=== PATIENT | female | born 1960 | race Caucasian/White ===

== ENCOUNTER → 2020-06-09 17:00 | Outpatient (CLI) | payer OTHER, SELFPAY ==
--- NOTE | ~2020-06-09 | MM_ITS ---
EXAMINATION: MM screening [facility] BI w mandeep HISTORY: Screening mammogram TECHNIQUE: Craniocaudal and mediolateral oblique 3-D tomosynthesis images were obtained and synthetic 2-D images were generated. CAD analysis was submitted and interpreted. COMPARISON: 11/28/2018, 11/23/2017, 11/03/2016 BREAST PARENCHYMAL COMPOSITION: There are scattered areas of fibroglandular density. FINDINGS: RIGHT BREAST: There are masses in the posterior third of the upper outer and lower-outer quadrants of the breast. LEFT BREAST: There is no evidence of suspicious mass, calcification, or architectural distortion to s uggest malignancy. There has been no significant interval change. IMPRESSION: 1. Right breast masses. 2. Additional mammographic views and possible breast ultrasound are recommended. BI-RADS Category 0: Incomplete: Needs additional imaging evaluation. Reviewed, dictated and finalized at location A. PATIONAL HEALTH MANAGER IMPRESSION: 1. Right breast masses. 2. Additional mammographic views and possible breast ultrasound are recommended . BI-RADS Category 0: Incomplete: Needs additional imaging evaluation.
== END ==
PROVIDERS: PCP Registered Nurse; Visit Provider Registered Nurse
DX: Z12.31 Encounter for screening mammogram for malignant neoplasm of breast (principal); R92.8 Other abnormal and inconclusive findings on diagnostic imaging of breast
CPT/HCPCS: 77063; 77067

== ENCOUNTER → 2020-07-12 14:04 | Outpatient (CLI) | payer OTHER, SELFPAY ==
--- NOTE | ~2020-07-12 | MMUS_ITS ---
EXAMINATION: MM diagnostic [facility] RT w mandeep, US breast RT complete HISTORY: Right breast masses reported in posterior third of upper outer and lower-outer quadrants on 06/09/2020 screening mammogram TECHNIQUE: Additional 3-D tomosynthesis images of the right breast were performed and synthetic 2-D i mages were generated. CAD analysis was submitted and interpreted. High resolution complete right [address] ultrasound was performed. COMPARISON: 06/09/2020 bilateral digital screening mammogram FINDINGS: MAMMOGRAPHIC FINDINGS: There is nodular appearing stroma of the right breast. Scattered circumscribed up to approximately 6 mm opacities are noted. Sonographic correlation of the complete right breast was obtained. ULTRASOUND: No suspicious solid lesion or suspicious shadowing of the right breast is evident. C7-8:00 3 cm from nipple: Parallel circumscribed oval hypoechoic 6.4 x 3.9 x 6.3 mm lesion without frank spicious shadowing 9:00 6 cm from nipple: 5 x 2.6 x 3.3 mm parallel circumscribed hypoechoic lesion without suspicious s hadowing 9:00 6 cm from nipple: 3.8 x 3.8 x 4.2 mm sonolucency with through transmission posterior enhancement , consistent with small cyst 9:00 subareolar area: 3.3 x 3.4 mm hypoechoic lesion without suspicious shadowing 10:00-11:00 7.5 cm from nipple: 2.9 x 3.2 x 2.4 mm sonolucent or hypoechoic lesion without suspicious shadowing. IMPRESSION: 1. No mammographic evidence malignancy 2. Routine annual mammographic screening is recommended. BI-RADS Category 2: Benign finding(s). Reviewed, dictated and finalized at location A. PALLIATIVE CARE IMPRESSION: 1. No mammographic evidence malignancy 2. Routine annual mammographic screening is recommended. BI-RADS Category 2: Benign finding(s).
== END ==
PROVIDERS: PCP Registered Nurse; Visit Provider Registered Nurse
DX: N63.10 Unspecified lump in the right breast, unspecified quadrant (principal)
CPT/HCPCS: 76641; 77061; 77065; G0279

== ENCOUNTER → 2020-11-19 10:18 | Outpatient (CLI) | payer OTHER, SELFPAY ==
--- NOTE | ~2020-11-19 | US_ITS ---
US abdomen limited INDICATION: Right upper quadrant pain PROCEDURE: Realtime right upper abdominal ultrasound. COMPARISON: No prior studies for comparison. FINDINGS: The pancreas is normal without focal mass or pancreatic ductal dilation. Liver echotexture is normal without focal mass or intrahepatic biliary dilatation. There is normal directional flow i n the portal vein. The gallbladder is normal without stones, gallbladder wall thickening or pericholecystic fluid. Comm on bile duct measures 4.8 mm. No sonographic Turner's sign. IMPRESSION: 1: Normal limited abdominal ultrasound. Reviewed, dictated and finalized at location A.
== END ==
PROVIDERS: PCP Registered Nurse; Visit Provider Registered Nurse
DX: R10.11 Right upper quadrant pain (principal)
CPT/HCPCS: 76705

== ENCOUNTER 2022-03-12 15:29 | Outpatient (CLI) | payer OTHER, SELFPAY ==
[2022-03-13 11:39] LABS: Toxigenic C. Diff NEGATIVE (NEGATIVE)
== END 2022-03-12 15:30 | disposition home or self-care (01) ==
LOC: ANHLAB 15:32
PROVIDERS: PCP Registered Nurse; Visit Provider Internal Medicine Nephrology
DX: C90.01 Multiple myeloma in remission (principal); R19.7 Diarrhea, unspecified
CPT/HCPCS: 36415; 84443; 87045; 87077; 87177; 87186; 87209; 87427; 87493

== ENCOUNTER → 2023-05-01 12:43 | Outpatient (CLI) | payer OTHER, SELFPAY ==
--- NOTE | ~2023-05-01 | CT_ITS ---
CT Scan of the Chest without Contrast: Clinical Indication: Abnormal chest x-ray Technique: Contiguous sections were acquired throughout the chest without intravenous contrast. Dose reduction technique was used on this scan by utilizing automated exposure control and iterative recon struction technique. The dose-length product (DLP) was 163.74 mGy-cm. Findings: There is no evidence of any significant mediastinal, hilar or axillary lymphadenopathy. The mediastin al soft tissues appear normal. There is no evidence of pleural or pericardial effusion. The lungs are clear. No pulmonary nodules or infiltrates are noted. Images through the upper abdomen reveal no abnormalities. Impression: No significant abnormalities seen. Reviewed, dictated and finalized at location . OMER AGENT Impression: No significant abnormalities seen.
== END ==
PROVIDERS: Visit Provider Registered Nurse
DX: R93.89 Abnormal findings on diagnostic imaging of other specified body structures (principal)
CPT/HCPCS: 71250

== ENCOUNTER 2023-12-05 14:45 | Outpatient (CLI) | payer OTHER, SELFPAY ==
--- NOTE | ~2023-12-05 | MM_ITS ---
EXAMINATION: MM screening [facility] BI w mandeep HISTORY: Screening TECHNIQUE: Craniocaudal and mediolateral oblique 3-D tomosynthesis images were obtained and synthetic 2-D images were generated. CAD analysis was submitted and interpreted. COMPARISON: No prior mammogram is available for comparison at this institution. BREAST PARENCHYMAL COMPOSITION: Dense: The breasts are heterogeneously dense, which may obscure small masses FINDINGS: There are multiple developing bilateral breast masses. There are no suspicious calcificatio ns or architectural distortion. IMPRESSION: 1. Multiple bilateral developing breast masses. 2. Additional spot compression and mediolateral views with possible follow-up breast ultrasound recom mended. BI-RADS Category 0: Incomplete: Needs additional imaging evaluation. Reviewed, dictated and finalized at location B. IMPRESSION: 1. Multiple bilateral developing breast masses. 2. Additional spot compression and mediolateral views with possible follow-up b reast ultrasound recommended. BI-RADS Category 0: Incomplete: Needs additional imaging evaluation.
== END 2023-12-05 14:46 ==
PROVIDERS: PCP Registered Nurse; Visit Provider Registered Nurse
DX: Z12.31 Encounter for screening mammogram for malignant neoplasm of breast (principal); N63.20 Unspecified lump in the left breast, unspecified quadrant; N63.10 Unspecified lump in the right breast, unspecified quadrant
CPT/HCPCS: 77063; 77067

== ENCOUNTER 2024-01-20 08:08 | Outpatient (CLI) | payer OTHER, SELFPAY ==
--- NOTE | ~2024-01-20 | MMUS_ITS ---
EXAMINATION: MM diagnostic [facility] BI w mandeep, US breast BI complete HISTORY: Follow-up bilateral breast masses TECHNIQUE: Additional 3-D tomosynthesis images of the breasts were performed and synthetic 2-D images were generated. CAD analysis was submitted and interpreted. High resolution bilateral complete breas t ultrasound was performed. COMPARISON: Comparison to multiple prior studies sequentially, with oldest reviewed study dated 11/03. BREAST PARENCHYMAL COMPOSITION: Dense: The breasts are heterogeneously dense, which may obscure small masses FINDINGS: MAMMOGRAPHIC FINDINGS: There are bilateral breast masses which are obscured by dense fibroglandular tissue. There are no nancy picious calcifications or architectural distortion. ULTRASOUND: Complete bilateral US of all 4 quadrants of the breasts and retroareolar region was reviewed. Right breast: Multiple simple and complicated cysts of the right breast which are benign. At 2:00, 5 cm from the nipple there is a 6 mm intramammary lymph node. At 7:00, 4 cm from the nipple there is ov al hypoechoic 3 mm mass, likely benign. At 10:00, 8 cm from the nipple there is an oval hypoechoic 1 cm mass which is parallel orientation, posterior acoustic enhancement, likely benign. At 10:00, 8 cm from the nipple there is an oval hypoechoic 6 mm mass, likely benign. Left breast: There are multiple simple and complicated cyst of the left breast which are benign. At 2 :00, 2 cm from the nipple there is an oval hypoechoic 4 mm mass, likely benign. At 3:00, 2 cm from th e nipple there is an oval parallel oriented hypoechoic 6 mm mass, likely benign. At 2:00, 3 cm from t he nipple there is an oval hypoechoic 3 mm mass, likely benign. IMPRESSION: 1. Probable benign bilateral breast masses by ultrasound. 2. Recommend 6 month follow-up diagnostic bilateral mammogram and limited bilateral breast ultrasound . BI-RADS category 3, probably benign findings. Reviewed, dictated and finalized at location B. IMPRESSION: 1. Probable benign bilateral breast masses by ultrasound. 2. Recommend 6 month follow-up diagnostic bilateral mammogram and limited bilat eral breast ultrasound. BI-RADS category 3, probably benign findings.
== END 2024-01-20 08:09 ==
LOC: MICIMG 08:10
PROVIDERS: PCP Registered Nurse; Visit Provider Registered Nurse
DX: R92.8 Other abnormal and inconclusive findings on diagnostic imaging of breast (principal)
CPT/HCPCS: 76641; 77062; 77066; G0279

== ENCOUNTER 2024-08-26 13:11 | Outpatient (CLI) | payer OTHER, SELFPAY ==
--- NOTE | ~2024-08-26 | MMUS_ITS ---
EXAMINATION: MM diagnostic aziza BI w mandeep, US breast BI limited HISTORY: Six-month follow-up TECHNIQUE: 3-D tomosynthesis images of the breasts were performed and synthetic 2-D images were gener ated. CAD analysis was submitted and interpreted. High resolution limited bilateral breast ultrasound was performed. COMPARISON: 01/20/2024, 12/05/2023, 07/12/2020 BREAST PARENCHYMAL COMPOSITION:Dense: The breasts are heterogeneously dense, which may obscure small masses. FINDINGS: MAMMOGRAPHIC FINDINGS: There are multiple low-density circumscribed bilateral masses, some mildly increased, some mildly dec reased. No suspicious calcifications. No distortion are overtly suspicious mass evident. ULTRASOUND: Multiple small scattered cysts are present bilaterally. No overtly suspicious sonographic masses seen in the region scanned. IMPRESSION: No evidence for malignancy. Benign appearing masses bilaterally. BI-RADS Category 2: Benign finding(s). Reviewed, dictated and finalized at location . ME TAX ADJUSTER IMPRESSION: No evidence for malignancy. Benign appearing masses bilaterally. BI-RADS Category 2: Benign finding(s).
--- OUTSIDE RECORDS SUMMARY | 2024-08-26 14:31 | XMS_ITS | Clinical Summary ---
Author Organization [facility] Address [address] [place] [id number] Phone Care Team Providers Care Risk Control Consultant Name Role Phone Gwen Lui Primary Care Provider [phone] Allergies No known active allergies Medications Medication Sig Dispensed Refills Start Date End Date Status cetirizine (ZyrTEC) 10 MG tablet 1 daily 08/29/2015 Active Calcium Carbonate-Vitamin D (CALCIUM PLUS VITAMIN D) 500-50 MG-UNIT capsule 1 dialy 0 10/23/2017 Active omeprazole (PriLOSEC) [address] capsule 1 daliy 0 05/07/2018 Active fluticasone (FLONASE) 50 MCG/ACT nasal spray SHAKE LQ AND U 2 SPRAYS IEN QD 0 03/09/2019 Active famotidine (PEPCID) 20 MG tablet 05/13/2021 Active Daratumumab-Hyaluron idase-fihj 1800-23570 MG-UT/15ML solution 02/28/2021 Activ e acyclovir (ZOVIRAX) 400 MG tablet 03/30/2021 Active aspirin EC 325 MG EC tablet 05/19/2021 Active al mag oxide-diphenhydrAMIN E-nystatin (MAGIC MOUTHWASH) suspension SWISH AND SWALLOW 10 ML BY MOUTH EVERY 4 HOURS NEEDED FOR MUCOSITIS 05/02/2021 Active amLODIPine (NORVASC) 2.5 MG tablet Take 1 tablet (2.5 mg total) by mouth 1 (one) time each day 90 tablet 3 10/11/2021 Active immune globulin, human, (FLEBOGAMMA) infusion Infuse into a venous catheter Active Denosumab (Xgeva) 120 MG/1.7ML solution Inject 120 mg under the skin Active dexamethasone (DECADRON) 4 MG tablet 02/15/2022 Active ezetimibe (ZETIA) 10 MG tablet TAKE 1 TABLET(10 MG) BY MOUTH EVERY DAY 30 tablet 5 05/08/2022 Active pravastatin (PRAVACHOL) 20 MG tablet TAKE 1 TABLET(20 MG) BY MOUTH EVERY DAY 30 tablet 5 06/18/2022 Active Active Problems Problem Noted Date Diagnosed Date Diarrhea 03/12/2022 Essential hypertension 10/11/2021 Hypogammaglobulinemia 07/07/2021 History of vaccination 05/24/2021 Hypercalcemia 03/14/2021 Multiple myeloma in remission 07/21/2018 Stage 3b chronic kidney disease 04/24/2017 Immunizations Name Administration Dates Next Due Hepatitis B 07/02/2019,05/28/2019 Influenza Injectable Mdck Qu adrivalent Preservative 03/19/2019 Influenza LAIV (Nasal) 03/22/2016 Influenza TIV (IM) 02/22/2019,03/25/2013 Influenza, Injectable, Mdck, Preservative Free, Quadrivalt 03/19/2019 Influenza, Injectable, Quadr ivalent, Preservative Free 03/13/2018,03/28/2017 Influenza, Quadrivalent 03/22/2016 Influenza, Unspecified 03/30/2021,2019,03/31/2020,02/22,03/13/2018,03/13/2018,03/28/2017 ,03/28/2017,03/22/2016,03/22/2016,07/2012 Pneumococcal Conjugate 13-Valent 05/04/2021,08/23 Pneumococcal Polysaccharide 11/05/2016 Tdap 05/25/2019,11/26/2016 Zoster 02/15/2018 Zoster Recombinant 07/19/2018,02/16/2018, 018 Family History Medical History Relation Comments Cerebrovascular accident Father Heart disease Mother Kidney disease Neg Hx Kidney stone Neg Hx Relation Status Comments Father Mother Social History Tobacco Use Types Packs/Day Years Used Date Smoking Tobacco: Never Smokeless Tobacco: Never Alcohol Use Standard Drinks/Week Comments No 0 (1 standard drink = 0.6 oz pur e alcohol) AUDIT-C Answer Date Recorded Frequency of Alcohol Consumption Never 11/05/2018 Average Number of Drinks Not on file 019 Frequency of Binge Drinking Not on file 10/22 Sex and Gender Information Value Date Recorded Sex Assigned at Not on file Gender Identity Not on file Sexual Orientation Not on file Last Filed Vital Signs Vital Sign Reading Time Taken Comments Blood Pressure 122/70 03/12/2022 2:48 PM CDT Pulse 72 03/12/2022 2:48 PM CDT Temperature 35.8 C (96.4 F) 03/12/2022 2:48 PM CDT Respiratory Rate - - Oxygen Saturation - - Inhaled Oxygen Concentration - - Weight 64.9 kg (143 lb) 03/12/2022 2:48 PM CDT Height 165.1 cm (5' 5 ) 03/12/2022 2:48 PM CDT Body Mass Index 23.8 03/12/2022 2:48 PM CDT Plan of Treatment Health Maintenance Due Date Last Done Comments Pneumococcal PPSV23/PCV13 65 + Years / Low and Medium Risk (3 of 3 - PPSV23 or PCV20) 10/26/2023 05/04/2021, 11/05/2016, 09/10/2016 COVID-19 Vaccine (3 - 2023-2 5 season) 2024 02/03/2021, 01/13/2021 Influenza Vaccine (#1) 2024 , 03/31/2020, 03/31/2020, Additional history exists Care Teams Risk Control Consultant Relationship Specialty Start Date End Date Gwen Lui [facility] [place] [address] PCP - General Family Medicine 11/07/20
--- OUTSIDE RECORDS SUMMARY | 2024-08-26 14:31 | XMS_ITS | Referral Summary ---
Author Organization [facility] Address [address] [place] [address] Care Team Providers Care Sieve Grader Tender Name Role Phone Herson Adkins MD Unavailable Gwen Lui Primary Care Provider + Encounters Date Type Department Care Team Description 08/25/2024 3:00 PM AIRCRAFT ENGINE MECHANIC SUPERVISOR Infusion [facility] - Infusion [address] [address] Multiple myeloma in relapse (HCC) (Primary Dx) 08/25/2024 2:00 PM AIRCRAFT ENGINE MECHANIC SUPERVISOR Lab [facility] - Lab Collection [address] [facility] [address] [place] [address] Multiple myeloma in relapse (HCC) 08/19/2024 Orders Only [facility] Bone Marrow Transplant [address] [phone] Luisa Brizuela NP Multiple myeloma in relapse (HCC) (Primary Dx) 08/12/2024 8:50 AM AIRCRAFT ENGINE MECHANIC SUPERVISOR E-Visit [facility] Virtual Care [address] [place] [address] Delmy Turcios NP Your Medications 08/12/2024 Patient Self-Triage [facility] [address] [place] [address] Mychart, Generic Provider 07/28/2024 Orders Only [facility] Bone Marrow Transplant 4500 [facility] Floor [address] [place] [address] Nicolas PariAngel Luis mckeon 07/28/2024 11:00 AM AIRCRAFT ENGINE MECHANIC SUPERVISOR Infusion [facility] - Infusion [address] [place] [address] Multiple myeloma in relapse (HCC) (Primary Dx); Multiple myeloma not having achieved remission (HCC); Hypogammaglobulinem ia 07/28/2024 1:30 PM AIRCRAFT ENGINE MECHANIC SUPERVISOR Infusion [facility] - Infusion [address] [place] [address] Multiple myeloma, remission status unspecified (HCC) 07/28/2024 9:00 AM AIRCRAFT ENGINE MECHANIC SUPERVISOR Clinical Support [facility] - Lab Collection 45[address] [facility] Floor [address] [place] [address] Multiple myeloma in relapse (HCC); Multiple myeloma, remission status unspecified (HCC) 07/28/2024 10:00 AM AIRCRAFT ENGINE MECHANIC SUPERVISOR Office Visit [facility] Bone Marrow Transplant [facility] [address] [phone] Luisa Brizuela NP Multiple myeloma in relapse (HCC) (Primary Dx); Multiple myeloma, remission status unspecified (HCC) 07/08/2024 12:39 PM AIRCRAFT ENGINE MECHANIC SUPERVISOR - 07/08/2024 11:59 PM AIRCRAFT ENGINE MECHANIC SUPERVISOR Hospital Encounter [address] [address] Chronic kidney disease (CKD) stage G3b/A1, moderately decreased glomerular filtration rate (GFR) between 30-44 mL/min/1.73 square meter and albuminuria creatinine ratio less than 30 mg/g (HCC) Discharge Disposition: Discharge to home or self care 07/08/2024 1:45 PM AIRCRAFT ENGINE MECHANIC SUPERVISOR Lab [facility] Outpatient Lab at [address] [phone] 07/07/2024 12:39 PM AIRCRAFT ENGINE MECHANIC SUPERVISOR - 07/07/2024 11:59 PM AIRCRAFT ENGINE MECHANIC SUPERVISOR Hospital Encounter [address] [address] Chronic kidney disease (CKD) stage G3b/A1, moderately decreased glomerular filtration rate (GFR) between 30-44 mL/min/1.73 square meter and albuminuria creatinine ratio less than 30 mg/g (HCC) Discharge Disposition: Discharge to home or self care 07/07/2024 12:30 PM AIRCRAFT ENGINE MECHANIC SUPERVISOR Lab [facility] Outpatient Lab at [address] [address] Chronic kidney disease (CKD) stage G3b/A1, moderately decreased glomerular filtration rate (GFR) between 30-44 mL/min/1.73 square meter and albuminuria creatinine ratio less than 30 mg/g (HCC) (Primary Dx) 07/02/2024 Orders Only [facility] Bone Marrow Transplant [facility] Floor [address] [place] [address] Nkechi kearney, Herson Delgado MD Multiple myeloma, remission status unspecified (HCC) (Primary Dx) 06/30/2024 9:30 AM AIRCRAFT ENGINE MECHANIC SUPERVISOR Infusion [facility] - Infusion [address] [facility] Floor [address] [place] [address] Multiple myeloma in relapse (HCC) (Primary Dx) 06/30/2024 8:30 AM AIRCRAFT ENGINE MECHANIC SUPERVISOR Lab [facility] - Lab Collection [address] [place] [address] Floor 6 [place] [address] Multiple myeloma in relapse (HCC) 06/29/2024 Orders Only [facility] Oncology [address] [place] [phone] Luisa Brizuela NP from Last 3 Months Allergies No known active allergies Medications calcium carbonate-vitami n D3 600 mg(1,500mg) -500 unit capsule Take by mouth 8 Active cetirizine (ZyrTEC) 10 mg tablet 0 Active fluticasone propionate (FLONASE) 50 mcg/actuation nasal spray SHAKE LQ AND U 2 SPRAYS IEN D 0 Active famotidine (PEPCID) 20 mg tablet 1 Active ezetimibe (ZETIA) 10 mg tablet 1 Active pravastatin (PRAVACHOL) 20 mg tablet 2 Active amLODIPine (NORVASC) 10 mg tablet Take 1 tablet (10 mg total) by mouth daily 3 Active denosumab (Xgeva) 120 mg/1.7 mL (70 mg/mL) injection Inject 1.7 mL (120 mg total) under the skin Active denosumab (Xgeva) 120 mg/1.7 mL (70 mg/mL) injection Inject 1.7 mL (120 mg total) under the skin Active dexAMETHasone (DECADRON) 4 mg tablet 3 Active hydroCHLOROthiaz danyelle (MICROZIDE) 12.5 mg capsule Take 1 capsule (12.5 mg total) by mouth daily 3 Active immune globulin (FLEBOGAMMA) infusion Infuse into a venous catheter Active sodium bicarbonate 650 mg tablet TAKE 1 TABLET BY MOUTH TWICE DAILY ON A FULL STOMACH 3 Active prochlorperazine (COMPAZINE) 10 mg tabletIndication s:Multiple myeloma in relapse (HCC) TAKE 1 TABLET(10 MG) BY MOUTH EVERY 6 HOURS NEEDED FOR NAUSEA OR VOMITING 30 tablet 3 4 Active diphenhydrAMINE (BENADRYL) 25 mg capsuleIndicatio ns:Multiple myeloma in relapse (HCC) Take 1 tablet/capsule (25 mg total) by mouth once for 1 dose Take one to three hours prior to each daratumumab dose. 1 tablet/capsu le 5 Active acyclovir (ZOVIRAX) 400 mg tabletIndication s:Multiple myeloma in relapse (HCC) TAKE 1 TABLET BY MOUTH THREE TIMES DAILY 270 tablet 5 Active amoxicillin-clav ulanate (Augmentin) 875-125 mg per tablet Take 1 tablet by mouth 2 (two) times a day 20 tablet 5 Active Active Problems Problem Noted Date Diagnosed Date Diarrhea 03/12/2022 Essential hypertension 10/11/2021 Multiple myeloma not having achieved remission 0 07/07/2021 Hypogammaglobulinemia 07/07/2021 Hypercalcemia 03/14/2021 Multiple myeloma in relapse 01/10/2021 Chronic bilateral low back pain without sciatica 07/19/2019 Hyperlipemia 05/25/2019 Osteoporosis without current pathological fractu re 01/05/2019 Assessment & Plan (01/12/2019 3:45 PM CDT): -received a low dose of Zometa 3 mg in September -her vitamin D level is normal, will continue current calcium and vitamin D supplementation -we discussed the importance of weight bearing exercise -will plan to repeat DEXA scan in 09/2019 Multiple myeloma in remission 07/21/2018 Stage 3 chronic kidney disease 04/24/2017 Abnormality of plasma protein 08/01/2015 Resolved Problems Problem Noted Date Diagnosed Date Resolved Date Kidney problem 04/03/2019 04/03/2019 Bone fracture 04/03/2019 04/03/2019 Overview (04/03/2019): Wrist, foot Muscle tension dysphonia 10/26/201804/2019 Multiple myeloma 08/17/2015 04/03/2019 Immunizations Immunization Administration Dates Next Due Hep B Vaccine 07/02/2019,05/28/2019 Influenza LAIV (Nasal) 03/22/2016 Influenza, Quadrivalent, Abby l Culture-based MDCK, Antibiotic Free, Intramuscular 03/19/2019 Influenza, Quadrivalent, Spl it, Intramuscular 03/22/2016 Influenza, Quadrivalent, Spl it, Preservative Free, Intramuscular 03/13/2018,03/28/2017 Influenza, Trivalent, IM (MDV) 03/25/2013 Influenza, Unspecified 03/21/2023,2021,03/30/2021,03/31,02/22/2019 Pneumococcal Conjugate PCV 13 05/04/2021, 017 Pneumococcal Polysaccharide PPV23 11/05/2016 Tdap 05/25/2019,11/26/2016 ZOSTER LIVE 02/15/2018 ZOSTER Recombinant 07/19/2018,02/16/2018, 018 Social History Tobacco Use Types Packs/Day Years Used Date Smoking Tobacco: Never Passive Smoke Exposure: Never Smokeless Tobacco: Never Tobacco Cessation:Counseling Given: Not Answered Alcohol Use Standard Drinks/Week Comments Never 0 (1 standard drink = 0.6 oz pur e alcohol) AUDIT-C Answer Date Recorded Frequency of Alcohol Consumption Never 11/19/2019 Average Number of Drinks Not on file 020 Frequency of Binge Drinking Not on file 10/23 Comments Unknown Sex and Gender Information Value Date Recorded Sex Assigned at Not on file Legal Sex Female 5:16 AM AIRCRAFT ENGINE MECHANIC SUPERVISOR Gender Identity Female 10/09/2019 10:54 AM CDT Sexual Orientation Not on file Last Filed Vital Signs Vital Sign Reading Time Taken Comments Blood Pressure 120/79 08/25/2024 3:35 PM AIRCRAFT ENGINE MECHANIC SUPERVISOR Pulse 96 08/25/2024 3:35 PM AIRCRAFT ENGINE MECHANIC SUPERVISOR Temperature 36.9 C (98.5 F) 08/25/2024 3:35 PM AIRCRAFT ENGINE MECHANIC SUPERVISOR Respiratory Rate 18 08/25/2024 3:35 PM AIRCRAFT ENGINE MECHANIC SUPERVISOR Oxygen Saturation 96% 08/25/2024 3:35 PM AIRCRAFT ENGINE MECHANIC SUPERVISOR Inhaled Oxygen Concentration - - Weight 67.4 kg (148 lb 9.4 oz) 08/25/2024 2:53 P M AIRCRAFT ENGINE MECHANIC SUPERVISOR Height 162.6 cm (5' 4 ) 05/26/2024 9:59 AM AIRCRAFT ENGINE MECHANIC SUPERVISOR Body Mass Index 25.51 05/26/2024 9:59 AM AIRCRAFT ENGINE MECHANIC SUPERVISOR Plan of Treatment Not on file Procedures Procedure Name Priority Date/Time Associated Diagnosis Comments EGFR STAT 08/25/2024 2:18 PM AIRCRAFT ENGINE MECHANIC SUPERVISOR Multiple myeloma in relapse (HCC) DIFFERENTIAL AUTO Routine 08/25/2024 2:1 8 PM AIRCRAFT ENGINE MECHANIC SUPERVISOR Multiple myeloma in relapse (HCC) CBC WITH AUTO DIFFERENTIAL Routine 08/25/2024 2:18 PM AIRCRAFT ENGINE MECHANIC SUPERVISOR Multiple myeloma in relapse (HCC) COMPREHENSIVE METABOLIC PANEL STAT 08/25/2024 2:18 PM AIRCRAFT ENGINE MECHANIC SUPERVISOR Multiple myeloma in relapse (HCC) URIC ACID Routine 08/25/2024 2:18 PM AIRCRAFT ENGINE MECHANIC SUPERVISOR Multiple myeloma in relapse (HCC) EGFR STAT 07/28/2024 9:28 AM AIRCRAFT ENGINE MECHANIC SUPERVISOR Multiple myeloma in relapse (HCC) DIFFERENTIAL AUTO Routine 07/28/2024 9:2 8 AM AIRCRAFT ENGINE MECHANIC SUPERVISOR Multiple myeloma in relapse (HCC) IGA Routine 07/28/2024 9:28 AM AIRCRAFT ENGINE MECHANIC SUPERVISOR Multiple myeloma, remission status unspecified (HCC) IGG Routine 07/28/2024 9:28 AM AIRCRAFT ENGINE MECHANIC SUPERVISOR Multiple myeloma, remission status unspecified (HCC) IGM Routine 07/28/2024 9:28 AM AIRCRAFT ENGINE MECHANIC SUPERVISOR Multiple myeloma, remission status unspecified (HCC) IMMUNOGLOBULIN FREE LIGHT CHAINS Routine 07/28/2024 9:28 AM AIRCRAFT ENGINE MECHANIC SUPERVISOR Multiple myeloma, remission status unspecified (HCC) LACTATE DEHYDROGENASE Routine 07/28/2024 9:28 AM AIRCRAFT ENGINE MECHANIC SUPERVISOR Multiple myeloma, remission status unspecified (HCC) PROTEIN ELECTROPHORESIS, WITH REFLEX, SERUM Routine 07/28/2024 9:28 AM AIRCRAFT ENGINE MECHANIC SUPERVISOR Multiple myeloma, remission status unspecified (HCC) IMMUNOTYPING Routine 07/28/2024 9:28 AM AIRCRAFT ENGINE MECHANIC SUPERVISOR Multiple myeloma, remission status unspecified (HCC) CBC WITH AUTO DIFFERENTIAL Routine 07/28/2024 9:28 AM AIRCRAFT ENGINE MECHANIC SUPERVISOR Multiple myeloma in relapse (HCC) COMPREHENSIVE METABOLIC PANEL STAT 07/28/2024 9:28 AM AIRCRAFT ENGINE MECHANIC SUPERVISOR Multiple myeloma in relapse (HCC) URIC ACID Routine 07/28/2024 9:28 AM AIRCRAFT ENGINE MECHANIC SUPERVISOR Multiple myeloma in relapse (HCC) PROTEIN / CREATININE RATIO, URINE, RANDOM Routine 07/08/2024 9:50 PM AIRCRAFT ENGINE MECHANIC SUPERVISOR Chronic kidney disease (CKD) stage G3b/A1, moderately decreased glomerular filtration rate (GFR) between 30-44 mL/min/1.73 square meter and albuminuria creatinine ratio less than 30 mg/g (HCC) EGFR Routine 07/07/2024 12:39 PM AIRCRAFT ENGINE MECHANIC SUPERVISOR Chronic kidney disease (CKD) stage G3b/A1, moderately decreased glomerular filtration rate (GFR) between 30-44 mL/min/1.73 square meter and albuminuria creatinine ratio less than 30 mg/g (HCC) CBC WITHOUT DIFFERENTIAL Routine 07/07/2024 12:39 PM AIRCRAFT ENGINE MECHANIC SUPERVISOR Chronic kidney disease (CKD) stage G3b/A1, moderately decreased glomerular filtration rate (GFR) between 30-44 mL/min/1.73 square meter and albuminuria creatinine ratio less than 30 mg/g (HCC) RENAL FUNCTION PANEL Routine 07/07/2024 12:39 PM AIRCRAFT ENGINE MECHANIC SUPERVISOR Chronic kidney disease (CKD) stage G3b/A1, moderately decreased glomerular filtration rate (GFR) between 30-44 mL/min/1.73 square meter and albuminuria creatinine ratio less than 30 mg/g (HCC) PTH Routine 07/07/2024 12:39 PM AIRCRAFT ENGINE MECHANIC SUPERVISOR Chronic kidney disease (CKD) stage G3b/A1, moderately decreased glomerular filtration rate (GFR) between 30-44 mL/min/1.73 square meter and albuminuria creatinine ratio less than 30 mg/g (HCC) EGFR STAT 06/30/2024 8:40 AM AIRCRAFT ENGINE MECHANIC SUPERVISOR Multiple myeloma in relapse (HCC) DIFFERENTIAL AUTO Routine 06/30/2024 8:4 0 AM AIRCRAFT ENGINE MECHANIC SUPERVISOR Multiple myeloma in relapse (HCC) CBC WITH AUTO DIFFERENTIAL Routine 06/30/2024 8:40 AM AIRCRAFT ENGINE MECHANIC SUPERVISOR Multiple myeloma in relapse (HCC) COMPREHENSIVE METABOLIC PANEL STAT 06/30/2024 8:40 AM AIRCRAFT ENGINE MECHANIC SUPERVISOR Multiple myeloma in relapse (HCC) URIC ACID Routine 06/30/2024 8:40 AM AIRCRAFT ENGINE MECHANIC SUPERVISOR Multiple myeloma in relapse (HCC) DEXA AXIAL SKELETON BONE DENSITY 1 OR MORE SITES Schedule Routine, Read Routine (OP Routine) 09/17/2023 9:31 AM CDT Osteoporosis without current pathological fracture, unspecified osteoporosis type from Last 3 Months or Most Recently Relevant to Health Maintenance Results * (ABNORMAL) eGFR (08/25/2024 2:18 PM AIRCRAFT ENGINE MECHANIC SUPERVISOR) eGFR 40(L) >=60 mL/min/1. 73 m2 Comment: Interpretive Data Reference Interval Normal >/= 90 mL/min/1.73m2 Mildly decreased* 60 - 89 mL/min/1.73m2 Mildly to moderately decreased 45 - 59 mL/min/1.73m2 Moderately to severely decreased 30 - 44 mL/min/1.73m2 Severely decreased 15 - 29 mL/min/1.73m2 Kidney Failure < 15 mL/min/1.73m2 *Relative to young adult level Estimated glomerular filtration rate is determined by the 2020 CKD-EPI equation recommended by the National Kidney Foundation (A Unifying Approach to GFR Estimation: Recommendations of the NKF-ASK Task Force on Reassessing the Inclusion of Race in Diagnosing Kidney Disease, JASN 2020). The CKD-EPI equation should not be used for patients with unstable renal function and has not been validated in children and those over 70. Current interpretive data was last reviewed 2021. Blood 08/25/2024 2:18 PM AIRCRAFT ENGINE MECHANIC SUPERVISOR 08/25/2024 2:35 PM AIRCRAFT ENGINE MECHANIC SUPERVISOR Luisa Brizuela NP LAB BLOOD ORDERABLES Mary lockhart Result [facility] Department [place] [address] * (ABNORMAL) Differential, auto (08/25/2024 2:18 PM AIRCRAFT ENGINE MECHANIC SUPERVISOR) Neutrophil abs 2.9 1.5 - 6.5 K/cumm Comment:Testing performed by : [facility], [address] [place] [address] Lymphocyte abs 4.5(H) 0.8 - 3.3 K/cumm [facility] Comment:Testing performed by : [facility], [address] [place] [address] Monocyte abs 0.8 0.2 - 0.8 K/cumm [facility] Comment:Testing performed by : [facility], [address] [place] [address] Eosinophil abs 0.1 0.0 - 0.5 K/cumm [facility] Comment:Testing performed by : [facility], [address] [place] [address] Basophil abs 0.0 0.0 - 0.1 K/cumm [facility] Comment:Testing performed by : [facility], [address] [place] [phone] Neutrophil pct 34.7 % [facility] Comment: Interpretive Data Percent cell count reference ranges are not reported, since discordance with absolute values may lead to misinterpretation of CBC data. Current Interpretive Data was last revised on 2017. Testing performed by: [facility], [address] [place] [phone] Lymphocyte pct 54.1 % [facility] Comment: Interpretive Data Percent cell count reference ranges are not reported, since discordance with absolute values may lead to misinterpretation of CBC data. Current Interpretive Data was last revised on 2017. Testing performed by: [facility], [address] [place] [phone] Monocyte pct 9.7 % [facility] Comment: Interpretive Data Percent cell count reference ranges are not reported, since discordance with absolute values may lead to misinterpretation of CBC data. Current Interpretive Data was last revised on 2017. Testing performed by: [facility], [address] [place] [phone] Eosinophil pct 1.3 % [facility] Comment: Interpretive Data Percent cell count reference ranges are not reported, since discordance with absolute values may lead to misinterpretation of CBC data. Current Interpretive Data was last revised on 2017. Testing performed by: [facility], [address] [place] [phone] Basophil pct 0.2 % [facility] Comment: Interpretive Data Percent cell count reference ranges are not reported, since discordance with absolute values may lead to misinterpretation of CBC data. Current Interpretive Data was last revised on 2017. Testing performed by: [facility], [address] [place] [phone] Blood 08/25/2024 2:18 PM AIRCRAFT ENGINE MECHANIC SUPERVISOR 08/25/2024 2:34 PM AIRCRAFT ENGINE MECHANIC SUPERVISOR Luisa Brizuela VIDEOTAPE SALES REPRESENTATIVE LAB BLOOD ORDERABLES Mary richy Result [facility] Department of [place] [phone] * (ABNORMAL) CBC with auto differential (08/25/2024 2:18 PM AIRCRAFT ENGINE MECHANIC SUPERVISOR) WBC 8.3 3.8 - 9.9 K/cumm Comment:Testing performed by : [facility], [address] [place] [address] Hgb 12.9 11.9 - 15.5 g/dL [facility] Comment:Testing performed by : [facility], [address] [place] [address] Hct 37.8 35.6 - 45.5 % [facility] Comment:Testing performed by : [facility], [address] [place] [address] Plt 202 150 - 400 K/cumm [facility] Comment:Testing performed by : [facility], [address] [place] [address] MPV 8.2 6.8 - 10.4 fL [facility] Comment:Testing performed by : [facility], [address] [place] [address] RBC 3.97 3.90 - 5.20 M/cumm [facility] Comment:Testing performed by : [facility], [address] [place] [address] MCV 95.5 81.3 - 96.4 fL [facility] Comment:Testing performed by : [facility], [address] [place] [address] MCH 32.6 27.1 - 33.3 pg [facility] Comment:Testing performed by : [facility], [address] [place] [address] MCHC 34.2 32.3 - 35.7 g/dL [facility] Comment:Testing performed by : [facility], [address] [place] [address] RDW CV 16.1(H) 11.1 - 14.9 % [facility] Comment:Testing performed by : [facility], [address] [place] [phone] NRBC abs 0.00 0.00 - 0.01 K/cumm [facility] Comment:Testing performed by : [facility], [address] [place] [phone] Blood 08/25/2024 2:18 PM AIRCRAFT ENGINE MECHANIC SUPERVISOR 08/25/2024 2:34 PM AIRCRAFT ENGINE MECHANIC SUPERVISOR Luisa Brizuela LAB BLOOD ORDERABLES Mary l Result [facility] Department [place] [address] * (ABNORMAL) Uric acid (08/25/2024 2:18 PM AIRCRAFT ENGINE MECHANIC SUPERVISOR) Uric acid 7.7(H) 2.5 - 7.0 mg/dL Blood 08/25/2024 2:18 PM AIRCRAFT ENGINE MECHANIC SUPERVISOR 08/25/2024 2:35 PM AIRCRAFT ENGINE MECHANIC SUPERVISOR [facility] LAB BLOOD ORDERABLES Mary l Result Performing Organization Address [facility] de Phone Number [facility] Department [place] [address] * (ABNORMAL) Comprehensive metabolic panel (08/25/2024 2:18 PM AIRCRAFT ENGINE MECHANIC SUPERVISOR) Sodium 147(H) 135 - 145 mmol/L Potassium, pl 3.7 3.3 - 4.9 mmol/L [facility] Chloride 108 97 - 110 mmol/L [facility] CO2 30 22 - 32 mmol/L [facility] Anion gap 9 2 - 15 mmol/L [facility] BUN 17 6 - 25 mg/dL [facility] Creatinine 1.46(H) 0.60 - 1.10 mg/dL [facility] Glucose 89 70 - 199 mg/dL [facility] Comment: Interpretive Data Fasting glucose >/= 126 mg/dl is diagnostic for diabetes. Fasting is defined as no caloric intake for at least 8 hours. Fasting glucose between 100 mg/dl to 125 mg/dl is diagnostic of prediabetes. In a patient with classic symptoms of hyperglycemia or hyperglycemic crisis, a random glucose >/= 200 mg/dl is diagnostic for diabetes. In the absence of unequivocal hyperglycemia, results should be confirmed by repeat testing. The classification and Diagnosis of Diabetes Diabetes Care 2021; 46: S19-S40. Current interpretive data was last revised 2022. Calcium 9.6 8.5 - 10.3 mg/dL [facility] Bilirubin, total 0.3 0.1 - 1.2 mg/dL [facility] Protein, pl 7.0 6.5 - 8.5 g/dL [facility] Albumin 4.3 3.5 - 5.0 g/dL [facility] Alk phos 59 40 - 130 Units/L [facility] ALT 29 7 - 45 Units/L [facility] AST 20 10 - 45 Units/L [facility] Blood 08/25/2024 2:18 PM AIRCRAFT ENGINE MECHANIC SUPERVISOR 08/25/2024 2:35 PM AIRCRAFT ENGINE MECHANIC SUPERVISOR us Luisa Brizuela NP LAB BLOOD ORDERABLES Mary l Result [facility] Department of [employer] [place] [address] * Immunotyping, serum with interpretation (07/28/2024 9:28 AM AIRCRAFT ENGINE MECHANIC SUPERVISOR) Immunosubtraction Please see comment Comment: NO PARAPROTEIN DETECTED Reviewed and signed by Clay Roman MD, PhD 07/29/2024 Blood 07/28/2024 9:28 AM AIRCRAFT ENGINE MECHANIC SUPERVISOR 07/28/2024 10:49 AM AIRCRAFT ENGINE MECHANIC SUPERVISOR us Herson Adkins MD LAB BLOOD ORDER EMILY Final Result [facility] Department of [employer] [place] [address] * (ABNORMAL) eGFR (07/28/2024 9:28 AM AIRCRAFT ENGINE MECHANIC SUPERVISOR) eGFR 48(L) >=60 mL/min/1. 73 m2 Comment: Interpretive Data Reference Interval Normal >/= 90 mL/min/1.73m2 Mildly decreased* 60 - 89 mL/min/1.73m2 Mildly to moderately decreased 45 - 59 mL/min/1.73m2 Moderately to severely decreased 30 - 44 mL/min/1.73m2 Severely decreased 15 - 29 mL/min/1.73m2 Kidney Failure < 15 mL/min/1.73m2 *Relative to young adult level Estimated glomerular filtration rate is determined by the 2020 CKD-EPI equation recommended by the National Kidney Foundation (A Unifying Approach to GFR Estimation: Recommendations of the NKF-ASK Task Force on Reassessing the Inclusion of Race in Diagnosing Kidney Disease, JASN 2020). The CKD-EPI equation should not be used for patients with unstable renal function and has not been validated in children and those over 70. Current interpretive data was last reviewed 2021. Blood 07/28/2024 9:28 AM AIRCRAFT ENGINE MECHANIC SUPERVISOR 07/28/2024 9:44 AM AIRCRAFT ENGINE MECHANIC SUPERVISOR Herson Adkins MD LAB BLOOD ORDER EMILY Final Result [facility] Department [place] [address] * Differential, auto (07/28/2024 9:28 AM AIRCRAFT ENGINE MECHANIC SUPERVISOR) Pathologist [facility] Neutrophil abs 5.2 1.5 - 6.5 K/cumm Comment:Testing performed by : [facility], [address] [place] [phone] Lymphocyte abs 3.1 0.8 - 3.3 K/cumm NITHIN WRIGHT Comment:Testing performed by : [facility], [address] [place] [phone] Monocyte abs 0.8 0.2 - 0.8 K/cumm NITHIN WRIGHT Comment:Testing performed by : [facility], [address] [place] [phone] Eosinophil abs 0.2 0.0 - 0.5 K/cumm CERNER BJH Comment:Testing performed by : [facility], [address] [place] [phone] Basophil abs 0.0 0.0 - 0.1 K/cumm CERNER [facility] Comment:Testing performed by : [facility], [address] [place] [phone] Neutrophil pct 55.7 % CERNER BJ Comment: Interpretive Data Percent cell count reference ranges are not reported, since discordance with absolute values may lead to misinterpretation of CBC data. Current Interpretive Data was last revised on 2017. Testing performed by: [facility], [address] [place] [phone] Lymphocyte pct 33.6 % CERNER BJ Comment: Interpretive Data Percent cell count reference ranges are not reported, since discordance with absolute values may lead to misinterpretation of CBC data. Current Interpretive Data was last revised on 2017. Testing performed by: [facility], [address] [place] [phone] Monocyte pct 8.8 % CERNER BJ Comment: Interpretive Data Percent cell count reference ranges are not reported, since discordance with absolute values may lead to misinterpretation of CBC data. Current Interpretive Data was last revised on 2017. Testing performed by: [facility], [address] [place] [phone] Eosinophil pct 1.7 % CERNER BJ Comment: Interpretive Data Percent cell count reference ranges are not reported, since discordance with absolute values may lead to misinterpretation of CBC data. Current Interpretive Data was last revised on 2017. Testing performed by: [facility], [address] [place] [phone] Basophil pct 0.2 % CERNER BJ Comment: Interpretive Data Percent cell count reference ranges are not reported, since discordance with absolute values may lead to misinterpretation of CBC data. Current Interpretive Data was last revised on 2017. Testing performed by: [facility], [address] [place] [phone] Blood 07/28/2024 9:28 AM AIRCRAFT ENGINE MECHANIC SUPERVISOR 07/28/2024 9:35 AM AIRCRAFT ENGINE MECHANIC SUPERVISOR Herson Adkins MD LAB BLOOD ORDER EMILY Final Result Performing Organization Address [facility] Co de Phone Number NITHIN [facility] Noemi [facility] Department [place] [address] * (ABNORMAL) Immunoglobulin free light chains (07/28/2024 9:28 AM AIRCRAFT ENGINE MECHANIC SUPERVISOR) [place]/Lambda ratio BJ 0.79 0.26 - 1.65 Comment: Interpretive Data The Binding Site FreeLite assay procedure was used. Results from different manufacturers or methods may not be comparable. Serial testing should be performed using the same methods and instrumentation. Current Interpretive Data was last revised on 2023. [place] free light chain BJ 0.42 0.33 - 1.94 mg/dL [facility] Comment: Interpretive Data The Binding Site FreeLite assay procedure was used. Results from different manufacturers or methods may not be comparable. Serial testing should be performed using the same methods and instrumentation. Current Interpretive Data was last revised on 2023. Lambda free light chain BJ 0.53(L) 0.57 - 2.63 mg/dL [facility] Comment: Interpretive Data The Binding Site FreeLite assay procedure was used. Results from different manufacturers or methods may not be comparable. Serial testing should be performed using the same methods and instrumentation. Current Interpretive Data was last revised on 2023. Blood 07/28/2024 9:28 AM AIRCRAFT ENGINE MECHANIC SUPERVISOR 07/28/2024 10:49 AM AIRCRAFT ENGINE MECHANIC SUPERVISOR Herson Adkins MD LAB BLOOD ORDER EMILY Final Result NITHIN [facility] Department [place] [address] * CBC with auto differential (07/28/2024 9:28 AM AIRCRAFT ENGINE MECHANIC SUPERVISOR) WBC 9.3 3.8 - 9.9 K/cumm Comment:Testing performed by : [facility], [address] [place] [address] Hgb 14.5 11.9 - 15.5 g/dL CERNER BJ Comment:Testing performed by : [facility], [address] [place], [place] [phone] Hct 42.3 35.6 - 45.5 % CERNER BJ Comment:Testing performed by : [facility], [address] [place], [place] [phone] Plt 199 150 - 400 K/cumm CERNER BJ Comment:Testing performed by : [facility], [address] [place], [place] [phone] MPV 8.1 6.8 - 10.4 fL CERNER BJ Comment:Testing performed by : [facility], [address] [place], [place] [phone] RBC 4.44 3.90 - 5.20 M/cumm CERNER BJ Comment:Testing performed by : [facility], [address] [place] [address] MCV 95.1 81.3 - 96.4 fL CERNER BJ Comment:Testing performed by : [facility], [address] [place], [place] [phone] MCH 32.6 27.1 - 33.3 pg CERNER BJ Comment:Testing performed by : [facility], [address] [place] [address] MCHC 34.3 32.3 - 35.7 g/dL CERNER BJ Comment:Testing performed by : [facility], [address] [place] [address] RDW CV 13.7 11.1 - 14.9 % CERNER BJ Comment:Testing performed by : [facility], [address] [place] [address] NRBC abs 0.00 0.00 - 0.01 K/cumm CERNER BJ Comment:Testing performed by : [facility], [address] [place] [address] [place] [phone] Blood 07/28/2024 9:28 AM AIRCRAFT ENGINE MECHANIC SUPERVISOR 07/28/2024 9:35 AM AIRCRAFT ENGINE MECHANIC SUPERVISOR Herson Adkins MD LAB BLOOD ORDER EMILY Final Result Performing Organization Address [facility] Co de Phone Number [facility] Department [place] [address] * (ABNORMAL) Uric acid (07/28/2024 9:28 AM AIRCRAFT ENGINE MECHANIC SUPERVISOR) Pathologist [facility] Uric acid 7.2(H) 2.5 - 7.0 mg/dL Blood 07/28/2024 9:28 AM AIRCRAFT ENGINE MECHANIC SUPERVISOR 07/28/2024 9:44 AM AIRCRAFT ENGINE MECHANIC SUPERVISOR Herson Adkins MD LAB BLOOD ORDER EMILY Final Result Performing Organization Address [facility] de Phone Number [facility] Department [place] [address] * (ABNORMAL) Protein electrophoresis with reflex, serum with interpretation (07/28/2024 9:28 AM AIRCRAFT ENGINE MECHANIC SUPERVISOR) [facility] Protein, sr 6.5 6.2 - 8.2 g/dL Albumin 4.2 3.2 - 5.0 g/dL [facility] Alpha-1 globulin 0.3 0.2 - 0.4 g/dL [facility] Alpha-2 globulin 0.8 0.5 - 1.0 g/dL [facility] Beta-1 globulin 0.4 0.3 - 0.6 g/dL [facility] Beta-2 globulin 0.4 0.2 - 0.6 g/dL [facility] Gamma globulin 0.4(L) 0.5 - 1.7 g/dL [facility] SPEP interp Please see comment [facility] Comment: No apparent monoclonal peak Decreased gamma globulins Electrophoretic pattern appears different from previous sample 05/27/24 See immunotyping for further information Reviewed and signed by Clay Roman MD, PhD 07/29/2024 Blood 07/28/2024 9:28 AM AIRCRAFT ENGINE MECHANIC SUPERVISOR 07/28/2024 10:49 AM AIRCRAFT ENGINE MECHANIC SUPERVISOR Herson Adkins MD LAB BLOOD ORDER EMILY Final Result Performing Organization Address [facility] de Phone Number [facility] [place] [address] * Lactate dehydrogenase (LD) (07/28/2024 9:28 AM AIRCRAFT ENGINE MECHANIC SUPERVISOR) Lactate dehydrogenase (LDH) 211 100 - 250 Units/L Blood 07/28/2024 9:28 AM AIRCRAFT ENGINE MECHANIC SUPERVISOR 07/28/2024 9:44 AM AIRCRAFT ENGINE MECHANIC SUPERVISOR Herson Adkins MD LAB BLOOD ORDER EMILY Final Result Performing Organization Address [facility] de Phone Number [facility] Department [place] [address] * (ABNORMAL) IgA (07/28/2024 9:28 AM AIRCRAFT ENGINE MECHANIC SUPERVISOR) Immunoglobulin A <50(L) 70 - 400 mg/dL Blood 07/28/2024 9:28 AM AIRCRAFT ENGINE MECHANIC SUPERVISOR 07/28/2024 10:07 AM AIRCRAFT ENGINE MECHANIC SUPERVISOR Herson Adkins MD LAB BLOOD ORDER EMILY Final Result Performing Organization Address [facility] [place] [address] * (ABNORMAL) IgM (07/28/2024 9:28 AM AIRCRAFT ENGINE MECHANIC SUPERVISOR) Immunoglobulin M 25(L) 40 - 230 mg/dL Blood 07/28/2024 9:28 AM AIRCRAFT ENGINE MECHANIC SUPERVISOR 07/28/2024 10:07 AM AIRCRAFT ENGINE MECHANIC SUPERVISOR Herson Adkins MD LAB BLOOD ORDER EMILY Final Result Performing Organization Address [facility]/ZIP Co de Phone Number [facility] Noemi [facility] Department [place] [address] * (ABNORMAL) IgG (07/28/2024 9:28 AM AIRCRAFT ENGINE MECHANIC SUPERVISOR) [facility] Immunoglobulin G 508(L) 700 - 1,600 mg/dL Blood 07/28/2024 9:28 AM AIRCRAFT ENGINE MECHANIC SUPERVISOR 07/28/2024 10:07 AM AIRCRAFT ENGINE MECHANIC SUPERVISOR Herson Adkins MD LAB BLOOD ORDER EMILY Final Result Performing Organization Address [facility] de Phone Number NITHIN [facility] Noemi [facility] Department [place] [address] * (ABNORMAL) Comprehensive metabolic panel (07/28/2024 9:28 AM AIRCRAFT ENGINE MECHANIC SUPERVISOR) [facility] Sodium 146(H) 135 - 145 mmol/L Potassium, pl 3.1(L) 3.3 - 4.9 mmol/L [facility] Chloride 107 97 - 110 mmol/L [facility] CO2 32 22 - 32 mmol/L [facility] Anion gap 7 2 - 15 mmol/L [facility] BUN 14 6 - 25 mg/dL [facility] Creatinine 1.24(H) 0.60 - 1.10 mg/dL [facility] Glucose 111 70 - 199 mg/dL [facility] Comment: Interpretive Data Fasting glucose >/= 126 mg/dl is diagnostic for diabetes. Fasting is defined as no caloric intake for at least 8 hours. Fasting glucose between 100 mg/dl to 125 mg/dl is diagnostic of prediabetes. In a patient with classic symptoms of hyperglycemia or hyperglycemic crisis, a random glucose >/= 200 mg/dl is diagnostic for diabetes. In the absence of unequivocal hyperglycemia, results should be confirmed by repeat testing. The classification and Diagnosis of Diabetes Diabetes Care 2021; 46: S19-S40. Current interpretive data was last revised 2022. Calcium 9.7 8.5 - 10.3 mg/dL [facility] Bilirubin, total 0.3 0.1 - 1.2 mg/dL [facility] Protein, pl 7.0 6.5 - 8.5 g/dL [facility] Albumin 4.4 3.5 - 5.0 g/dL [facility] Alk phos 68 40 - 130 Units/L [facility] ALT 39 7 - 45 Units/L [facility] AST 25 10 - 45 Units/L [facility] Blood 07/28/2024 9:28 AM AIRCRAFT ENGINE MECHANIC SUPERVISOR 07/28/2024 9:44 AM AIRCRAFT ENGINE MECHANIC SUPERVISOR us Herson Adkins MD LAB BLOOD ORDER EMILY Final Result [facility] One [facility] Department [place] [address] * Protein / creatinine ratio, urine, random (07/08/2024 9:50 PM AIRCRAFT ENGINE MECHANIC SUPERVISOR) [facility] Protein, ur, quant 17.3 mg/dL Comment: Interpretive Data No reference range established. Current interpretive data was last revised 2018. Creatinine Ur 162.5 mg/dL [facility] Comment: Interpretive Data No reference range established. Current interpretive data was last revised 2018. Protein/creatinin e ratio 106.5 0.0 - 180.0 mg/g CR [facility] Urine 07/08/2024 9:50 PM AIRCRAFT ENGINE MECHANIC SUPERVISOR 07/08/2024 9:50 PM AIRCRAFT ENGINE MECHANIC SUPERVISOR Narrative [facility] - 07/08/2024 11:26 PM AIRCRAFT ENGINE MECHANIC SUPERVISOR Fax results to Dr Vinay Baer [phone] us Vinay Baer MD LAB URINE ORDERABLES Final R esult [facility] [address] Department [place] [address] * (ABNORMAL) eGFR (07/07/2024 12:39 PM AIRCRAFT ENGINE MECHANIC SUPERVISOR) [facility] eGFR 39(L) >=60 mL/min/1. 73 m2 Comment: Interpretive Data Reference Interval Normal >/= 90 mL/min/1.73m2 Mildly decreased* 60 - 89 mL/min/1.73m2 Mildly to moderately decreased 45 - 59 mL/min/1.73m2 Moderately to severely decreased 30 - 44 mL/min/1.73m2 Severely decreased 15 - 29 mL/min/1.73m2 Kidney Failure < 15 mL/min/1.73m2 *Relative to young adult level Estimated glomerular filtration rate is determined by the 2020 CKD-EPI equation recommended by the National Kidney Foundation (A Unifying Approach to GFR Estimation: Recommendations of the NKF-ASK Task Force on Reassessing the Inclusion of Race in Diagnosing Kidney Disease, JASN 2020). The CKD-EPI equation should not be used for patients with unstable renal function and has not been validated in children and those over 70. Current interpretive data was last reviewed 2021. Blood 07/07/2024 12:3 9 PM AIRCRAFT ENGINE MECHANIC SUPERVISOR 07/07/2024 11:15 PM AIRCRAFT ENGINE MECHANIC SUPERVISOR us Vinay Baer MD LAB BLOOD ORDERABLES Final R esult [facility] [address] Department [place] [address] * (ABNORMAL) CBC without differential (07/07/2024 12:39 PM AIRCRAFT ENGINE MECHANIC SUPERVISOR) WBC 10.7(H) 3.8 - 9.9 K/cumm Hgb 13.8 11.9 - 15.5 g/dL [facility] Hct 43.7 35.6 - 45.5 % [facility] Plt 237 150 - 400 K/cumm [facility] MPV 10.4 9.1 - 12.3 fL [facility] RBC 4.34 3.90 - 5.20 M/cumm [facility] MCV 100.7(H) 81.3 - 96.4 fL [facility] MCH 31.8 27.1 - 33.3 pg [facility] MCHC 31.6(L) 32.3 - 35.7 g/dL [facility] RDW CV 14.1 11.1 - 14.9 % CERNER CH RDW SD 51.2(H) 35.7 - 48.1 fL [facility] NRBC abs 0.00 0.00 - 0.01 K/cumm CERNER CH Blood Venous blood specimen / Unknown 07/07/2024 12:39 PM AIRCRAFT ENGINE MECHANIC SUPERVISOR 07/07/2024 10:50 PM AIRCRAFT ENGINE MECHANIC SUPERVISOR Narrative CERNER [facility] - 07/07/2024 11:25 PM AIRCRAFT ENGINE MECHANIC SUPERVISOR Fax results to Dr Vinay Baer [phone] Vinay Baer MD LAB BLOOD ORDERABLES Final R esult Performing Organization Address [facility] Co de Phone Number [facility] [address] Department [employer] [place] [address] * (ABNORMAL) PTH (07/07/2024 12:39 PM AIRCRAFT ENGINE MECHANIC SUPERVISOR) Pathologist [facility] PTH 71(H) 15 - 65 pg/mL Blood Venous blood specimen / Unknown 07/07/2024 12:39 PM AIRCRAFT ENGINE MECHANIC SUPERVISOR 07/07/2024 10:50 PM AIRCRAFT ENGINE MECHANIC SUPERVISOR Narrative [facility] - 07/07/2024 11:44 PM AIRCRAFT ENGINE MECHANIC SUPERVISOR Fax results to Dr Vinay Baer [phone] Vinay Baer MD LAB BLOOD ORDERABLES Final [facility] Performing Organization Address [facility] de Phone Number [facility] [address] [place] [address] * (ABNORMAL) Renal function panel (07/07/2024 12:39 PM AIRCRAFT ENGINE MECHANIC SUPERVISOR) Sodium 141 135 - 145 mmol/L Potassium, pl 3.8 3.3 - 4.9 mmol/L CERNER Chloride 103 97 - 110 mmol/L [facility] CO2 24 22 - 32 mmol/L [facility] Anion gap 14 2 - 15 mmol/L [facility] BUN 17 6 - 25 mg/dL [facility] Creatinine 1.48(H) 0.60 - 1.10 mg/dL [facility] Glucose 92 70 - 199 mg/dL [facility] Comment: Interpretive Data Fasting glucose >/= 126 mg/dl is diagnostic for diabetes. Fasting is defined as no caloric intake for at least 8 hours. Fasting glucose between 100 mg/dl to 125 mg/dl is diagnostic of prediabetes. In a patient with classic symptoms of hyperglycemia or hyperglycemic crisis, a random glucose >/= 200 mg/dl is diagnostic for diabetes. In the absence of unequivocal hyperglycemia, results should be confirmed by repeat testing. The classification and Diagnosis of Diabetes Diabetes Care 2021; 46: S19-S40. Current interpretive data was last revised 2022. Calcium 9.9 8.5 - 10.3 mg/dL [facility] Phosphorus, pl 3.7 2.3 - 4.5 mg/dL [facility] Albumin 4.6 3.5 - 5.0 g/dL [facility] Blood Venous blood specimen / Unknown 07/07/2024 12:39 PM AIRCRAFT ENGINE MECHANIC SUPERVISOR 07/07/2024 10:50 PM AIRCRAFT ENGINE MECHANIC SUPERVISOR Narrative [facility] - 07/07/2024 11:48 PM AIRCRAFT ENGINE MECHANIC SUPERVISOR Fax results to Dr Vinay Baer [phone] Vinay Baer MD LAB BLOOD ORDERABLES Final R esult NITHIN [address] Department [place] [address] * (ABNORMAL) eGFR (06/30/2024 8:40 AM AIRCRAFT ENGINE MECHANIC SUPERVISOR) eGFR 45(L) >=60 mL/min/1. 73 m2 Comment: Interpretive Data Reference Interval Normal >/= 90 mL/min/1.73m2 Mildly decreased* 60 - 89 mL/min/1.73m2 Mildly to moderately decreased 45 - 59 mL/min/1.73m2 Moderately to severely decreased 30 - 44 mL/min/1.73m2 Severely decreased 15 - 29 mL/min/1.73m2 Kidney Failure < 15 mL/min/1.73m2 *Relative to young adult level Estimated glomerular filtration rate is determined by the 2020 CKD-EPI equation recommended by the National Kidney Foundation (A Unifying Approach to GFR Estimation: Recommendations of the NKF-ASK Task Force on Reassessing the Inclusion of Race in Diagnosing Kidney Disease, JASN 2020). The CKD-EPI equation should not be used for patients with unstable renal function and has not been validated in children and those over 70. Current interpretive data was last reviewed 2021. Blood 06/30/2024 8:40 AM AIRCRAFT ENGINE MECHANIC SUPERVISOR 06/30/2024 8:56 AM AIRCRAFT ENGINE MECHANIC SUPERVISOR us Herson Adkins MD LAB BLOOD ORDER EMILY Final Result NITHIN [facility] Department [place] [address] * (ABNORMAL) Differential, auto (06/30/2024 8:40 AM AIRCRAFT ENGINE MECHANIC SUPERVISOR) Neutrophil abs 4.7 1.5 - 6.5 K/cumm Comment:Testing performed by : [facility], [address] [place] [phone] Lymphocyte abs 4.8(H) 0.8 - 3.3 K/cumm CERNER [facility] Comment:Testing performed by : [facility], [address] [place] [phone] Monocyte abs 0.9(H) 0.2 - 0.8 K/cumm CERNER BJ Comment:Testing performed by : [facility], [address] [place] [phone] Eosinophil abs 0.2 0.0 - 0.5 K/cumm CERHERBIE BJ Comment:Testing performed by : [facility], [address] [place] [phone] Basophil abs 0.0 0.0 - 0.1 K/cumm CERNER BJ Comment:Testing performed by : [facility], [address] [place] [phone] Neutrophil pct 44.6 % CERNER BJ Comment: Interpretive Data Percent cell count reference ranges are not reported, since discordance with absolute values may lead to misinterpretation of CBC data. Current Interpretive Data was last revised on 2017. Testing performed by: [facility], [address] [place] [phone] Lymphocyte pct 45.5 % CERHERBIE [facility] Comment: Interpretive Data Percent cell count reference ranges are not reported, since discordance with absolute values may lead to misinterpretation of CBC data. Current Interpretive Data was last revised on 2017. Testing performed by: [facility], [address] [place] [phone] Monocyte pct 8.1 % CERHERBIE WRIGHT Comment: Interpretive Data Percent cell count reference ranges are not reported, since discordance with absolute values may lead to misinterpretation of CBC data. Current Interpretive Data was last revised on 2017. Testing performed by: [facility], [address] [place] [phone] Eosinophil pct 1.6 % CERHERBIE [facility] Comment: Interpretive Data Percent cell count reference ranges are not reported, since discordance with absolute values may lead to misinterpretation of CBC data. Current Interpretive Data was last revised on 2017. Testing performed by: [facility], [address] [place] [phone] Basophil pct 0.2 % CERHERBIE [facility] Comment: Interpretive Data Percent cell count reference ranges are not reported, since discordance with absolute values may lead to misinterpretation of CBC data. Current Interpretive Data was last revised on 2017. Testing performed by: [facility], [address] [place] [phone] Blood 06/30/2024 8:40 AM AIRCRAFT ENGINE MECHANIC SUPERVISOR 06/30/2024 8:55 AM AIRCRAFT ENGINE MECHANIC SUPERVISOR Herson Adkins MD LAB BLOOD ORDER EMILY Final Result [facility] Department [place] [address] * (ABNORMAL) CBC with auto differential (06/30/2024 8:40 AM AIRCRAFT ENGINE MECHANIC SUPERVISOR) WBC 10.6(H) 3.8 - 9.9 K/cumm Comment:Testing performed by : [facility], [address] [place] [address] Hgb 13.7 11.9 - 15.5 g/dL CERNER BJ Comment:Testing performed by : [facility], [address] [place] [address] Hct 40.9 35.6 - 45.5 % CERNER BJ Comment:Testing performed by : [facility], [address] [place], [place] [phone] Plt 246 150 - 400 K/cumm CERNER BJ Comment:Testing performed by : [facility], [address] [place] [address] MPV 7.7 6.8 - 10.4 fL CERNER BJ Comment:Testing performed by : [facility], [address] [place], [place] [phone] RBC 4.21 3.90 - 5.20 M/cumm CERNER BJ Comment:Testing performed by : [facility], [address] [place], [place] [phone] MCV 97.0(H) 81.3 - 96.4 fL CERNER BJ Comment:Testing performed by : [facility], [address] [place] [address] MCH 32.5 27.1 - 33.3 pg CERNER BJ Comment:Testing performed by : [facility], [address] [place] [address] MCHC 33.5 32.3 - 35.7 g/dL CERNER BJ Comment:Testing performed by : [facility], [address] [place] [address] RDW CV 14.0 11.1 - 14.9 % CERNER BJ Comment:Testing performed by : [facility], [address] [place] [address] NRBC abs 0.00 0.00 - 0.01 K/cumm CERNER BJ Comment:Testing performed by : [facility], [address] [place] [address] Blood 06/30/2024 8:40 AM AIRCRAFT ENGINE MECHANIC SUPERVISOR 06/30/2024 8:55 AM AIRCRAFT ENGINE MECHANIC SUPERVISOR Herson Adkins MD LAB BLOOD ORDER EMILY Final Result Performing Organization Address City/[facility]/ZIP Co de Phone Number [facility] Department [place] [address] * Uric acid (06/30/2024 8:40 AM AIRCRAFT ENGINE MECHANIC SUPERVISOR) Pathologist [facility] Uric acid 6.8 2.5 - 7.0 mg/dL Blood 06/30/2024 8:40 AM AIRCRAFT ENGINE MECHANIC SUPERVISOR 06/30/2024 8:56 AM AIRCRAFT ENGINE MECHANIC SUPERVISOR Herson Adkins MD LAB BLOOD ORDER EMILY Final Result Performing Organization Address [facility] de Phone Number [facility] [place] [address] * (ABNORMAL) Comprehensive metabolic panel (06/30/2024 8:40 AM AIRCRAFT ENGINE MECHANIC SUPERVISOR) Pathologist [facility] Sodium 149(H) 135 - 145 mmol/L Potassium, pl 4.1 3.3 - 4.9 mmol/L [facility] Chloride 110 97 - 110 mmol/L [facility] CO2 29 22 - 32 mmol/L [facility] Anion gap 10 2 - 15 mmol/L [facility] BUN 19 6 - 25 mg/dL [facility] Creatinine 1.31(H) 0.60 - 1.10 mg/dL [facility] Glucose 96 70 - 199 mg/dL [facility] Comment: Interpretive Data Fasting glucose >/= 126 mg/dl is diagnostic for diabetes. Fasting is defined as no caloric intake for at least 8 hours. Fasting glucose between 100 mg/dl to 125 mg/dl is diagnostic of prediabetes. In a patient with classic symptoms of hyperglycemia or hyperglycemic crisis, a random glucose >/= 200 mg/dl is diagnostic for diabetes. In the absence of unequivocal hyperglycemia, results should be confirmed by repeat testing. The classification and Diagnosis of Diabetes Diabetes Care 2021; 46: S19-S40. Current interpretive data was last revised 2022. Calcium 9.8 8.5 - 10.3 mg/dL [facility] Bilirubin, total 0.3 0.1 - 1.2 mg/dL [facility] Protein, pl 7.0 6.5 - 8.5 g/dL [facility] Albumin 4.2 3.5 - 5.0 g/dL [facility] Alk phos 71 40 - 130 Units/L [facility] ALT 67(H) 7 - 45 Units/L [facility] AST 35 10 - 45 Units/L [facility] Blood 06/30/2024 8:40 AM AIRCRAFT ENGINE MECHANIC SUPERVISOR 06/30/2024 8:56 AM AIRCRAFT ENGINE MECHANIC SUPERVISOR us Herson Adkins MD LAB BLOOD ORDER EMILY Final Result [facility] Department [place] [address] * Dexa Axial Skeleton Bone Density 1 or 2 Site (09/17/2023 9:31 AM CDT) Anatomical Region Laterality Modality Body N/A Radiographic Matilde ging Narrative 09/17/2023 10:24 AM CDT Patient Name: Veronica Escobar Date of : 1960 Date of scan: 09/17/2023 Bone mineral density was performed on a Hologic Discovery Densitometer. Based on machine cross-calibration and precision studies the least significant changes of this densitometer is 0.024 g/cm2 at the spine, 0.020 g/cm2 at the total proximal femur, and 0.014g/cm2 at the forearm. HISTORY: This is a 62 y.o. postmenopausal female with a history of bone marrow transplant and osteoporosis. She reports that she has never smoked. She has never used smokeless tobacco. Currently on treatment with denosumab (Xgeva) and diuretics, previously treated with zoledronic acid (Reclast), and current complaint of back pain. INDICATIONS: Menopause status, treatment monitoring, history of prior right wrist fracture, and history of osteoporosis. FINDINGS: BONE MINERAL DENSITY OF THE LUMBAR SPINE Bone Mineral Density (BMD) of the lumbar spine was measured from L1-L4 and the average density was calculated to be 0.742 gm/cm2. This corresponds to a T-score (standard deviations from the mean of young adults) of -2.8. When compared to the previous study of 04/24/2022 there has been a -0.020 gm/cm (-2.6%) decrease in bone density that is considered significant. BONE MINERAL DENSITY OF THE PROXIMAL FEMUR Bone Mineral Density (BMD) of the left hip total was found to be 0.736 gm/cm2. This corresponds to a T-score standard deviations from the mean of young adults of -1.7. Femoral neck is 0.670 gm/cm2 with a T-score (standard deviations from the mean of young adults) of -1.6. When compared to the previous study of 04/24/2022 there has been no significant changes in bone density. BONE MINERAL DENSITY OF THE FOREARM Bone Mineral density (BMD) of the left proximal 1/3 of the radius measures 0.537 gm/cm2. This corresponds to a T-score (standard deviations from the mean of young adults) of -2.6. When compared to the previous study of 04/24/2022 there has been no significant changes in bone density. A forearm bone density study was performed in addition to the routine study because of history of hypercalcemia. SUMMARY: Bone mineral density shows evidence of osteoporosis and marked increase risk of fracture. There has been a significant decrease in bone density since previous measurement. ADDITIONAL COMMENTS: Postmenopausal Women and Men Over 50: Diagnostic criteria: Osteoporosis: BMD at or below -2.5 T-score; Osteopenia (low bone mass): BMD between -1.0 and -2.5 T-score. If the patient has a history of a fragility fracture, a fracture that occurred with trauma equivalent to a fall from a standing position or less, then the diagnosis is osteoporosis regardless of bone density. The history and data sections of the bone mineral density scan were prepared by Netta Hernandez)(eKnn)() CBDT who is accredited by the International Society of Clinical Densitometry. The overall patient assessment and scan interpretation were performed by Ro Cole MD who is certified by the International Society of Clinical Densitometry. [id number] us Sheridan Veliz MD IMG DXA PROCEDURES Final Result from Last 3 Months or Most Recently Relevant to Health Maintenance Insurance [employer]IC [employer] [facility] [employer] [facility] CHOICE PLUS [facility] [employer] Advance Directives For more information, please contact: [phone] * Full Code (Latest Code Status on File) Date Activated Date Inactivated Comments 01/18/2021 10:42 AM 01/18/2021 4:04 PM * Full Code Date Activated Date Inactivated Comments 01/18/2021 10:12 AM 01/18/2021 10:42 AM Care Teams Sieve Grader Tender Relationship Specialty Start Date End Date Gwen Lui PA [facility] [place] [address] PCP - General 01/18/21 Herson Adkins MD Medical Oncologist/Microsoft Bi Developer Medical Oncology 01/11/21
--- OUTSIDE RECORDS SUMMARY | 2024-08-26 14:31 | XMS_ITS | Encounter Summary ---
Author Organization [facility] Address [address] [place] [address] Phone Care Team Providers Care Baseball Player Name Role Phone Bettye Hall MD Primary Care Provider [phone] Angelito Sibley MD Unavailable [phone] Herson Adkins MD Unavailable Gwen Lui Primary Care Provider + Encounter Details Date Type Department Care Team (Latest Contact Info) Description 03/02/2020 Orders Only [facility] Scanning, Provider Social History Tobacco Use Types Packs/Day Years Used Date Smoking Tobacco: Never Smokeless Tobacco: Never Alcohol Use Standard Drinks/Week Comments Never 0 (1 standard drink = 0.6 oz pur e alcohol) AUDIT-C Answer Date Recorded Frequency of Alcohol Consumption Never 11/19/2019 Average Number of Drinks Not on file 020 Frequency of Binge Drinking Not on file 10/23 Comments Unknown Sex and Gender Information Value Date Recorded Sex Assigned at Not on file Legal Sex Female 5:16 AM DIRECTOR OF PATIENT SAFETY Gender Identity Female 10/09/2019 10:54 AM CDT Sexual Orientation Not on file documented as of this encounter Plan of Treatment Not on file documented as of this encounter Procedures Procedure Name Priority Date/Time Associated Diagnosis Comments SCAN - LABS 03/02/2020 documented in this encounter Results * SCAN - LABS (03/02/2020) us Provider Scanning Final Result documented in this encounter Visit Diagnoses Not on filedocumented in this encounter Additional Health Concerns Infection Onset Date Last Indicated Resolved Time COVID: Suspected 06/27/2021 06/28/2021 06/28/2021 10:45 AM DIRECTOR OF PATIENT SAFETY COVID: Suspected 06/28/2021 06/28/2021 06/28/2021 3:54 PM DIRECTOR OF PATIENT SAFETY COVID: Suspected 03/13/2023 03/13/2023 03/13/2023 11:00 PM CDT documented as of this encounter Care Teams Baseball Player Relationship Specialty Start Date End Date Bettye Hall MD PCP - General 09/10/16 01/17/21 Gwen Lui PA [address] [place] [id number] PCP - General 01/18/21 Angelito Sibley MD Medical Oncologist/Psychiatric Orderly Medical Oncology 08/19/20 01/10/21 Herson Adkins MD Medical Oncologist/Psychiatric Orderly Medical Oncology 01/11/21 documented as of this encounter
--- OUTSIDE RECORDS SUMMARY | 2024-08-26 14:31 | XMS_ITS | Continuity of Care Document ---
Author Organization [facility] Address [address] [place] [address] [address] [place] [address] Phone Care Team Providers Care Media Sales Representative Name Role Phone Laisha Torres Unavailable Unavailable Procedures Procedure Date Office Consultation Advance Directives Directive Yes / No Effective Date File Name No Information Encounters Encounter Description Practice Location Reason(s) For Visit Diagnoses Date Provider Providers Copied on Encounter Office Consultation [facility], [address], [place], [place], [id number], [place] tel:[phone] [facility] No Information 0-200 [address]. [address] , [address], [place], [address], [place]. tel:[phone] Referring Provider: Bettye Hall [address], [place], [address]. tel:[phone] Family History Family Member Type Diagnosis Age At Onset No Information Payers Payer name Insurance type Covered democrat ID Authoriza tion(s) No Information Social History Type Description Quantity Date Captured Comments Sex Female Smoking Status No Information Chief Complaint And Reason For Visit No Information Reason For Referral Reason For Referral No Information History Of Present Illness Encounter Date Complaint History Of Prese nt Illness No Information Functional Status Date Functional Assessmen t No Information Instructions Date Instruction Additional Infor mation No Information Assessments Type Assessment Date No Information Patient Care Teams Name Effective Dates (start - stop) Status Members No Information
--- OUTSIDE RECORDS SUMMARY | 2024-08-26 14:31 | XMS_ITS | Patient Health Summary ---
Author Organization [facility] Address [address] [place] [address] Care Team Providers Care Associate Automation Engineer Name Role Phone Bettye Hall MD Primary Care Provider [phone] Note from [facility],non-owned Affiliates and Associated Physician Practices is amultiple site organization consisting of ambulatory clinics and hospital sitesin [place], [place], [place] and [place]. This disclosure is being madepursuant to the Care Everywhere program and may not contain all information available regarding this patient. Last updated 18.[facility] Social History Tobacco Use Types Packs/Day Years Used Date Smoking Tobacco: Never Assessed Sex and Gender Information Value Date Recorded Sex Assigned at Not on file Gender Identity Not on file Sexual Orientation Not on file Procedures * CBC W AUTO DIFFERENTIAL(Performed 01/31/2021) Results * (ABNORMAL) CBC WITH DIFFERENTIAL (01/31/2021 11:19 AM CDT) WBC 4.9 4.4 - 10.7 x10E9/L 01/31/2021 3:42 PM CDT [facility] WBC Corrected 01/31/2021 3:42 PM CDT [facility] RBC 3.57(L) 3.80 - 5.20 x10E12/L 01/31/2021 3:42 PM CDT [facility] Hemoglobin 12.2 12.0 - 15.6 gm/dL 01/31/2021 3:42 PM CDT [facility] Hematocrit 36.2 35.9 - 45.5 % 01/31/2021 3:42 PM CDT [facility] MCV 101.4(H) 80.7 - 98.3 fl 01/31/2021 3:42 PM CDT [facility] MCH 34.2(H) 26.7 - 34.0 pg 01/31/2021 3:42 PM CDT [facility] MCHC 33.7 30.8 - 35.9 gm/dL 01/31/2021 3:42 PM CDT [facility] Platelet Count 177 153 - 416 x10E9/L 01/31/2021 3:42 PM CDT [facility] RDW-CV 14.7 12.1 - 14.9 % 01/31/2021 3:42 PM CDT [facility] MPV 10.3 9.4 - 12.9 fl 01/31/2021 3:42 PM T [facility] Neutrophils % 34.5(L) 44.0 - 73.0 % 01/31/2021 3:42 PM [facility] Lymphocytes % 45.5(H) 20.0 - 43.0 % 01/31/2021 3:42 PM CDT [facility] Monocytes % 11.7 5.0 - 13.0 % 01/31/2021 3:42 PM CDT [facility] Eosinophils % 7.5(H) 0.0 - 6.0 % 01/31/2021 3:42 PM CDT [facility] Basophils % 0.4 0.0 - 2.0 % 01/31[facility]2021 [facility] Immature Granulocytes 0.4 0 - 1 % 01/31/2021 3:[facility] Neutrophil Absolute 1.70(L) 2.01 - 7.14 x10E9/L 01/31/2021 3:42 PM CDT [facility] Lymphocytes Absolute 2.25 1.07 - 3.94 x10E9/L 01/31/2021 3:42 PM CDT [facility] Monocytes Absolute 0.58 0.26 - 1.07 x10E9/L 01/31/2021 3:42 PM CDT [facility] Eosinophils Absolute 0.37 0 - 0.47 x10E9/L 01/31/2021 3:42 PM CDT [facility] Basophils Absolute 0.02 0 - 0.08 x10E9/L 01/31/2021 3:42 PM CDT [facility] Immature Granulocytes Absolute 0.02 0.00 - 0.06 x10E9/L 01/31/2021 3:42 PM CDT [facility] nRBC Auto 0 /100 WBC 01/31/2021 3:42 PM CDT [facility] Blood BLOOD SPECIMEN / Unknown Venipuncture / Unknown 01/31/2021 11:19 AM CDT 01/31/2021 3:38 PM CDT Herson Adkins MD LAB - H EMATOLOGY ORDERABLES [facility] [address] [place], [place] [id number] Care Teams Associate Automation Engineer Relationship Specialty Start Date End Date Bettye Hall MD [address] [place] [address] PCP - General 10/04/17
--- OUTSIDE RECORDS SUMMARY | 2024-08-26 14:31 | XMS_ITS | Encounter Summary ---
Author Organization [facility] Address [address] [place] [address] Care Team Providers Care [employer] Principal Name Role Phone Gwen Lui Primary Care Provider [phone] Encounter Details Date Type Department Care Team (Late st Contact Info) Description 09/17/2019 [facility] Patient Accounts [address] [place] [address] [place], [facility] Provider RE:Notice regarding your past due balance Social History Tobacco Use Types Packs/Day Years Used Date Smoking Tobacco: Never Smokeless Tobacco: Never Alcohol Use Standard Drinks/Week Comments No 0 (1 standard drink = 0.6 oz pur e alcohol) AUDIT-C Answer Date Recorded Frequency of Alcohol Consumption Never 05/25/2019 Average Number of Drinks Not on file 019 Frequency of Binge Drinking Not on file 07/2018 PHQ-2 Answer Date Recorded PHQ-2 Score 0 05/25/2019 Comments No Sex and Gender Information Value Date Recorded Sex Assigned at Female 08/04/2024 1:33 PM CATTLE DRIVER Legal Sex Female 4:58 PM CATTLE DRIVER Gender Identity Not on file Sexual Orientation Not on file documented as of this encounter Plan of Treatment Not on file documented as of this encounter Visit Diagnoses Not on filedocumented in this encounter Additional Health Concerns Infection Onset Date Last Indicated Resolved Time COVID-19 Rule Out 11/02/2020 11/02/2020 11/02/2020 10:50 AM CDT COVID-19 Rule Out 11/02/2020 11/02/202011/03/2020 2:27 PM CDT COVID-19 Rule Out 05/24/2021 05/24/2021 05/24/2021 2:21 PM CATTLE DRIVER COVID-19 Rule Out 03/07/2022 03/07/2022 03/08/2022 1:39 PM CDT COVID-19 Rule Out 03/10/2024 03/10/2024 03/10/2024 3:18 PM CDT COVID-19 Rule Out 08/04/2024 08/04/2024 08/04/2024 3:38 PM CATTLE DRIVER Influenza - Seasonal 08/04/2024 08/04/2024 025 12:33 AM CATTLE DRIVER Assessment Noted Time PHQ-9 Depression Total Score: 0 07/15/19 20 11:57 AM CATTLE DRIVER documented as of this encounter Care Teams [employer] Principal Relationship Specialty Start Date End Date Gwen Lui APNP [address] [place] [address] PCP - General NURSE PRACTITIONER 05/25/19 documented as of this encounter
--- OUTSIDE RECORDS SUMMARY | 2024-08-26 14:31 | XMS_ITS | Clinical Summary ---
Author Organization [facility] Address [address] [place] [address] Care Team Providers Care Staffing Rn Name Role Phone Herson Adkins MD Unavailable Gwen Lui Primary Care Provider + Allergies No known active allergies Medications calcium [...] tension dysphonia 10/26/201804/2019 Multiple myeloma 08/17/2015 04/03/2019 Encounters Date Type Department Care Team Description 08/25/2024 3:00 PM DIRECTOR INFORMATICS Infusion [facility] Infusion [address] [address] Multiple myeloma in relapse (HCC) (Primary Dx) 08/25/2024 2:00 PM DIRECTOR INFORMATICS Lab [facility] - Lab Collection [address] [place] [address] 6 [place] [address] Multiple myeloma in relapse (HCC) 08/19/[address] [facility] Marrow Transplant [address] [place] [phone] Luisa Brizuela NP Multiple myeloma in relapse (HCC) (Primary Dx) 08/12/2024 8:50 AM DIRECTOR INFORMATICS E-Visit [facility] Medical Group Virtual Care [address] [place] [phone] Delmy Turcios NP Your Medications 08/12/2024 Patient Self-Triage [facility] [address] [place] [address] Mychart, Generic Provider 07/28/2024 1:30 PM DIRECTOR INFORMATICS Infusion [facility] - Infusion [address] [place] [address] Multiple myeloma, remission status unspecified (HCC) 07/28/2024 11:00 AM DIRECTOR INFORMATICS Infusion [facility] - Infusion [address] [facility] [address] [place] [address] Multiple myeloma in relapse (HCC) (Primary Dx); Multiple myeloma not having achieved remission (HCC); Hypogammaglobulinem ia 07/28/2024 10:00 AM DIRECTOR INFORMATICS Office Visit [facility] Bone [facility]row Transplant [address] [place] [phone] Luisa Brizuela NP Multiple myeloma in relapse (HCC) (Primary Dx); Multiple myeloma, remission status unspecified (HCC) 07/28/2024 9:00 AM DIRECTOR INFORMATICS Clinical Support [facility] [place] - Lab Collection [address] [facility] [address] [place] [address] Multiple myeloma in relapse (HCC); Multiple myeloma, remission status unspecified (HCC) 07/28/[address] [facility] Bone Marrow Transplant [address] [place] [phone] Nioclas PariAngel Luis 07/08/2024 1:45 PM DIRECTOR INFORMATICS Lab [facility] Medical Group Outpatient Lab at [address] [phone] 07/08/2024 12:39 PM DIRECTOR INFORMATICS - 07/08/2024 11:59 PM DIRECTOR INFORMATICS Hospital Encounter [address] [phone] Chronic kidney disease (CKD) stage G3b/A1, moderately decreased glomerular filtration rate (GFR) between 30-44 mL/min/1.73 square meter and albuminuria creatinine ratio less than 30 mg/g (HCC) Discharge Disposition: Discharge to home or self care 07/07/2024 12:39 PM DIRECTOR INFORMATICS - 07/07/2024 11:59 PM DIRECTOR INFORMATICS Hospital Encounter [address] [address] Chronic kidney disease (CKD) stage G3b/A1, moderately decreased glomerular filtration rate (GFR) between 30-44 mL/min/1.73 square meter and albuminuria creatinine ratio less than 30 mg/g (HCC) Discharge Disposition: Discharge to home or self care 07/07/2024 12:30 PM DIRECTOR INFORMATICS Lab [facility] Medical Group Outpatient Lab at [address] [phone] Chronic kidney disease (CKD) stage G3b/A1, moderately decreased glomerular filtration rate (GFR) between 30-44 mL/min/1.73 square meter and albuminuria creatinine ratio less than 30 mg/g (HCC) (Primary Dx) 07/02/[address] [facility] Bone Marrow Transplant [address] [place] [phone] Herson Lawrence MD Multiple myeloma, remission status unspecified (HCC) (Primary Dx) 06/30/2024 9:30 AM DIRECTOR INFORMATICS Infusion [facility] - Infusion [address] [facility] Floor 6 [place] [address] Multiple myeloma in relapse (HCC) (Primary Dx) 06/30/2024 8:30 AM DIRECTOR INFORMATICS Lab [facility] - Lab Collection [address] [facility] [address] [place] [address] Multiple myeloma in relapse (HCC) 06/29/[address] [facility] Oncology [address] [facility] Floor 6 [place] [address] Luisa Brizuela NP from Last 3 Months Immunizations Immunization Administration Dates Next Due Hep [...] ZOSTER LIVE 02/15/2018 ZOSTER Recombinant 07/19/2018,02/16/2018, 018 Surgical History Surgery Date Site/Laterality Comments TUNNELED LINE PLACEMENT <5 YEARS 12/30/2015 N/A BREAST BIOPSY 06/24/2001 - 06/23/2002 OTHER SURGICAL HISTORY 06/24/2004 - 06/23/2005 Thrombosis Medical History Medical History Date Comments Bone fracture Wrist, foot Kidney problem Family History Medical History Relation Name Comments Cancer Brother lung No Known Problems Father No Known Problems Mother No Known Problems Sister Relation Name Status Comments Brother Father Mother Sister Social History Tobacco Use Types Packs/Day Years [...] file Legal Sex Female 5:16 AM DIRECTOR INFORMATICS Gender Identity Female 10/09/2019 10:54 AM CDT Sexual Orientation Not on file Obstetrics History Last Filed Vital Signs Vital Sign Reading Time Taken Comments Blood Pressure 120/79 08/25/2024 3:35 PM DIRECTOR INFORMATICS Pulse 96 08/25/2024 3:35 PM DIRECTOR INFORMATICS Temperature 36.9 C (98.5 F) 08/25/2024 3:35 PM DIRECTOR INFORMATICS Respiratory Rate 18 08/25/2024 3:35 PM DIRECTOR INFORMATICS Oxygen Saturation 96% 08/25/2024 3:35 PM DIRECTOR INFORMATICS Inhaled Oxygen Concentration - - Weight 67.4 kg (148 lb 9.4 oz) 08/25/2024 2:53 P M DIRECTOR INFORMATICS Height 162.6 cm (5' 4 ) 05/26/2024 9:59 AM DIRECTOR INFORMATICS Body Mass Index 25.51 05/26/2024 9:59 AM DIRECTOR INFORMATICS Plan of Treatment Health Maintenance Due Date Last Done Comments Colon Cancer Screening-Colonoscopy 1960 Depression Screening 1960 Hepatitis C Screening 1960 Breast Cancer Screening-Mammogram 01/02/2015 014, 03/03/2012 Covid-19 Vaccine (3 - Pfizer risk series) 03/03/2021 02/03/2021, 01/13/2021 Fall Risk Assessment 01/18/2022 01/18/2021 Well Visit 65+ 10/26/2023 Influenza Vaccine (#1) 2024 3, 03/29/2022, 03/30/2021, Additional history exists Cervical Cancer Screening 09/19/20242023, 09/05/2023, 04/19/2020 Osteoporosis Screening-Bone Density Scan 09/16/2025 09/17/2023, 09/17/2023, 04/24/2022, Additional history exists Pneumococcal vaccine 65+ (3 of 3 - PPSV23, PCV20 or PCV21) 05/04/2026 05/04/2021, 11/05/2016, 09/10/2016 DTaP/Tdap/Td Vaccine (3 - Td or Tdap) 05/25/2029 05/25/2019, 11/26/2016 Zoster Vaccine Completed 07/19/2018, 01/23, 02/15/2018, Additional history exists Hepatitis B Screening Completed 07/02/2019, 019 Procedures Procedure Name Priority Date/Time Associated Diagnosis Comments EGFR STAT 08/25/2024 2:18 PM DIRECTOR INFORMATICS Multiple myeloma in relapse (HCC) DIFFERENTIAL AUTO Routine 08/25/2024 2:1 8 PM DIRECTOR INFORMATICS Multiple myeloma in relapse (HCC) CBC WITH AUTO DIFFERENTIAL Routine 08/25/2024 2:18 PM DIRECTOR INFORMATICS Multiple myeloma in relapse (HCC) COMPREHENSIVE METABOLIC PANEL STAT 08/25/2024 2:18 PM DIRECTOR INFORMATICS Multiple myeloma in relapse (HCC) URIC ACID Routine 08/25/2024 2:18 PM DIRECTOR INFORMATICS Multiple myeloma in relapse (HCC) EGFR STAT 07/28/2024 9:28 AM DIRECTOR INFORMATICS Multiple myeloma in relapse (HCC) DIFFERENTIAL AUTO Routine 07/28/2024 9:2 8 AM DIRECTOR INFORMATICS Multiple myeloma in relapse (HCC) IGA Routine 07/28/2024 9:28 AM DIRECTOR INFORMATICS Multiple myeloma, remission status unspecified (HCC) IGG Routine 07/28/2024 9:28 AM DIRECTOR INFORMATICS Multiple myeloma, remission status unspecified (HCC) IGM Routine 07/28/2024 9:28 AM DIRECTOR INFORMATICS Multiple myeloma, remission status unspecified (HCC) IMMUNOGLOBULIN FREE LIGHT CHAINS Routine 07/28/2024 9:28 AM DIRECTOR INFORMATICS Multiple myeloma, remission status unspecified (HCC) LACTATE DEHYDROGENASE Routine 07/28/2024 9:28 AM DIRECTOR INFORMATICS Multiple myeloma, remission status unspecified (HCC) PROTEIN ELECTROPHORESIS, WITH REFLEX, SERUM Routine 07/28/2024 9:28 AM DIRECTOR INFORMATICS Multiple myeloma, remission status unspecified (HCC) IMMUNOTYPING Routine 07/28/2024 9:28 AM DIRECTOR INFORMATICS Multiple myeloma, remission status unspecified (HCC) CBC WITH AUTO DIFFERENTIAL Routine 07/28/2024 9:28 AM DIRECTOR INFORMATICS Multiple myeloma in relapse (HCC) COMPREHENSIVE METABOLIC PANEL STAT 07/28/2024 9:28 AM DIRECTOR INFORMATICS Multiple myeloma in relapse (HCC) URIC ACID Routine 07/28/2024 9:28 AM DIRECTOR INFORMATICS Multiple myeloma in relapse (HCC) PROTEIN / CREATININE RATIO, URINE, RANDOM Routine 07/08/2024 9:50 PM DIRECTOR INFORMATICS Chronic kidney disease (CKD) stage G3b/A1, moderately decreased glomerular filtration rate (GFR) between 30-44 mL/min/1.73 square meter and albuminuria creatinine ratio less than 30 mg/g (HCC) EGFR Routine 07/07/2024 12:39 PM DIRECTOR INFORMATICS Chronic kidney disease (CKD) stage G3b/A1, moderately decreased glomerular filtration rate (GFR) between 30-44 mL/min/1.73 square meter and albuminuria creatinine ratio less than 30 mg/g (HCC) CBC WITHOUT DIFFERENTIAL Routine 07/07/2024 12:39 PM DIRECTOR INFORMATICS Chronic kidney disease (CKD) stage G3b/A1, moderately decreased glomerular filtration rate (GFR) between 30-44 mL/min/1.73 square meter and albuminuria creatinine ratio less than 30 mg/g (HCC) RENAL FUNCTION PANEL Routine 07/07/2024 12:39 PM DIRECTOR INFORMATICS Chronic kidney disease (CKD) stage G3b/A1, moderately decreased glomerular filtration rate (GFR) between 30-44 mL/min/1.73 square meter and albuminuria creatinine ratio less than 30 mg/g (HCC) PTH Routine 07/07/2024 12:39 PM DIRECTOR INFORMATICS Chronic kidney disease (CKD) stage G3b/A1, moderately decreased glomerular filtration rate (GFR) between 30-44 mL/min/1.73 square meter and albuminuria creatinine ratio less than 30 mg/g (HCC) EGFR STAT 06/30/2024 8:40 AM DIRECTOR INFORMATICS Multiple myeloma in relapse (HCC) DIFFERENTIAL AUTO Routine 06/30/2024 8:4 0 AM DIRECTOR INFORMATICS Multiple myeloma in relapse (HCC) CBC WITH AUTO DIFFERENTIAL Routine 06/30/2024 8:40 AM DIRECTOR INFORMATICS Multiple myeloma in relapse (HCC) COMPREHENSIVE METABOLIC PANEL STAT 06/30/2024 8:40 AM DIRECTOR INFORMATICS Multiple myeloma in relapse (HCC) URIC ACID Routine 06/30/2024 8:40 AM DIRECTOR INFORMATICS Multiple myeloma in relapse (HCC) DEXA AXIAL SKELETON BONE DENSITY 1 OR MORE SITES Schedule Routine, Read Routine (OP Routine) 09/17/2023 9:31 AM CDT Osteoporosis without current pathological fracture, unspecified osteoporosis type from Last 3 Months or Most Recently Relevant to Health Maintenance Results * (ABNORMAL) eGFR (08/25/2024 2:18 PM DIRECTOR INFORMATICS) eGFR 40(L) >=60 mL/min/1. 73 m2 Comment: [...] last reviewed 2021. Blood 08/25/2024 2:18 PM DIRECTOR INFORMATICS 08/25/2024 2:35 PM DIRECTOR INFORMATICS Luisa Brizuela MORTISING MACHINE OPERATOR LAB BLOOD ORDERABLES Mary richy Result [facility] [place] [address] * (ABNORMAL) Differential, auto (08/25/2024 2:18 PM DIRECTOR INFORMATICS) Neutrophil abs 2.9 1.5 - 6.5 K/cumm Comment:Testing performed by : [facility], [address] [place] [phone] Lymphocyte abs 4.5(H) 0.8 - 3.3 K/cumm CERNER [facility] Comment:Testing performed by : [facility], [address] [place] [phone] Monocyte abs 0.8 0.2 - 0.8 K/cumm CERNER BJ Comment:Testing performed by : [facility], [address] [place] [phone] Eosinophil abs 0.1 0.0 - 0.5 K/cumm CERNER BJ Comment:Testing performed by : [facility], [address] [place] [phone] Basophil abs 0.0 0.0 - 0.1 K/cumm CERNER BJ Comment:Testing performed by : [facility], [address] [place] [phone] Neutrophil pct 34.7 % CERNER [facility] Comment: Interpretive Data Percent cell count reference ranges are not reported, since discordance with absolute values may lead to misinterpretation of CBC data. Current Interpretive Data was last revised on 2017. Testing performed by: [facility], [address] [place], [place] [phone] Lymphocyte pct 54.1 % CERHERBIE WRIGHT Comment: Interpretive Data Percent cell count reference ranges are not reported, since discordance with absolute values may lead to misinterpretation of CBC data. Current Interpretive Data was last revised on 2017. Testing performed by: [facility], [address] [place] [phone] Monocyte pct 9.7 % NITHIN WRIGHT Comment: Interpretive Data Percent cell count reference ranges are not reported, since discordance with absolute values may lead to misinterpretation of CBC data. Current Interpretive Data was last revised on 2017. Testing performed by: [facility], [address] [place] [phone] Eosinophil pct 1.3 % NITHIN WRIGHT Comment: Interpretive Data Percent cell count reference ranges are not reported, since discordance with absolute values may lead to misinterpretation of CBC data. Current Interpretive Data was last revised on 2017. Testing performed by: [facility], [address] [place] [phone] Basophil pct 0.2 % NITHIN WRIGHT Comment: Interpretive Data Percent cell count reference ranges are not reported, since discordance with absolute values may lead to misinterpretation of CBC data. Current Interpretive Data was last revised on 2017. Testing performed by: [facility], [address] [place] [phone] Blood 08/25/2024 2:18 PM DIRECTOR INFORMATICS 08/25/2024 2:34 PM DIRECTOR INFORMATICS Luisa Brizuela MORTISING MACHINE OPERATOR LAB BLOOD ORDERABLES Mary l Result NITHIN WRIGHT [facility] [place] [address] * (ABNORMAL) CBC with auto differential (08/25/2024 2:18 PM DIRECTOR INFORMATICS) WBC 8.3 3.8 - 9.9 K/cumm Comment:Testing performed by : [facility], [address] [place], [place] [phone] Hgb 12.9 11.9 - 15.5 g/dL CERNER BJ Comment:Testing performed by : [facility], [address] [place], [place] [phone] Hct 37.8 35.6 - 45.5 % CERNER BJ Comment:Testing performed by : [facility], [address] [place], [place] [phone] Plt 202 150 - 400 K/cumm CERNER BJ Comment:Testing performed by : [facility], [address] [place], [place] [phone] MPV 8.2 6.8 - 10.4 fL CERNER BJ Comment:Testing performed by : [facility], [address] [place], [place] [phone] RBC 3.97 3.90 - 5.20 M/cumm CERNER BJ Comment:Testing performed by : [facility], [address] [place], [place] [phone] MCV 95.5 81.3 - 96.4 fL CERNER BJ Comment:Testing performed by : [facility], [address] [place], [place] [phone] MCH 32.6 27.1 - 33.3 pg CERNER BJ Comment:Testing performed by : [facility], [address] [place], [place] [phone] MCHC 34.2 32.3 - 35.7 g/dL CERNER BJ Comment:Testing performed by : [facility], [address] [place], [place] [phone] RDW CV 16.1(H) 11.1 - 14.9 % CERNER BJ Comment:Testing performed by : [facility], [address] [place], [place] [phone] NRBC abs 0.00 0.00 - 0.01 K/cumm CERNER BJ Comment:Testing performed by : [facility], [address] [place] [address] Blood 08/25/2024 2:18 PM DIRECTOR INFORMATICS 08/25/2024 2:34 PM DIRECTOR INFORMATICS Luisa Brizuela MORTISING MACHINE OPERATOR LAB BLOOD ORDERABLES Mary l Result Performing Organization Address City/[facility]/ZIP Co de Phone Number [facility] [place] [address] * (ABNORMAL) Uric acid (08/25/2024 2:18 PM DIRECTOR INFORMATICS) Pathologist [facility] [place] Uric acid 7.7(H) 2.5 - 7.0 mg/dL Blood 08/25/2024 2:18 PM DIRECTOR INFORMATICS 08/25/2024 2:35 PM DIRECTOR INFORMATICS Luisa Brizuela LAB BLOOD ORDERABLES Mary l Result Performing Organization Address [facility] de Phone Number [facility] [place] [address] * (ABNORMAL) Comprehensive metabolic panel (08/25/2024 2:18 PM DIRECTOR INFORMATICS) [facility] Sodium 147(H) 135 - 145 mmol/L Potassium, pl 3.7 3.3 - 4.9 mmol/L [facility] Chloride 108 97 - 110 mmol/L [facility] CO2 30 22 - 32 mmol/L [facility] Anion gap 9 2 - 15 mmol/L [facility] BUN 17 6 - 25 mg/dL [facility] Creatinine 1.46(H) 0.60 - 1.10 mg/dL [facility] Glucose 89 70 - 199 mg/dL [facility] Comment: Interpretive Data Fasting glucose >/= 126 [...] classification and Diagnosis of Diabetes Diabetes Care 202; 46: S19-S40. Current interpretive data was last revised 2022. Calcium 9.6 8.5 - 10.3 mg/dL [facility] Bilirubin, total 0.3 0.1 - 1.2 mg/dL C[facility] Protein, pl 7.0 6.5 - 8.5 g/dL [facility] Albumin 4.3 3.5 - 5.0 g/dL [facility] Alk phos 59 40 - 130 Units/L CERNER [facility] ALT 29 7 - 45 Units/L [facility] AST 20 10 - 45 Units/L [facility] Blood 08/25/2024 2:18 PM DIRECTOR INFORMATICS 08/25/2024 2:35 PM DIRECTOR INFORMATICS Luisa Brizuela NP LAB BLOOD ORDERABLES Mary l Result Performing Organization Address City/[facility] Co de Phone Number [facility] Department [place] [employer] [place] [address] * Immunotyping, serum with interpretation (07/28/2024 9:28 AM DIRECTOR INFORMATICS) [facility] Immunosubtraction Please see comment Comment: NO PARAPROTEIN DETECTED Reviewed and signed by Clay Roman MD, PhD 07/29/2024 Blood 07/28/2024 9:28 AM DIRECTOR INFORMATICS 07/28/2024 10:49 AM DIRECTOR INFORMATICS Herson Adkins MD LAB BLOOD ORDER EMILY Final Result Performing Organization Address City/[facility] Co de Phone Number [facility] [place] [address] * (ABNORMAL) eGFR (07/28/2024 9:28 AM DIRECTOR INFORMATICS) [facility] eGFR 48(L) >=60 mL/min/1. 73 m2 Comment: [...] last reviewed 2021. Blood 07/28/2024 9:28 AM DIRECTOR INFORMATICS 07/28/2024 9:44 AM DIRECTOR INFORMATICS us Herson Adkins MD LAB BLOOD ORDER EMILY Final Result [facility] [place] [address] * Differential, auto (07/28/2024 9:28 AM DIRECTOR INFORMATICS) Neutrophil abs 5.2 1.5 - 6.5 K/cumm Comment:Testing performed by : [facility], [address] [place] [phone] Lymphocyte abs 3.1 0.8 - 3.3 K/cumm NITHIN [facility] Comment:Testing performed by : [facility], [address] [place], [place] [phone] Monocyte abs 0.8 0.2 - 0.8 K/cumm NITHIN [facility] Comment:Testing performed by : [facility], [address] [place], [place] [phone] Eosinophil abs 0.2 0.0 - 0.5 K/cumm NITHIN [facility] Comment:Testing performed by : [facility], [address] [place] [phone] Basophil abs 0.0 0.0 - 0.1 K/cumm NITHIN [facility] Comment:Testing performed by : [facility], [address] [place] [phone] Neutrophil pct 55.7 % CERNER BJ Comment: Interpretive Data Percent cell count reference ranges are not reported, since discordance with absolute values may lead to misinterpretation of CBC data. Current Interpretive Data was last revised on 2017. Testing performed by: [facility], [address] [place] [phone] Lymphocyte pct 33.6 % CERNER BJ Comment: Interpretive Data Percent cell count reference ranges are not reported, since discordance with absolute values may lead to misinterpretation of CBC data. Current Interpretive Data was last revised on 2017. Testing performed by: [facility], [address] [place] [phone] Monocyte pct 8.8 % CERNER BJ Comment: Interpretive Data Percent cell count reference ranges are not reported, since discordance with absolute values may lead to misinterpretation of CBC data. Current Interpretive Data was last revised on 2017. Testing performed by: [facility], [address] [place] [phone] Eosinophil pct 1.7 % CERNER BJ Comment: Interpretive Data Percent cell count reference ranges are not reported, since discordance with absolute values may lead to misinterpretation of CBC data. Current Interpretive Data was last revised on 2017. Testing performed by: [facility], [address] [place] [phone] Basophil pct 0.2 % CERNER BJ Comment: Interpretive Data Percent cell count reference ranges are not reported, since discordance with absolute values may lead to misinterpretation of CBC data. Current Interpretive Data was last revised on 2017. Testing performed by: [facility], [address] [place] [phone] Blood 07/28/2024 9:28 AM DIRECTOR INFORMATICS 07/28/2024 9:35 AM DIRECTOR INFORMATICS Herson Adkins MD LAB BLOOD ORDER EMILY Final Result NITHIN WRIGHT [facility] [place] [address] * (ABNORMAL) Immunoglobulin free light chains (07/28/2024 9:28 AM DIRECTOR INFORMATICS) [facility] [place]/Lambda ratio BJ 0.79 0.26 - 1.65 Comment: Interpretive Data The Binding Site FreeLite assay procedure was used. Results from different manufacturers or methods may not be comparable. Serial testing should be performed using the same methods and instrumentation. Current Interpretive Data was last revised on 2023. [place] free light chain BJ 0.42 0.33 - 1.94 mg/dL [facility] Comment: Interpretive Data The Binding Site FreeLite assay procedure was used. Results from different manufacturers or methods may not be comparable. Serial testing should be performed using the same methods and instrumentation. Current Interpretive Data was last revised on 2023. Lambda free light chain [facility] 0.53(L) 0.57 - 2.63 mg/dL [facility] Comment: Interpretive Data The Binding Site FreeLite assay procedure was used. Results from different manufacturers or methods may not be comparable. Serial testing should be performed using the same methods and instrumentation. Current Interpretive Data was last revised on 2023. Blood 07/28/2024 9:28 AM DIRECTOR INFORMATICS 07/28/2024 10:49 AM DIRECTOR INFORMATICS Herson Adkins MD LAB BLOOD ORDER EMILY Final Result NITHIN WRIGHT Noemi [facility] [place] [address] * CBC with auto differential (07/28/2024 9:28 AM DIRECTOR INFORMATICS) [facility] WBC 9.3 3.8 - 9.9 K/cumm Comment:Testing performed by : [facility], [address] [place] [phone] Hgb 14.5 11.9 - 15.5 g/dL [facility] Comment:Testing performed by : [facility] [facility], [address] [place], [place] [id number] Hct 42.3 35.6 - 45.5 % CERNER BJ Comment:Testing performed by : [facility], [address] [place], [place] [id number] Plt 199 150 - 400 K/cumm CERNER BJ Comment:Testing performed by : [facility], [address] [place], [place] [id number] MPV 8.1 6.8 - 10.4 fL CERNER BJ Comment:Testing performed by : [facility], [address] [place], [place] [id number] RBC 4.44 3.90 - 5.20 M/cumm CERNER BJ Comment:Testing performed by : [facility], [address] [place], [place] [id number] MCV 95.1 81.3 - 96.4 fL CERNER BJ Comment:Testing performed by : [facility], [address] [place], [place] [id number] MCH 32.6 27.1 - 33.3 pg CERNER BJ Comment:Testing performed by : [facility], [address] [place] [address] MCHC 34.3 32.3 - 35.7 g/dL CERNER BJ Comment:Testing performed by : [facility], [address] [place] [address] RDW CV 13.7 11.1 - 14.9 % CERNER BJ Comment:Testing performed by : [facility], [address] [place], [place] [id number] NRBC abs 0.00 0.00 - 0.01 K/cumm CERNER BJ Comment:Testing performed by : [facility], [address] [place], [place] [phone] Blood 07/28/2024 9:28 AM DIRECTOR INFORMATICS 07/28/2024 9:35 AM DIRECTOR INFORMATICS Herson Adkins MD LAB BLOOD ORDER EMILY Final Result [facility] [place] [address] * (ABNORMAL) Uric acid (07/28/2024 9:28 AM DIRECTOR INFORMATICS) [facility] Uric acid 7.2(H) 2.5 - 7.0 mg/dL Blood 07/28/2024 9:2 8 AM DIRECTOR INFORMATICS 07/28/2024 9:44 AM DIRECTOR INFORMATICS Herson Adkins MD LAB BLOOD ORDER EMILY Final Result Performing Organization Address [facility] Co de Phone Number [facility] [place] [address] * (ABNORMAL) Protein electrophoresis with reflex, serum with interpretation (07/28/2024 9:28 AM DIRECTOR INFORMATICS) [facility] Protein, sr 6.5 6.2 - 8.2 g/dL Albumin 4.2 3.2 - 5.0 g/dL [facility] Alpha-1 globulin 0.3 0.2 - 0.4 g/dL [facility] Alpha-2 globulin 0.8 0.5 - 1.0 g/dL [facility] Beta-1 globulin 0.4 0.3 - 0.6 g/dL [facility] Beta-2 globulin 0.4 0.2 - 0.6 g/dL [facility] Gamma globulin 0.4(L) 0.5 - 1.7 g/dL [facility] SPEP interp Please see comment [facility] Comment: No apparent monoclonal peak Decreased gamma globulins Electrophoretic pattern appears different from previous sample 05/27/24 See immunotyping for further information Reviewed and signed by Clay Roman MD, PhD 07/29/2024 Blood 07/28/2024 9:28 AM DIRECTOR INFORMATICS 07/28/2024 10:49 AM DIRECTOR INFORMATICS Herson Adkins MD LAB BLOOD ORDER EMILY Final Result Performing Organization Address [facility] Co de Phone Number [facility] [place] [address] * Lactate dehydrogenase (LD) (07/28/2024 9:28 AM DIRECTOR INFORMATICS) Lactate dehydrogenase (LDH) 211 100 - 250 Units/L Blood 07/28/2024 9:28 AM DIRECTOR INFORMATICS 07/28/2024 9:44 AM DIRECTOR INFORMATICS Herson Adkins MD LAB BLOOD ORDER EMILY Final Result Performing Organization Address [facility] de Phone Number [facility] [place] [address] * (ABNORMAL) IgA (07/28/2024 9:28 AM DIRECTOR INFORMATICS) Immunoglobulin A <50(L) 70 - 400 mg/dL Blood 07/28/2024 9:28 AM DIRECTOR INFORMATICS 07/28/2024 10:07 AM DIRECTOR INFORMATICS Herson Adkins MD LAB BLOOD ORDER EMILY Final Result Performing Organization Address [facility] Co de Phone Number [facility] [place] [address] * (ABNORMAL) IgM (07/28/2024 9:28 AM DIRECTOR INFORMATICS) Immunoglobulin M 25(L) 40 - 230 mg/dL Blood 07/28/2024 9:28 AM DIRECTOR INFORMATICS 07/28/2024 10:07 AM DIRECTOR INFORMATICS Herson Adkins MD LAB BLOOD ORDER EMILY Final Result Performing Organization Address [facility] Co de Phone Number [facility] [place] [address] * (ABNORMAL) IgG (07/28/2024 9:28 AM DIRECTOR INFORMATICS) Immunoglobulin G 508(L) 700 - 1,600 mg/dL Blood 07/28/2024 9:28 AM DIRECTOR INFORMATICS 07/28/2024 10:07 AM DIRECTOR INFORMATICS Herson Adkins MD LAB BLOOD ORDER EMILY Final Result [facility] [place] [address] * (ABNORMAL) Comprehensive metabolic panel (07/28/2024 9:28 AM DIRECTOR INFORMATICS) Pathologist [facility] [place] Sodium 146(H) 135 - 145 mmol/L Potassium, pl 3.1(L) 3.3 - 4.9 mmol/L [facility] Chloride 107 97 - 110 mmol/L [facility] CO2 32 22 - 32 mmol/L [facility] Anion gap 7 2 - 15 mmol/L [facility] BUN 14 6 - 25 mg/dL [facility] Creatinine 1.24(H) 0.60 - 1.10 mg/dL [facility] Glucose 111 70 - 199 mg/dL [facility] Comment: Interpretive Data Fasting glucose >/= 126 [...] 2022. Calcium 9.7 8.5 - 10.3 mg/dL [facility] Bilirubin, total 0.3 0.1 - 1.2 mg/dL [facility] Protein, pl 7.0 6.5 - 8.5 g/dL [facility] Albumin 4.4 3.5 - 5.0 g/dL [facility] Alk phos 68 40 - 130 Units/L [facility] ALT 39 7 - 45 Units/L [facility] AST 25 10 - 45 Units/L [facility] Blood 07/28/2024 9:28 AM DIRECTOR INFORMATICS 07/28/2024 9:44 AM DIRECTOR INFORMATICS Herson Adkins MD LAB BLOOD ORDER EMILY Final Result Performing Organization Address [facility] de Phone Number [facility] [place] [address] * Protein / creatinine ratio, urine, random (07/08/2024 9:50 PM DIRECTOR INFORMATICS) Pathologist [facility] [place] Protein, ur, quant 17.3 mg/dL Comment: Interpretive Data No reference range established. Current interpretive data was last revised 2018. Creatinine Ur 162.5 mg/dL [facility] Comment: Interpretive Data No reference range established. Current interpretive data was last revised 2018. Protein/creatinin e ratio 106.5 0.0 - 180.0 mg/g CR [facility] Urine 07/08/2024 9:50 PM DIRECTOR INFORMATICS 07/08/2024 9:50 PM DIRECTOR INFORMATICS Narrative [facility] - 07/08/2024 11:26 PM DIRECTOR INFORMATICS Fax results to Dr Vinay Baer [phone] Vinay Baer MD LAB URINE ORDERABLES Final R esult Performing Organization Address [facility] de Phone Number [facility] [address] [place] [address] * (ABNORMAL) eGFR (07/07/2024 12:39 PM DIRECTOR INFORMATICS) [facility] eGFR 39(L) >=60 mL/min/1. 73 m2 Comment: [...] reviewed 2021. Blood 07/07/2024 12:3 9 PM DIRECTOR INFORMATICS 07/07/2024 11:15 PM DIRECTOR INFORMATICS Vinay Baer MD LAB BLOOD ORDERABLES Final R esult [facility] [address] [place] [address] * (ABNORMAL) CBC without differential (07/07/2024 12:39 PM DIRECTOR INFORMATICS) WBC 10.7(H) 3.8 - 9.9 K/cumm Hgb 13.8 11.9 - 15.5 g/dL CERNER Hct 43.7 35.6 - 45.5 % CERNER Plt 237 150 - 400 K/cumm [facility] MPV 10.4 9.1 - 12.3 fL [facility] RBC 4.34 3.90 - 5.20 M/cumm [facility] MCV 100.7(H) 81.3 - 96.4 fL CERNER MCH 31.8 27.1 - 33.3 pg CERNER MCHC 31.6(L) 32.3 - 35.7 g/dL CERNER CH RDW CV 14.1 11.1 - 14.9 % CERNER CH RDW SD 51.2(H) 35.7 - 48.1 fL CERNER NRBC abs 0.00 0.00 - 0.01 K/cumm CERNER CH Blood Venous blood specimen / Unknown 07/07/2024 12:39 PM DIRECTOR INFORMATICS 07/07/2024 10:50 PM DIRECTOR INFORMATICS Narrative [facility] - 07/07/2024 11:25 PM DIRECTOR INFORMATICS Fax results to Dr Vinay Baer [phone] Vinay Baer MD LAB BLOOD ORDERABLES Final R esult Performing Organization Address [facility] Co de Phone Number [facility] GILLIAM [address] [address] [place] [address] * (ABNORMAL) PTH (07/07/2024 12:39 PM DIRECTOR INFORMATICS) [facility] PTH 71(H) 15 - 65 pg/mL Blood Venous blood specimen / Unknown 07/07/2024 12:39 PM DIRECTOR INFORMATICS 07/07/2024 10:50 PM DIRECTOR INFORMATICS Narrative [facility]ITH[facility] - 07/07/2024 11:44 PM DIRECTOR INFORMATICS Fax results to Dr Vinay Baer [phone] Vinay Baer MD LAB BLOOD ORDERABLES Final R [facility] Performing Organization Address [facility] Co de Phone Number [facility] GILLIAM [address] [address] Department [place] [address] * (ABNORMAL) Renal function panel (07/07/2024 12:39 PM DIRECTOR INFORMATICS) [facility] Sodium 141 135 - 145 mmol/L Potassium, pl 3.8 3.3 - 4.9 mmol/L [facility] Chloride 103 97 - 110 mmol/L [facility] CO2 24 22 - 32 mmol/L [facility] Anion gap 14 2 - 15 mmol/L [facility] BUN 17 6 - 25 mg/dL [facility] Creatinine 1.48(H) 0.60 - 1.10 mg/dL [facility] Glucose 92 70 - 199 mg/dL [facility] Comment: Interpretive Data Fasting glucose >/= 126 [...] 2022. Calcium 9.9 8.5 - 10.3 mg/dL [facility] Phosphorus, pl 3.7 2.3 - 4.5 mg/dL [facility] Albumin 4.6 3.5 - 5.0 g/dL [facility] Blood Venous blood specimen / Unknown 07/07/2024 12:39 PM DIRECTOR INFORMATICS 07/07/2024 10:50 PM DIRECTOR INFORMATICS Narrative [facility] - 07/07/2024 11:48 PM DIRECTOR INFORMATICS Fax results to Dr Vinay Baer [phone] Vinay Baer MD LAB BLOOD ORDERABLES Final R esult [facility] [address] [address] [place] [address] * (ABNORMAL) eGFR (06/30/2024 8:40 AM DIRECTOR INFORMATICS) eGFR 45(L) >=60 mL/min/1. 73 m2 Comment: [...] of Race in Diagnosing Kidney Disease, JASN 202). The CKD-EPI equation should not be used for patients with unstable renal function and has not been validated in children and those over 70. Current interpretive data was last reviewed 2021. Blood 06/30/2024 8:40 AM DIRECTOR INFORMATICS 06/30/2024 8:56 AM DIRECTOR INFORMATICS us Herson Adkins MD LAB BLOOD ORDER EMILY Final Result [facility] [place] [address] * (ABNORMAL) Differential, auto (06/30/2024 8:40 AM DIRECTOR INFORMATICS) Neutrophil abs 4.7 1.5 - 6.5 K/cumm Comment:Testing performed by : [facility], [address] [place] [phone] Lymphocyte abs 4.8(H) 0.8 - 3.3 K/cumm CERNER BJ Comment:Testing performed by : [facility], [address] [place], [place] [id number] Monocyte abs 0.9(H) 0.2 - 0.8 K/cumm CERNER BJ Comment:Testing performed by : [facility], [address] [place], [place] [id number] Eosinophil abs 0.2 0.0 - 0.5 K/cumm CERNER BJ Comment:Testing performed by : [facility], [address] [place] [phone] Basophil abs 0.0 0.0 - 0.1 K/cumm CERNER BJ Comment:Testing performed by : [facility], [address] [place] [phone] Neutrophil pct 44.6 % CERNER BJ Comment: Interpretive Data Percent cell count reference ranges are not reported, since discordance with absolute values may lead to misinterpretation of CBC data. Current Interpretive Data was last revised on 2017. Testing performed by: [facility], [address] [place] [phone] Lymphocyte pct 45.5 % CERNER BJ Comment: Interpretive Data Percent cell count reference ranges are not reported, since discordance with absolute values may lead to misinterpretation of CBC data. Current Interpretive Data was last revised on 2017. Testing performed by: [facility], [address] [place] [phone] Monocyte pct 8.1 % NITHIN WRIGHT Comment: Interpretive Data Percent cell count reference ranges are not reported, since discordance with absolute values may lead to misinterpretation of CBC data. Current Interpretive Data was last revised on 2017. Testing performed by: [facility], [address] [place] [phone] Eosinophil pct 1.6 % NITHIN WRIGHT Comment: Interpretive Data Percent cell count reference ranges are not reported, since discordance with absolute values may lead to misinterpretation of CBC data. Current Interpretive Data was last revised on 2017. Testing performed by: [facility], [address] [place], [place] [id number] Basophil pct 0.2 % NITHIN WRIGHT Comment: Interpretive Data Percent cell count reference ranges are not reported, since discordance with absolute values may lead to misinterpretation of CBC data. Current Interpretive Data was last revised on 2017. Testing performed by: [facility], [address] [place] [address] Blood 06/30/2024 8:40 AM DIRECTOR INFORMATICS 06/30/2024 8:55 AM DIRECTOR INFORMATICS Herson Adkins MD LAB BLOOD ORDER EMILY Final Result [facility] [place] [address] * (ABNORMAL) CBC with auto differential (06/30/2024 8:40 AM DIRECTOR INFORMATICS) WBC 10.6(H) 3.8 - 9.9 K/cumm Comment:Testing performed by : [facility], [address] [place] [address] Hgb 13.7 11.9 - 15.5 g/dL NITHIN WRIGHT Comment:Testing performed by : [facility], [address] [place] [address] Hct 40.9 35.6 - 45.5 % NITHIN WRIGHT Comment:Testing performed by : [facility], [address] [place] [address] Plt 246 150 - 400 K/cumm NITHIN WRIGHT Comment:Testing performed by : [facility], [address] [place] [address] MPV 7.7 6.8 - 10.4 fL NITHIN WRIGHT Comment:Testing performed by : [facility], [address] [place] [address] RBC 4.21 3.90 - 5.20 M/cumm NITHIN BJ Comment:Testing performed by : [facility], [address] [place] [address] MCV 97.0(H) 81.3 - 96.4 fL NITHIN WRIGHT Comment:Testing performed by : [facility], [address] [place] [address] MCH 32.5 27.1 - 33.3 pg NITHIN WRIGHT Comment:Testing performed by : [facility], [address] [place] [address] MCHC 33.5 32.3 - 35.7 g/dL NITHIN [facility] Comment:Testing performed by : [facility], [address] [place] [address] RDW CV 14.0 11.1 - 14.9 % NITHIN [facility] Comment:Testing performed by : [facility], [address] [place] [address] NRBC abs 0.00 0.00 - 0.01 K/cumm NITHIN WRIGHT Comment:Testing performed by : [facility], [address] [place] [address] Blood 06/30/2024 8:40 AM DIRECTOR INFORMATICS 06/30/2024 8:55 AM DIRECTOR INFORMATICS us Herson Adkins MD LAB BLOOD ORDER EMILY Final Result [facility] WRIGHT [facility] [place] [address] * Uric acid (06/30/2024 8:40 AM DIRECTOR INFORMATICS) Uric acid 6.8 2.5 - 7.0 mg/dL Blood 06/30/2024 8:40 AM DIRECTOR INFORMATICS 06/30/2024 8:56 AM DIRECTOR INFORMATICS Herson Adkins MD LAB BLOOD ORDER EMILY Final Result [facility] [place] [address] * (ABNORMAL) Comprehensive metabolic panel (06/30/2024 8:40 AM DIRECTOR INFORMATICS) Pathologist [facility] [place] Sodium 149(H) 135 - 145 mmol/L Potassium, pl 4.1 3.3 - 4.9 mmol/L [facility] Chloride 110 97 - 110 mmol/L [facility] CO2 29 22 - 32 mmol/L [facility] Anion gap 10 2 - 15 mmol/L [facility] BUN 19 6 - 25 mg/dL [facility] Creatinine 1.31(H) 0.60 - 1.10 mg/dL [facility] Glucose 96 70 - 199 mg/dL [facility] Comment: Interpretive Data Fasting glucose >/= 126 [...] classification and Diagnosis of Diabetes Diabetes Care 202; 46: S19-S40. Current interpretive data was last revised 2022. Calcium 9.8 8.5 - 10.3 mg/dL [facility] Bilirubin, total 0.3 0.1 - 1.2 mg/dL [facility] Protein, pl 7.0 6.5 - 8.5 g/dL [facility] Albumin 4.2 3.5 - 5.0 g/dL [facility] Alk phos 71 40 - 130 Units/L CERNER [facility] ALT 67(H) 7 - 45 Units/L CERNER [facility] AST 35 10 - 45 Units/L CERNER [facility] Blood 06/30/2024 8:40 AM DIRECTOR INFORMATICS 06/30/2024 8:56 AM DIRECTOR INFORMATICS us Herson Adkins MD LAB BLOOD ORDER EMILY Final Result NITHIN [facility] [place] [address] * Dexa Axial Skeleton Bone Density 1 or 2 Site (09/17/2023 9:31 AM CDT) Anatomical Region Laterality Modality Body N/A Radiographic Matilde ging Narrative 09/17/2023 10:24 AM CDT Patient Name: Veronica Snow Date of : 1960 Date of scan: 09/17/2023 Bone mineral density was performed on a HoloCrowdtap Discovery Densitometer. Based on machine cross-calibration and [...] mineral density scan were prepared by Netta Doe(Qi)(M)(BD) CBDT who is accredited by the International Society of Clinical Densitometry. The overall patient assessment and scan interpretation were performed by Ro Cole MD who is certified by the International Society of Clinical Densitometry. [id number] Sheridan Veliz MD IMG DXA PROCEDURES Final Result from Last 3 Months or Most Recently Relevant to Health Maintenance Insurance GENERIC [employer] [facility] [employer] [facility] CHOICE PLUS [facility] HMO/PPO Address: [address] [address] [place] [address] [facility] [employer] Advance Directives For more information, please contact: [phone] * Full Code (Latest Code Status on File) Date Activated Date Inactivated Comments 01/18/2021 10:42 AM 01/18/2021 4:04 PM * Full Code Date Activated Date Inactivated Comments 01/18/2021 10:12 AM 01/18/2021 10:42 AM Care Teams Staffing Rn Relationship Specialty Start Date End Date Gwen Lui PA [facility] [place] [address] PCP - General 01/18/21 Herson Adkins MD Medical Oncologist/Switch Cleaner Medical Oncology 01/11/21
--- OUTSIDE RECORDS SUMMARY | 2024-08-26 14:31 | XMS_ITS | Clinical Summary ---
Author Organization [facility] Address [address] [place] [address] Care Team Providers Care Sephora Operations Consultant Name Role Phone Felipe Lui Primary Care Provider Allergies No known active allergies Medications Calcium-Vitamin D3 (CALCIUM PLUS VITAMIN D3) 600-500 MG-UNIT Cap 8 Active Cetirizine HCl (ZYRTEC OR) Take by mouth daily. Active acyclovir 400 MG tablet Take 1 tablet (400 mg total) by mouth 3 (three) times daily. 1 Active daratumumab 1800 mg-hyaluronidas e 36062 units-[facility] [id number] MG-UT/15ML Solution injection 1 Active dexamethasone 4 MG tablet Take 5 tablets (20 mg total) by mouth. 1 Active prochlorperazin e 10 MG tablet Take by mouth every 6 (six) hours as needed. 1 Active ezetimibe 10 MG tablet TAKE 1 TABLET(10 MG) BY MOUTH 1 TIME EACH DAY 1 Active acetaminophen (TYLENOL) 325 MG tablet 2 Active pravastatin (PRAVACHOL) 20 MG tablet 2 Active DIPHENHIST 25 MG capsule TAKE 1 CAPSULE BY MOUTH ONCE FOR 1 DOSE. TAKE 1-3 HOURS PRIOR TO EACH DARATUMUMAB DOSE 2 Active immune globulin (human) 12 g SOLR, immune globulin (human) 6 g SOLR Inject into the vein once. The infusion is every 2 months. Active amLODIPine (NORVASC) 10 MG tablet Take 1 tablet (10 mg total) by mouth daily. 3 Active hydroCHLOROthia zide (MICROZIDE) 12.5 MG capsule Take 1 capsule (12.5 mg total) by mouth daily. 3 Active sodium bicarbonate 650 MG tablet TAKE 1 TABLET BY MOUTH TWICE DAILY ON A FULL STOMACH 4 Active famotidine (PEPCID) 20 MG tabletIndicatio ns:Gastroesopha geal reflux disease without esophagitis TAKE 1 TABLET(20 MG) BY MOUTH TWICE DAILY 180 tablet 1 4 Active fluticasone propionate (FLONASE) 50 MCG/ACT nasal sprayIndication s:Seasonal allergies shake liquid and use 2 sprays in each nostril daily 48 g 1 4 Active benzonatate (TESSALON PERLES) 100 MG capsuleIndicati ons:Acute cough Take 1 capsule (100 mg total) by mouth 3 (three) times daily as needed for Cough. 30 capsule 5 08/09/19 25 oseltamivir (TAMIFLU) 75 MG capsuleIndicati ons:Influenza A Take 1 capsule (75 mg total) by mouth 2 (two) times daily for 5 days. 10 capsule 5 08/09/19 25 predniSONE (DELTASONE) 20 MG tabletIndicatio ns:Upper respiratory infection Take 1 tablet (20 mg total) by mouth daily for 4 days. 4 tablet 5 08/16/19 25 Active Problems Problem Noted Date Diagnosed Date COVID-19 vaccine series completed 05/24/2021 Hypercalcemia 03/14/2021 Chronic bilateral low back pain without sciatica 07/19/2019 Hyperlipemia 05/25/2019 Multiple myeloma in remission ([facility]) 05/25/2019 Stage 3 chronic kidney disease ([facility]) 05/25/2019 Osteoporosis without current pathological fractu re 01/05/2019 Overview (07/15/2019): Last Assessment & Plan: -received a low dose of Zometa 3 mg in September -her vitamin D level is normal, will continue current calcium and vitamin D supplementation -we discussed the importance of weight bearing exercise -will plan to repeat DEXA scan in 09/2019 Abnormality of plasma protein 08/01/2015 Other (abnormal) findings on radiological examination of breast 01/28/2014 Resolved Problems Problem Noted Date Diagnosed Date Resolved Date Sore throat 11/02/2020 11/09/2020 Nausea and vomiting, intract ability of vomiting not specified, unspecified vomiting type 11/02/2020 11/09/2020 Diarrhea, unspecified type 11/02/2020 0 11/09/2020 Sinus headache 11/02/2020 11/09/2020 Nasal congestion 11/02/2020 11/09/2020 Acute bacterial conjunctivitis of right eye 07/19/2019 11/09/2020 Cough 07/19/2019 11/09/2020 Chronic kidney disease, stag e 4 (severe) ([facility]) 05/25/2019 11/09/2020 Encounters Date Type Department Care Team Description 08/19/2024 Telephone [facility] Internal [address] [phone] Felipe Lui APNP Orders 08/11/[address] [phone] Felipe Lui APNP Advice; Medication Request 08/04/2024 1:00 PM SENIOR RECRUITMENT CONSULTANT Office Visit [address] [phone] Felipe Lui APNP URI/ENT Symptoms (Onset yesterday-general malaise. Today cough, congestion, ears popping, vertigo. Taking Mucus Relief D, Nyquil. ) 08/04/2024 Travel 08/03/[address] [phone] Felipe Lui APNP Work Excuse 07/29/2024 Telephone [facility] [address] [phone] Felipe Lui APNP Medication Request 07/28/2024 Scan Indicee INFO SRVCS Scanned, [facility] 06/25/2024 Telephone [facility] Family & Internal Medicine [address] [phone] Felipe Lui APNP Medication Request from Last 3 Months Immunizations Name Administration Dates Next Due Flucelvax 2 YRS+ (Multi-Dose Vial) 03/19/2019 Hepatitis B (Generic: Adult) 07/02/2019,05/28/20 19 Influenza (Generic) 03/30/2021,02/22/2019,2015 Influenza Adult (Generic) 03/21/2023,11/2021,03/30/2021,2019,03/31/2020,03/13/2018,03/13/2018,1 ,03/28/2017,03/22/2016, 013 PFIZER COVID-19 (ORIGINAL FORMULATION, PURPLE CAP) mRNA, LNP-S, PF, 30 MCG/0.3 ML DOSE 02/03/2021,01/13/2021 Pneumococcal (Pneumovax 23) 11/05/2016 Pneumococcal (Prevnar 13) 05/04/2021,09/10/2016 Shingrix 07/19/2018,02/15/2018 Tdap (Adacel) 11/26/2016 Tdap (Historical Only-select from magnify glass) 05/25/2019 Zoster (Zostavax) [address] Unt/0.65Ml 02/15/2018 Family History Medical History Relation Comments Cancer Brother 1 Lung cancer Diabetes Brother 1 Early Brother 1 Diabetes Brother 3 Cancer Father skin Stroke Father CHF Mother COPD Mother Diabetes Mother Emphysema Mother Lung Disease Mother Cancer Sister 1 Breast cancer Hypertension Sister 1 Cancer Sister 2 Lung cancer Cancer Sister 3 Breast cancer Relation Status Comments Brother 1 Brother 2 Alive Brother 3 Alive Father Mother Sister 1 Sister 2 Sister 3 Social History Tobacco Use Types Packs/Day Years Used Date Smoking Tobacco: Never Smokeless Tobacco: Never Tobacco Cessation:Counseling Given: No Alcohol Use Standard Drinks/Week Comments No 0 (1 standard drink = 0.6 oz pur e alcohol) AUDIT-C Answer Date Recorded Frequency of Alcohol Consumption Never 05/25/2019 Average Number of Drinks Not on file 019 Frequency of Binge Drinking Not on file 07/2018 PHQ-2 Answer Date Recorded Patient Health Questionnaire-2 Score 0 08/04/2024 Comments No Sex and Gender Information Value Date Recorded Sex Assigned at Female 08/04/2024 1:33 PM SENIOR RECRUITMENT CONSULTANT Legal Sex Female 4:58 PM SENIOR RECRUITMENT CONSULTANT Gender Identity Not on file Sexual Orientation Not on file Last Filed Vital Signs Vital Sign Reading Time Taken Comments Blood Pressure 132/64 08/04/2024 1:33 PM SENIOR RECRUITMENT CONSULTANT Pulse 118 08/04/2024 1:33 PM SENIOR RECRUITMENT CONSULTANT Temperature 37 C (98.6 F) 08/04/2024 1:33 PM SENIOR RECRUITMENT CONSULTANT Respiratory Rate 20 08/04/2024 1:33 PM SENIOR RECRUITMENT CONSULTANT Oxygen Saturation 97% 08/04/2024 1:33 PM SENIOR RECRUITMENT CONSULTANT Inhaled Oxygen Concentration - - Weight 69.7 kg (153 lb 9.6 oz) 08/04/2024 1:33 P M SENIOR RECRUITMENT CONSULTANT Height 162.6 cm (5' 4 ) 08/04/2024 1:33 PM SENIOR RECRUITMENT CONSULTANT Body Mass Index 26.37 08/04/2024 1:33 PM SENIOR RECRUITMENT CONSULTANT Plan of Treatment Health Maintenance Due Date Last Done Comments Colorectal Cancer Screening Colonoscopy (10 Years) 1960 RSV Immunization or 60+ Years (1 - Risk 60-74 years 1-dose series) 2018 COVID-19 Vaccine (3 - Pfizer risk series) 03/03/2021 02/03/2021, 01/13/2021 Influenza Adult (#1) 2024 03/21/2023, 03/29/2022, 03/30/2021, Additional history exists Mammogram Screening 01/19/2026 01/20/2024, 12/05/2023, 12/05/2023, Additional history exists Pneumococcal Vaccine: 65+ Years (3 of 3 - PPSV23 or PCV20) 05/04/2026 05/04/2021, 11/05/2016, 09/10/2016 Pneumococcal Vaccine: Pediatrics (0 to 5 Years) and At-Risk Patients (6 to 64 Years) (3 of 3 - PPSV23 or PCV20) 05/04/2026 05/04/2021, 11/05/2016, 09/10/2016 DTaP, Tdap and Td Vaccines (3 - Td or Tdap) 05/25/2029 05/25/2019, 11/26/2016 Zoster Vaccines Completed 07/19/2018, 01/23, 02/15/2018 Hepatitis C Completed 04/26/2020 Dexa Scan (General) Completed 09/17/2023, 09/17/2023, 04/24/2022, Additional history exists PHQ-2 (Physician [place]) Completed 08/04/2024 Meningococcal B Vaccine Aged Out No l onger eligible based on patient's age to complete this topic Meningococcal Vaccine Aged Out No siddhartha shiloh eligible based on patient's age to complete this topic RSV Immunizations Under 20 Months Aged Out No longer eligible based on patient's age to complete this topic Procedures Procedure Name Priority Date/Time Associated Diagnosis Comments XR CHEST PA+LAT STAT 08/04/2024 2:17 PM SENIOR RECRUITMENT CONSULTANT Acute cough ELECTROCARDIOGRAM (NON MIDMARK ACQUIRED) Routine 08/04/2024 2:07 PM SENIOR RECRUITMENT CONSULTANT Tachycardia CORONAVIRUS (COVID-19) INFLUENZA A & B ANTIGEN IA PANEL Routine 08/04/2024 Acute cough Chills Body aches MAMMOGRAM GENERIC (SCAN ORDER) 01/20/2024 HEPATITIS C ANTIBODY Routine 04/26/2020 12:55 PM SENIOR RECRUITMENT CONSULTANT Need for hepatitis C screening test from Last 3 Months or Most Recently Relevant to Health Maintenance Results * XR CHEST PA+LAT (08/04/2024 2:17 PM SENIOR RECRUITMENT CONSULTANT) Anatomical Region Laterality Modality Chest Radiographic Matilde ging 08/04/2024 2:28 PM SENIOR RECRUITMENT CONSULTANT Impressions 08/04/2024 2:28 PM SENIOR RECRUITMENT CONSULTANT IMPRESSION: No acute findings Ordered By: FELIPE LUI Interpreted By: Sean Lowery MD, 08/04/2024 2:28 PM Narrative 08/04/2024 2:28 PM SENIOR RECRUITMENT CONSULTANT [facility] Internal [facility] [address] [address] 2 VIEWS OF THE CHEST Clinical history: Cough Comparison: March 10, 2024 2 views of the chest demonstrate the cardiac silhouette to be normal in size and appearance. The pulmonary vessels appear normal. The Lungs are clear. No consolidations or effusions are seen. Procedure Note Sean Lowery MD - 08/04/2024 [facility] [address] [address] 2 VIEWS OF THE CHEST Clinical history: Cough Comparison: March 10, 2024 2 views of the chest demonstrate the cardiac silhouette to be normal insize and appearance. The pulmonary vessels appear normal. The Lungs areclear. No consolidations or effusions are seen. IMPRESSION: No acute findings Ordered By: FELIPE LUI Interpreted By: Sean Lowery MD, 08/04/2024 2:28 PM us Felipe Lui APNP GENERAL IMAGING Final Resul t * EKG [place] ACQUIRED (08/04/2024 2:07 PM SENIOR RECRUITMENT CONSULTANT) 08/04/2024 2:07 PM SENIOR RECRUITMENT CONSULTANT Narrative [facility] - 08/05/2024 11:31 AM SENIOR RECRUITMENT CONSULTANT [place] [address] [place] [address] Test Date: 2024-08-04 Pat Name: VERONICA SNOW Department: 171 Room: Gender: Female Strong Nitric Operator: : 1960 Requested By: JOSE CHAIREZ Order Number: [id number] Reading MD: Jose Chairez Measurements Intervals [place] Rate: 118 P: 20 OR: 158 QRS: -19 QRSD: 80 T: 62 QT: 330 QTc: 464 Interpretive Statements SINUS TACHYCARDIA WITH OCCASIONAL SUPRAVENTRICULAR PREMATURE COMPLEXES ABNORMAL RHYTHM ECG No prior ECG for comparison OR RECRUITMENT CONSULTANT Procedure Note Jose Chairez MD - 08/05/2024 [facility] [address] [place] [address] Test Date: 2024-08-04 Pat Name: VERONICA SNOW Department: 171 Room: Gender: Female Strong Nitric Operator: : 1960 Requested By: JOSE CHAIREZ Order Number: [id number] Reading MD: Jose Chairez Measurements Intervals [place] Rate: 118 P: 20 OR: 158 QRS: -19 QRSD: 80 T: 62 QT: 330 QTc: 464 Interpretive Statements SINUS TACHYCARDIA WITH OCCASIONAL SUPRAVENTRICULAR PREMATURE COMPLEXES ABNORMAL RHYTHM ECG No prior ECG for comparison OR RECRUITMENT CONSULTANT Jose Chairez MD PROCEDURES-ORDERABLE NO CHARGE Final Result Performing Organization Address City/[facility]/ZIP Co de Phone Number [facility] * (ABNORMAL) CORONAVIRUS (COVID-19) INFLUENZA A & B ANTIGEN IA PANEL (08/04/2024) [facility] CORONAVIRUS ANTIGEN IA NEGATIVE NEGATIVE [facility] INFLUENZA A POSITIVE(A) NEGATIVE [facility] INFLUENZA B NEGATIVE NEGATIVE [facility] Internal Control: VALID VALID [facility] NASAL STRUCTURE / Unknown 08/04/2024 Felipe CARNEY MICROBIOLOGY - GENERAL [place]ETTE WRIGHT Final Result Performing Organization Address City/[facility]/ZIP Co de Phone Number [facility] [address] [place] [address], [place] * MAMMOGRAM GENERIC (SCAN ORDER) (01/20/2024) Anatomical Region Laterality Modality Other 01/20/2024 [facility] Scanned SCANNING Final Resu lt * HEPATITIS C ANTIBODY (04/26/2020 12:55 PM SENIOR RECRUITMENT CONSULTANT) HEPATITIS C AB <0.1 0.0 - 0.9 s/co ratio [facility] 1 Comment: Negative: < 0.8 Indeterminate: 0.8 - 0.9 Positive: > 0.9 The CDC recommends that a positive HCV antibody result be followed up with a HCV Nucleic Acid Amplification test (961326). 04/26/2020 12:5 5 PM SENIOR RECRUITMENT CONSULTANT 04/26/2020 Narrative [facility] - 04/27/2020 8:14 AM SENIOR RECRUITMENT CONSULTANT Performed at: 01 - [facility] [address] [id number] Transportation Associate: Brian Holcomb PhD, Phone: [phone] us Felipe [facility] Final Resul t [facility] [address] [place] [address] [facility] 1 from Last 3 Months or Most Recently Relevant to Health Maintenance Insurance [employer] Care Teams Sephora Operations Consultant Relationship Specialty Start Date End Date Felipe Lui APNP [facility] [place] [address] PCP - General NURSE PRACTITIONER 05/25/19
--- OUTSIDE RECORDS SUMMARY | 2024-08-26 14:31 | XMS_ITS | Encounter Summary ---
Author Organization [facility] Address [facility] [place] [address] Care Team Providers Care Health Data Administrator Name Role Phone Bettye Hall MD Primary Care Provider [phone] Encounter Details Date Type Department Care Team (Late st Contact Info) Description 01/31/2021 Lab Requisition [facility] [address] [place] [address] Herson Adkins MD [address] DIV IM BONE MARROW TRANSPLANT, [address] [place] [address] Social History Tobacco Use Types Packs/Day Years Used Date Smoking Tobacco: Never Assessed Sex and Gender Information Value Date Recorded Sex Assigned at Not on file Gender Identity Not on file Sexual Orientation Not on file documented as of this encounter Plan of Treatment Not on file documented as of this encounter Procedures Procedure Name Priority Date/Time Associated Diagnosis Comments CBC W AUTO DIFFERENTIAL STAT 01/31/2021 11:19 AM CDT documented in this encounter Results * (ABNORMAL) CBC WITH DIFFERENTIAL (01/31/2021 11:19 AM CDT) WBC 4.9 4.4 - 10.7 x10E9/L 01/31/2021 3:42 PM CDT [facility] WBC Corrected 01/31/2021 3:42 PM CDT [facility] RBC 3.57(L) 3.80 - 5.20 x10E12/L 01/31/2021 3:42 PM CDT [facility] Hemoglobin 12.2 12.0 - 15.6 gm/dL 01/31/2021 3:42 PM CDT [facility] Hematocrit 36.2 35.9 - 45.5 % 01/31/2021 3:42 PM CDT [facility] MCV 101.4(H) 80.7 - 98.3 fl 01/31/2021 3:42 PM CDT [facility] MCH 34.2(H) 26.7 - 34.0 pg 01/31/2021 3:42 PM CDT [facility] MCHC 33.7 30.8 - 35.9 gm/dL 01/31/2021 3:42 PM CDT [facility] Platelet Count 177 153 - 416 x10E9/L 01/31/2021 3:42 PM CDT [facility] RDW-CV 14.7 12.1 - 14.9 % 01/31/2021 3:42 PM CDT [facility] MPV 10.3 9.4 - 12.9 fl 01/31/2021 3:42 PM CDT [facility] Neutrophils % 34.5(L) 44.0 - 73.0 % 01/31/2021 3:42 PM CDT [facility] Lymphocytes % 45.5(H) 20.0 - 43.0 % 01/31/2021 3:42 PM CDT [facility] Monocytes % 11.7 5.0 - 13.0 % 01/31/2021 3:42 PM CDT [facility] Eosinophils % 7.5(H) 0.0 - 6.0 % 01/31/2021 3:42 PM CDT [facility] Basophils % 0.4 0.0 - 2.0 % 01/31/2021 3:42 PM CDT [facility] Immature Granulocytes 0.4 0 - 1 % 01/31/2021 3:42 PM CDT [facility] Neutrophil Absolute 1.70(L) 2.01 - 7.14 x10E9/L 01/31/2021 3:42 PM CDT [facility] Lymphocytes Absolute 2.25 1.07 - 3.94 x10E9/L 01/31/2021 3:42 PM CDT [facility] Monocytes Absolute 0.58 0.26 - 1.07 x10E9/L 01/31/2021 3:42 PM CDT [facility] Eosinophils Absolute 0.37 0 - 0.47 x10E9/L 01/31/2021 3:42 PM CDT [facility] Basophils Absolute 0.02 0 - 0.08 x10E9/L 01/31/2021 3:42 PM CDT [facility] Immature Granulocytes Absolute 0.02 0.00 - 0.06 x10E9/L 01/31/2021 3:42 PM CDT [facility] nRBC Auto 0 /100 WBC 01/31/2021 3:42 PM CDT [facility] Blood BLOOD SPECIMEN / Unknown Venipuncture / Unknown 01/31/2021 11:19 AM CDT 01/31/2021 3:38 PM CDT Herson Adkins MD LAB - H EMATOLOGY ORDERABLES Performing Organization Address City/State/[facility] Co de Phone Number [facility] [address] [place] [address] documented in this encounter Visit Diagnoses Not on filedocumented in this encounter Care Teams Health Data Administrator Relationship Specialty Start Date End Date Bettye Hall MD [address] [place] [address] PCP - General 10/04/17 documented as of this encounter
--- OUTSIDE RECORDS SUMMARY | 2024-08-26 14:31 | XMS_ITS | Encounter Summary ---
Author Organization [facility] Healthcare Address [address] [place] [address] Care Team Providers Care Packaging Line Attendant Name Role Phone Herson Adkins MD Unavailable Gwen Lui Primary Care Provider + Reason for Visit * Episode Based Medications (Routine) - Authorized Specialty Diagnoses / Procedures Referred By Contac t Referred To Contact Diagnoses Multiple myeloma in relapse (HCC) Procedures MN ORAL PRESCRIPTION DRUG CHEMO [place] DARATUMUMAB, HYALURONIDASE Daratumumab SUBCUTANEOUS / Pomalidomide / Dexamethasone - 28 Day Cycles - Myeloma Herson Adkins MD [address] DIV IM BONE MARROW TRANSPLANT, [address] [place] [address] Phone: tel: fax: [facility] - Infusion [address] [facility] [address] [place] [address] Referral ID Status Reason Start Date Expiration Date V isits Requested Visits Authorized [id number] Authorized 02/21/2021 11/20/2024 1 64 Encounter Details Date Type Department Care Team (Late st Contact Info) Description 08/25/2024 2:00 PM CASING SPLITTER Lab [facility] - Lab Collection [address] [facility] [address] [place] [address] Multiple myeloma in relapse (HCC) Social History Tobacco Use Types Packs/Day Years Used Date Smoking Tobacco: Never Passive Smoke Exposure: Never Smokeless Tobacco: Never Alcohol Use Standard [...] on file Legal Sex Female 5:16 AM CASING SPLITTER Gender Identity Female 10/09/2019 10:54 AM CDT Sexual Orientation Not on file documented as of this encounter Plan of Treatment Not on file documented as of this encounter Procedures Procedure Name Priority Date/Time Associated Diagnosis Comments EGFR STAT 08/25/2024 2:18 PM CASING SPLITTER Multiple myeloma in relapse (HCC) DIFFERENTIAL AUTO Routine 08/25/2024 2:1 8 PM CASING SPLITTER Multiple myeloma in relapse (HCC) CBC WITH AUTO DIFFERENTIAL Routine 08/25/2024 2:18 PM CASING SPLITTER Multiple myeloma in relapse (HCC) URIC ACID Routine 08/25/2024 2:18 PM CASING SPLITTER Multiple myeloma in relapse (HCC) COMPREHENSIVE METABOLIC PANEL STAT 08/25/2024 2:18 PM CASING SPLITTER Multiple myeloma in relapse (HCC) documented in this encounter Results * (ABNORMAL) eGFR (08/25/2024 2:18 PM CASING SPLITTER) eGFR 40(L) >=60 mL/min/1. 73 m2 Comment: [...] Inclusion of Race in Diagnosing Kidney Disease, ALEXISSN 2020). The CKD-EPI equation should not be used for patients with unstable renal function and has not been validated in children and those over 70. Current interpretive data was last reviewed 2021. Blood 08/25/2024 2:18 PM CASING SPLITTER 08/25/2024 2:35 PM CASING SPLITTER Luisa Brizuela PICK PULLING MACHINE OPERATOR LAB BLOOD ORDERABLES Mary lockhart Result [facility] Department [place] [address] * (ABNORMAL) Differential, auto (08/25/2024 2:18 PM CASING SPLITTER) Neutrophil abs 2.9 1.5 - 6.5 K/cumm Comment:Testing performed by : [facility], [address] [place], [place] [phone] Lymphocyte abs 4.5(H) 0.8 - 3.3 K/cumm CERNER BJ Comment:Testing performed by : [facility], [address] [place] [phone] Monocyte abs 0.8 0.2 - 0.8 K/cumm CERNER BJ Comment:Testing performed by : [facility], [address] [place] [phone] Eosinophil abs 0.1 0.0 - 0.5 K/cumm CERNER BJ Comment:Testing performed by : [facility], [address] [place] [phone] Basophil abs 0.0 0.0 - 0.1 K/cumm CERNER BJ Comment:Testing performed by : [facility], [address] [place], [place] [phone] Neutrophil pct 34.7 % CERNER BJ Comment: Interpretive Data Percent cell count reference ranges are not reported, since discordance with absolute values may lead to misinterpretation of CBC data. Current Interpretive Data was last revised on 2017. Testing performed by: [facility], [address] [place] [phone] Lymphocyte pct 54.1 % CERHERBIE WRIGHT Comment: Interpretive Data Percent cell count reference ranges are not reported, since discordance with absolute values may lead to misinterpretation of CBC data. Current Interpretive Data was last revised on 2017. Testing performed by: [facility], [address] [place] [phone] Monocyte pct 9.7 % CERHERBIE WRIGHT Comment: Interpretive Data Percent cell count reference ranges are not reported, since discordance with absolute values may lead to misinterpretation of CBC data. Current Interpretive Data was last revised on 2017. Testing performed by: [facility], [address] [place] [phone] Eosinophil pct 1.3 % CERHERBIE WRIGHT Comment: Interpretive Data Percent cell count reference ranges are not reported, since discordance with absolute values may lead to misinterpretation of CBC data. Current Interpretive Data was last revised on 2017. Testing performed by: [facility], [address] [place] [phone] Basophil pct 0.2 % CERHERBIE WRIGHT Comment: Interpretive Data Percent cell count reference ranges are not reported, since discordance with absolute values may lead to misinterpretation of CBC data. Current Interpretive Data was last revised on 2017. Testing performed by: [facility], [address] [place] [phone] Blood 08/25/2024 2:18 PM CASING SPLITTER 08/25/2024 2:34 PM CASING SPLITTER Luisa Brizuela PICK PULLING MACHINE OPERATOR LAB BLOOD ORDERABLES Mary l Result NITHIN WRIGHT [facility] Department [place] [address] * (ABNORMAL) CBC with auto differential (08/25/2024 2:18 PM CASING SPLITTER) WBC 8.3 3.8 - 9.9 K/cumm Comment:Testing performed by : [facility], [address] [place] [address] Hgb 12.9 11.9 - 15.5 g/dL CERNER BJ Comment:Testing performed by : [facility], [address] [place] [address] Hct 37.8 35.6 - 45.5 % CERNER BJ Comment:Testing performed by : [facility], [address] [place], [place] [phone] Plt 202 150 - 400 K/cumm CERNER BJ Comment:Testing performed by : [facility], [address] [place] [address] MPV 8.2 6.8 - 10.4 fL CERNER BJ Comment:Testing performed by : [facility], [address] [place], [place] [phone] RBC 3.97 3.90 - 5.20 M/cumm CERNER BJ Comment:Testing performed by : [facility], [address] [place] [address] MCV 95.5 81.3 - 96.4 fL CERNER BJ Comment:Testing performed by : [facility], [address] [place] [address] MCH 32.6 27.1 - 33.3 pg CERNER BJ Comment:Testing performed by : [facility], [address] [place] [address] MCHC 34.2 32.3 - 35.7 g/dL CERNER BJ Comment:Testing performed by : [facility], [address] [place] [address] RDW CV 16.1(H) 11.1 - 14.9 % CERNER BJ Comment:Testing performed by : [facility], [address] [place] [address] NRBC abs 0.00 0.00 - 0.01 K/cumm CERNER BJ Comment:Testing performed by : [facility], [address] [place] [address] Blood 08/25/2024 2:18 PM CASING SPLITTER 08/25/2024 2:34 PM CASING SPLITTER us Luisa Brizuela NP LAB BLOOD ORDERABLES Mary lockhart Result [facility] Department [place] [address] * (ABNORMAL) Comprehensive metabolic panel (08/25/2024 2:18 PM CASING SPLITTER) Sodium 147(H) 135 - 145 mmol/L Potassium, pl 3.7 3.3 - 4.9 mmol/L [facility] Chloride 108 97 - 110 mmol/L CERNER [facility] CO2 30 22 - 32 mmol/L [facility] Anion gap 9 2 - 15 mmol/L [facility] BUN 17 6 - 25 mg/dL [facility] Creatinine 1.46(H) 0.60 - 1.10 mg/dL [facility] Glucose 89 70 - 199 mg/dL [facility] Comment: Interpretive Data Fasting glucose [...] Calcium 9.6 8.5 - 10.3 mg/dL CERNER [facility] Bilirubin, total 0.3 0.1 - 1.2 mg/dL [facility] Protein, pl 7.0 6.5 - 8.5 g/dL [facility] Albumin 4.3 3.5 - 5.0 g/dL [facility] Alk phos 59 40 - 130 Units/L CERNER BJ ALT 29 7 - 45 Units/L [facility] AST 20 10 - 45 Units/L [facility] Blood 08/25/2024 2:18 PM CASING SPLITTER 08/25/2024 2:35 PM CASING SPLITTER Luisa Brizuela PICK PULLING MACHINE OPERATOR LAB BLOOD ORDERABLES Mary l Result [facility] [place] [address] * (ABNORMAL) Uric acid (08/25/2024 2:18 PM CASING SPLITTER) Uric acid 7.7(H) 2.5 - 7.0 mg/dL Blood 08/25/2024 2:18 PM CASING SPLITTER 08/25/2024 2:35 PM CASING SPLITTER Luisa Brizuela PICK PULLING MACHINE OPERATOR LAB BLOOD ORDERABLES Mary l Result Performing Organization Address [facility] de Phone Number [facility] [place] [address] documented in this encounter Visit Diagnoses Diagnosis Multiple myeloma in relapse (HCC) Multiple myeloma, in relapse documented in this encounter Orders Appointment Requests Count Last Ordered Date Fi rst Ordered Date ONCBCN LAB APPOINTMENT 1 08/25/2024 documented in this encounter Care Teams Packaging Line Attendant Relationship Specialty Start Date End Date Gwen Lui PA [address] [place] [id number] PCP - General 01/18/21 Herson Adkins MD Medical Oncologist/Reinforcing Iron Worker Helper Medical Oncology 01/11/21 documented as of this encounter
--- OUTSIDE RECORDS SUMMARY | 2024-08-26 14:31 | XMS_ITS | Clinical Summary ---
Author Organization [facility] Address [address] [place] [address] Care Team Providers Care Social Media Project Manager Name Role Phone Bettye Hall MD Primary Care Provider [phone] Source Comments [facility],non-owned Affiliates and Associated Physician Practices is amultiple site organization consisting of ambulatory clinics and hospital sitesin [place], [place], [place] and [place]. This disclosure is being madepursuant to the Care Everywhere program and may not contain all information available regarding this patient. Last updated 18.[facility] [employer] Social History Tobacco Use Types Packs/Day Years Used Date Smoking Tobacco: Never Assessed Sex and Gender Information Value Date Recorded Sex Assigned at Not on file Gender Identity Not on file Sexual Orientation Not on file Plan of Treatment Health Maintenance Due Date Last Done Comments BONE DENSITY TESTING 1960 COLOGUARD (AGES 45-75) - COL ON CA SCREENING 1958 COLON MONITORING 1958 COLONOSCOPY - COLON CA SCREENING 1958 CT COLONOGRAPHY - COLON CA SCREENING 1958 Colorectal Cancer Screening 1958 FIT - COLON CA SCREENING 1958 FLEX SIG - COLON CA SCREENING 1958 LIPID TESTING 1958 MAMMOGRAM 1958 PAP SMEAR 1958 HIV SCREENING 1973 HEPATITIS C SCREENING 10/20/1976 DTAP/TDAP/TD VACCINES (1 - Tdap) 1977 PNEUMOCOCCAL VACCINE 50+ (1 of 1 - PCV) 2008 ZOSTER VACCINE (1 of 2) 2008 COVID-19 VACCINE (1 - 2023-2 5 season) 2024 INFLUENZA VACCINE (#1) 2024 DEPRESSION SCREENING 06/24/2024 Respiratory Syncytial Virus (RSV) Vaccine Pt: or over 60 yrs (1 - 1-dose 75+ series) 2033 HEPATITIS B VACCINE Aged Out No longe r eligible based on patient's age to complete this topic HIB VACCINE Aged Out No longer eligi ble based on patient's age to complete this topic HPV VACCINE Aged Out No longer eligi ble based on patient's age to complete this topic MENINGOCOCCAL (Group B) VACCINE Aged Out No longer eligible based on patient's age to complete this topic MENINGOCOCCAL VACCINE Aged Out No siddhartha shiloh eligible based on patient's age to complete this topic Care Teams Social Media Project Manager Relationship Specialty Start Date End Date Bettye Hall MD [address] [place] [address] PCP - General 10/04/17
--- OUTSIDE RECORDS SUMMARY | 2024-08-26 14:31 | XMS_ITS | Encounter Summary ---
Author Organization [facility] Healthcare Address [address] [place] [address] Care Team Providers Care Antichecking Iron Worker Name Role Phone Hersno Adkins MD Unavailable Gwen Lui Primary Care Provider + Reason for Visit * Episode Based Medications (Routine) - Authorized Specialty Diagnoses / Procedures Referred By Contac t Referred To Contact Diagnoses Multiple myeloma in relapse (HCC) Procedures MS ORAL PRESCRIPTION DRUG CHEMO MS DARATUMUMAB, HYALURONIDASE Daratumumab SUBCUTANEOUS / Pomalidomide / Dexamethasone - 28 Day Cycles - Myeloma Herson Adkins MD [address] DIV IM BONE MARROW TRANSPLANT, [address] [place] [address] Phone: tel: fax: [facility] - Infusion [address] [facility] [address] [place] [address] Referral ID Status Reason Start Date Expiration Date V isits Requested Visits Authorized [id number] Authorized 02/21/2021 11/20/2024 1 64 Encounter Details Date Type Department Care Team (Late st Contact Info) Description 08/25/2024 3:00 PM THIMBLE PRESS OPERATOR Infusion [facility] - Infusion [address] [facility] [address] [place] [address] Multiple myeloma in relapse (HCC) (Primary Dx) Social History Tobacco Use Types Packs/Day Years [...] on file Legal Sex Female 5:16 AM THIMBLE PRESS OPERATOR Gender Identity Female 10/09/2019 10:54 AM CDT Sexual Orientation Not on file documented as of this encounter Last Filed Vital Signs Vital Sign Reading Time Taken Comments Blood Pressure 120/79 08/25/2024 3:35 PM THIMBLE PRESS OPERATOR Pulse 96 08/25/2024 3:35 PM THIMBLE PRESS OPERATOR Temperature 36.9 C (98.5 F) 08/25/2024 3:35 PM THIMBLE PRESS OPERATOR Respiratory Rate 18 08/25/2024 3:35 PM THIMBLE PRESS OPERATOR Oxygen Saturation 96% 08/25/2024 3:35 PM THIMBLE PRESS OPERATOR Inhaled Oxygen Concentration - - Weight 67.4 kg (148 lb 9.4 oz) 08/25/2024 2:53 P M THIMBLE PRESS OPERATOR Height - - Body Mass Index 25.51 05/26/2024 9:59 AM THIMBLE PRESS OPERATOR documented in this encounter Nursing Notes * Malcolm Salmon RN - 08/25/2024 3:00 PM CST Oncology Nursing Note [facility] - INFUSION Veronica Escobar is a 63 y.o. female who presents for treatment cycle 43, day 1 of Darartumumab. Pre-treatment Nursing Assessment Nursing Assessment LOC: Alert, Awake Constitutional: Fatigue Fatigue: Occassional Any falls since your last visit?: No Orientation: Oriented x4 Behavior: Calm Speech: Clear Language: No aphasia Vision: At baseline Peripheral Neuropathy: No Oral Mucosa Grade: Normal (0) Pt states has potential to be ?: No Shortness of Breath?: No Lungs auscultated PRN: No Pt is on oxygen?: No Appetite: Good Have You Recently Lost Weight Without Trying?: No Have you been eating poorly because of a decreased appetite?: No Malnutrition Screening Tool (MST) Score: 0 Nausea/Vomiting: No Abdomen: Soft Diarrhea: No Constipation: No Last BM Date: 03/03/25 Skin Condition/Temp: Warm, Dry Swelling: No Additional Notes: Patient states she took premeds at 1330 today Encounter Vitals BP: 114/71 (08/25/2024 2:53 PM) Pulse: 107 (08/25/2024 2:53 PM) Resp: 20 (08/25/2024 2:53 PM) Temp: 36.8 ??C (98.2 ??F) (08/25/2024 2:53 PM) Temp src: Tympanic (08/25/2024 2:53 PM) SpO2: 98 % (08/25/2024 2:53 PM) Weight: 67.4 kg (148 lb 9.4 oz) (08/25/2024 2:53 PM) Pain Score: 5 - Moderate pain (baseline) Treatment Patient: met treatment parameters Pre blood return: N/A Veronica Escobar tolerated treatment well. Patient was frequently observed and monitored throughout the administration of their treatment. Additional Notes: Patient discharged in stable condition. Patient Education Treatment Education: Information/teaching given to patient including fall prevention, signs and symptoms of infection, bleeding, adverse reaction, symptom management, process and procedure related totoday's visit, and when to notify MD Response: Verbalizes understanding Discharge Plan Discharge instructions given to patient. Future appointments given and reviewed with treatment plan. Discharge Mode: Ambulatory Accompanied by: Family Discharged To: Home BLE PRESS OPERATOR documented in this encounter Plan of Treatment Not on file documented as of this encounter Visit Diagnoses Diagnosis Multiple myeloma in relapse (HCC)- Primary Multiple myeloma, in relapse documented in this encounter Administered Medications Inactive Administered Medications - up to 3 most recent administrations Medication Order MAR Action Action Date Dose Rate Site daratumumab-fihj (DARZALEZ FASPRO) 1,800 mg -30,000 units hyaluronidase subcutaneous injection (daratumumab-fihj (DARZALEX FASPRO)) 1,800 mg, subcutaneous, Administer over 5 Minutes, Once, On Sat08/25/24 at 1645, For 1 dose, Alternate injections between left and right abdomen. Never inject into areas where the skin is red, bruised, tender, hard or areas where there are scars. For subcutaneous use only. Administer into the subcutaneous tissue of the ABDOMEN approximately 3 inches to the right or left of the navel over approximately 5 minutes.Indications:Multi ple myeloma in relapse (HCC) Given 08/25/2024 3:26 PM THIMBLE PRESS OPERATOR 1,800 mg Left Lower Abdomen documented in this encounter Orders Medications Ordered That Sergo ht Not Have Been Administered Count Last Ordered Date First Ordered Date acetaminophen (TYLENOL) tablet 650 mg 1 09/2024 diphenhydrAMINE (BENADRYL) tab/cap 25 mg 1 08/25/2024 Nursing Count Last Ordered Date First Orde red Date ONCBCN NURSING COMMUNICATION 11 1 ONCBCN NURSING COMMUNICATION 12 1 ONCBCN NURSING COMMUNICATION 4 1 08/25/2024 ONCBCN NURSING COMMUNICATION [id number] 1 08/25 ONCBCN NURSING COMMUNICATION 5 1 08/25/2024 ONCBCN PROVIDER COMMUNICATION 44 1 08/26/19 ONCBCN TREATMENT PARAMETERS 9 1 08/25/2024 Appointment Requests Count Last Ordered Date Fi rst Ordered Date ONCBCN RETURN CHEMO 2.5HRS 1 08/25/2024 documented in this encounter Care Teams Antichecking Iron Worker Relationship Specialty Start Date End Date Gwen Lui PA [facility] [place] [address] PCP - General 01/18/21 Herson Adkins MD Medical Oncologist/Clinical Review Specialist Medical Oncology 01/11/21 documented as of this encounter
--- OUTSIDE RECORDS SUMMARY | 2024-08-26 14:31 | XMS_ITS | Referral Summary ---
Author Organization [facility] Address [address] [place] [address] Care Team Providers Care Mobile Device Developer Name Role Phone Bettye Hall MD Primary Care Provider [phone] Source Comments [facility] and [facility] Practices is amultiple site organization consisting of ambulatory clinics and hospital sitesin [place], [place], [place] and [place]. This disclosure is being madepursuant to the Care Everywhere program and may not contain all information available regarding this patient. Last updated 18.[facility] Social History Tobacco Use Types Packs/Day Years Used Date Smoking Tobacco: Never Assessed Sex and Gender Information Value Date Recorded Sex Assigned at Not on file Gender Identity Not on file Sexual Orientation Not on file Plan of Treatment Not on file Care Teams Mobile Device Developer Relationship Specialty Start Date End Date Bettye Hall MD [address] [place], [place] [id number] PCP - General 10/04/17
--- OUTSIDE RECORDS SUMMARY | 2024-08-26 14:31 | XMS_ITS ---
Author Organization [facility] Address [address] [place] [address] Care Team Providers Care Corner Trimmer Operator Name Role Phone Herson Adkins MD Unavailable Gwen Lui Primary Care Provider + Active Problems Problem Noted Date Diagnosed Date [...] disease 04/24/2017 Abnormality of plasma protein 08/01/2015 Current Treatment and Therapy Plans Daratumumab SUBCUTANEOUS / Pomalidomide (D/C'ed) / Dexamethasone - 28 Day Cycles - Myeloma* Plan Start Date:02/20/2021 Plan Provider:Herson Adkins MD Linked Problems Multiple myeloma in relapse (HCC) Treatment Medications Current Day (Day 1 , Cycle 44 - Planned for 09/29/2024) daratumumab-fihj (DARZALEX F ASPRO) (DARZALEX FASPRO)daratumumab-fihj (DARZALEZ FASPRO) (DARZELEX FASPRO)pomalidomide (POMALYST) daratumumab-fihj (DARZALEX FASPRO) 1,800 mg -30,000 units hyaluronidase subcutaneous injection Denosumab (XGEVA) Injection* Plan Start Date:04/18/2021 Plan Provider:Herson Adkins MD Linked Problems Multiple myeloma in relapse (HCC) Treatment Medications No medications scheduled. Hydration Therapy Plan* Plan Start Date:05/02/2021 Plan Provider:Herson Adkins MD Linked Problems Multiple myeloma in relapse (HCC) Treatment Medications No medications scheduled. IMMUNE GLOBULIN (GAMUNEX) 10%* Plan Start Date:07/11/2021 Plan Provider:Herson Adkins MD Linked Problems Multiple myeloma not having achieved remission (HCC)Hypogammaglobulinemia Treatment Medications No medications scheduled. Past Treatment and Therapy Plans Oncology Chemotherapy Treatment Plan Name Start Date Discontinue Date Treatment Medications Discontinue Reason Plan Provider Cycles Lenalidomide Maintenance 28 Day Cycles - Myeloma 9 02/07/2021 lenalidomide (REVLIMID) Progressive Disease Angelito Sibley MD 12 of 12 cycles started Oncology Supportive Care Plan Name Start Date Discontinue Date Treatment Medications Discontinue Reason Plan Provider ZOLEDRONIC ACID (ZOMETA) INFUSION 10/06/2018 10/03/2020 No medications scheduled. 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
--- OUTSIDE RECORDS SUMMARY | 2024-08-26 14:31 | XMS_ITS | Clinical Summary ---
Author Organization [facility] Address [address] [place] [address] Phone Care Team Providers Care Armature Winder Name Role Phone Bettye Hall MD Primary Care Provider Allergies No known active allergies Medications simvastatin (ZOCOR) 10 mg tablet Take 10 mg by mouth Daily LATE. Active Active Problems Patient Care Coordination No te Formatting of this note migh t be different from the original. Primary Care: Bettye Hall MD Referring Provider: Mckayla Calixto MD [address] [facility] [place] [address] Other: Problem Noted Date Diagnosed Date Other (abnormal) findings on radiological examination of breast 01/28/2014 Family History Medical History Relation Name Comments Cancer Brother Lung Cancer Brother Heart Disease Father Stroke Father blood clot Cancer Maternal Aunt abdomen or pel vis Heart Disease Mother CHF Cancer Sister 1 Mariajose anal, half sist er Breast Cancer Sister 2 Emi 50s, half sist er, same father Healthy Sister 3 Danyell full sister FCD Healthy Sister 4 Yenni full sister Melanoma Sister 4 Yenni Ovarian Cancer Neg Hx Relation Name Status Comments Brother Father Maternal Aunt Mother Sister 1 Mariajose Sister 2 Emi Alive Sister 3 Danyell Alive Sister 4 Yenni Alive Social History Tobacco Use Types Packs/Day Years Used Date Smoking Tobacco: Never Smokeless Tobacco: Never Alcohol Use Standard Drinks/Week Comments Yes 0 (1 standard drink = 0.6 oz pur e alcohol) rare Comments No Sex and Gender Information Value Date Recorded Sex Assigned at Not on file Legal Sex Female 3:09 PM CDT Gender Identity Not on file Sexual Orientation Not on file Occupation Industry Job Start Date Job End Date Not on file Not on file Not on file Not on file Last Filed Vital Signs Vital Sign Reading Time Taken Comments Blood Pressure 134/70 02/03/2014 12:12 PM CDT Pulse 82 02/03/2014 12:12 PM CDT Temperature - - Respiratory Rate - - Oxygen Saturation - - Inhaled Oxygen Concentration - - Weight 76.2 kg (168 lb) 02/03/2014 12:12 PM CDT Height 162.6 cm (5' 4 ) 02/03/2014 12:12 PM CDT Body Mass Index 28.84 02/03/2014 12:12 PM CDT Plan of Treatment Health Maintenance Due Date Last Done Comments DTAP/TDAP/TD VACCINES (1 - Tdap) 1977 COLORECTAL SCREENING 10/26/2003 Colorectal Cancer Screening 10/26/2003 FIT-DNA Q 3 years 10/26/2003 FIT/FOBT Q 1 year 10/26/2003 Flex Sig/CT Colonography Q 5 years 10/26/2003 PNEUMOCOCCAL VACCINE 50+ YEA RS (1 of 1 - PCV) 2008 ZOSTER VACCINE (1 of 2) 2008 BREAST CANCER SCREENING 02/03/2015 02/04/20 14, 01/22/2014, 01/02/2014, Additional history exists OSTEOPOROSIS SCREENING 10/26/2023 INFLUENZA VACCINE (#1) 2024 RSV VACCINE (60+ or ) (1 - 1-dose 75+ series) 2033 Procedures Procedure Name Priority Date/Time Associated Diagnosis Comments MAMMO DIAGNOSTIC UNI LEFT W OR WO CAD Routine 02/03/2014 1:59 PM CDT Other (abnormal) findings on radiological examination of breast from Last 3 Months or Most Recently Relevant to Health Maintenance Results * MAMMO DIGITAL DIAG UNI LEFT (02/03/2014 1:59 PM CDT) Anatomical Region Laterality Modality Breast Left Mammography 02/03/2014 1:59 PM CDT Impressions 02/08/2014 1:43 PM CDT IMPRESSION: Technically successful ultrasound-guided core biopsy with tissue marker placement. Dictated from Qi Eaton Narrative 02/08/2014 1:43 PM CDT ADDENDUM: The pathology from the patient's recent left breast ultrasound-guided core biopsy reveals fibrocystic changes. Reactive changes, focal. These findings are benign and concordant. The patient will be informed of the above findings by the office of Dr. Gardner. ULTRASOUND-GUIDED CORE BIOPSY OF THE LEFT BREAST, TISSUE MARKER CLIP PLACEMENT, UNILATERAL DIGITAL MAMMOGRAM DATE: 02/03/14 HISTORY: Left breast mass. This was identified at an outside institution PROCEDURE AND FINDINGS: The risks and potential benefits of the procedure were discussed with the patient and written informed was obtained. After sterile preparation of the skin, 1% lidocaine without epinephrine was utilized for local anesthesia. A 10 gauge vacuum-assisted core biopsy needle was advanced through the lesion of interest using sonographic guidance. A total of 1 tissue core was obtained throughout the lesion. A tissue marker clip was then placed at the biopsy site under ultrasound guidance. Hemostasis was achieved. A sterile bandage and an ice pack were applied. A two-view left unilateral digital mammogram was obtained post procedure and this demonstrates that the tissue marker clip is in the expected position. The patient tolerated the procedure well and there was no evidence of immediate complication. The patient was given verbal as well as written postprocedure instructions prior to the release from the department. The tissue cores were submitted to surgical pathology in formalin for histological analysis. Procedure Note Jessica Khan MD - 02/08/2014 ADDENDUM: The pathology from the patient's recent left breast ultrasound-guided core biopsy reveals fibrocystic changes. Reactive changes, focal. These findings are benign and concordant. The patient will be informed of the above findings by the office of Dr. Gardner. ULTRASOUND-GUIDED CORE BIOPSY OF THE LEFT BREAST, TISSUE MARKER CLIP PLACEMENT, UNILATERAL DIGITAL MAMMOGRAM DATE: 02/03/14 HISTORY: Left breast mass. This was identified at an outside institution PROCEDURE AND FINDINGS: The risks and potential benefits of the procedure were discussed with the patient and written informed was obtained. After sterile preparation of the skin, 1% lidocaine without epinephrine was utilized for local anesthesia. A 10 gauge vacuum-assisted core biopsy needle was advanced through the lesion of interest using sonographic guidance. A total of 1 tissue core was obtained throughout the lesion. A tissue marker clip was then placed at the biopsy site under ultrasound guidance. Hemostasis was achieved. A sterile bandage and an ice pack were applied. A two-view left unilateral digital mammogram was obtained post procedure and this demonstrates that the tissue marker clip is in the expected position. The patient tolerated the procedure well and there was no evidence of immediate complication. The patient was given verbal as well as written postprocedure instructions prior to the release from the department. The tissue cores were submitted to surgical pathology in formalin for histological analysis. IMPRESSION IMPRESSION: Technically successful ultrasound-guided core biopsy with tissue marker placement. Dictated from Qi Eaton us Amanda Gardner MD MAMMO ORDERABLES Final Result from Last 3 Months or Most Recently Relevant to Health Maintenance Insurance [facility] [id number] Care Teams Armature Winder Relationship Specialty Start Date End Date Bettye Hall MD [address] [place] [address] PCP - General Family Practice 02/02/14
== END 2024-08-26 13:12 | disposition home or self-care (01) ==
LOC: ANHIMG 13:12
PROVIDERS: PCP Registered Nurse; Visit Provider Registered Nurse
DX: R92.8 Other abnormal and inconclusive findings on diagnostic imaging of breast (principal)
CPT/HCPCS: 76642; 77062; 77066; G0279

== ENCOUNTER 2025-05-27 01:46 | Day surgery (SDC) | payer OTHER, SELFPAY ==
[2025-05-06 11:35] VITALS: BMI 25.9
--- OUTSIDE RECORDS SUMMARY | 2025-05-27 01:50 | XMS_ITS | Clinical Summary ---
Author Organization [facility] Address [address] [place] [address] Phone Care Team Providers Care Fountain Brush Assembler Name Role Phone Bettye Hall MD Primary Care Provider Allergies No known active allergies Medications simvastatin (ZOCOR) 10 mg tablet Take 10 mg by mouth Daily LATE. Active Active Problems Patient Care Coordination No te Formatting of this note migh t be different from the original. Primary Care: Bettye Hall MD Referring Provider: Mckayla Calixto MD [address] [facility] [place] [address] Other: Problem Noted Date Diagnosed Date Other [...] 12:12 PM CDT Height 162.6 cm (5' 4) 02/03/2014 12:12 PM CDT Body Mass Index [...] exists OSTEOPOROSIS SCREENING 10/26/2023 INFLUENZA VACCINE (#1) 2025 RSV VACCINE (60+ or ) (1 - [...] Most Recently Relevant to Health Maintenance Insurance [facility] [employer] PPO [id number] Care Teams Fountain Brush Assembler Relationship Specialty Start Date End Date Bettye Hall MD [address] [place] [address] PCP - General Family Practice 02/02/14
--- OUTSIDE RECORDS SUMMARY | 2025-05-27 01:50 | XMS_ITS | Clinical Summary ---
Author Organization [facility] Address [address] [place] [address] Care Team Providers Care Dsp Engineer Name Role Phone Bettye Hall MD Primary Care Provider [phone] Source Comments [facility],non-[facility] Affiliates and Associated Physician Practices is amultiple site organization consisting of ambulatory clinics and hospital sitesin [place], [place], [place] and [place]. This disclosure is being madepursuant to the Care Everywhere program and may not contain all information available regarding this patient. Last updated 18.[facility] [employer] Social History Tobacco Use Types Packs/Day Years Used Date Smoking Tobacco: Never Assessed Comments Unknown Sex and Gender Information Value Date Recorded Sex Assigned at Not on file Legal Sex Female 7:46 PM MATERIALS TECH Gender Identity Not on file Sexual Orientation [...] SCREENING 1958 LIPID TESTING 1958 MAMMOGRAM 1960 HEPATITIS C SCREENING 10/20/1976 DTAP/TDAP/TD VACCINES (1 - Tdap) 1977 PNEUMOCOCCAL VACCINE 50+ (1 of 1 - PCV) 2008 ZOSTER VACCINE (1 of 2) 2008 DEPRESSION SCREENING 06/24/2024 COVID-19 VACCINE ( - 2024-2 6 season) 2025 INFLUENZA VACCINE (#1) 2025 Respiratory Syncytial Virus (RSV) Vaccine Pt: or [...] to complete this topic MENINGOCOCCAL (Group B) VACC INE SHARED DECISION-MAKING Aged Out No longer eligibl e based on patient's age to complete this topic MENINGOCOCCAL GROUPS A/C/Y/W VACCINE Aged Out No longer eligible b ased on patient's age to complete this topic Insurance [facility] Care Teams Dsp Engineer Relationship Specialty Start Date End Date Bettye Hall MD [address] [place] [address] PCP - General 10/04/17
--- OUTSIDE RECORDS SUMMARY | 2025-05-27 01:50 | XMS_ITS | Encounter Summary ---
Author Organization [facility] Address [address] [place] [address] Phone Care Team Providers Care Reviewer Sales Name Role Phone Bettye Hall MD Primary Care Provider [phone] Angelito Sibley MD Unavailable [phone] Herson Adkins MD Unavailable Gwen Lui Primary [...] on file Legal Sex Female 5:16 AM STRATEGY MANAGER Gender Identity Female 10/09/2019 10:54 AM CDT [...] COVID: Suspected 06/27/2021 06/28/2021 06/28/2021 10:45 AM STRATEGY MANAGER COVID: Suspected 06/28/2021 06/28/2021 06/28/2021 3:54 PM STRATEGY MANAGER COVID: Suspected 03/13/2023 03/13/2023 03/13/2023 11:00 PM CDT COVID: Suspected 10/26/2024 10/26/2024 10/26/2024 3:00 PM CDT documented as of this encounter Care Teams Reviewer Sales Relationship Specialty Start Date End Date Bettye Hall MD PCP - General 09/10/16 01/17/21 Gwen Lui PA [address] [place] [id number] PCP - General 01/18/21 Angelito Sibley MD Medical Oncologist/Comb Setter Medical Oncology 08/19/20 01/10/21 Herson Adkins MD Medical Oncologist/Comb Setter Medical Oncology 01/11/21 documented as of this encounter
--- OUTSIDE RECORDS SUMMARY | 2025-05-27 01:50 | XMS_ITS | Encounter Summary ---
Author Organization [facility] Address [facility] [facility] [place] [address] Care Team Providers Care Online Marketing Manager Name Role Phone Bettye Hall MD Primary Care Provider [phone] Encounter Details Date Type Department Care Team (Late st Contact Info) Description 01/31/[address] [facility] [address] [place] [address] Herson Adkins MD [address] DIV IM BONE MARROW TRANSPLANT, [address] [place] [address] Social History Tobacco Use Types Packs/Day Years Used Date Smoking Tobacco: Never Assessed Comments Unknown Sex and Gender Information Value Date Recorded Sex Assigned at Not on file Legal Sex Female 7:46 PM RESEARCH ASSOCIATE MOLECULAR BIOLOGY Gender Identity Not on file Sexual Orientation [...] - 5.20 x10E12/L 01/31/2021 3:[address] [facility] Hemoglobin 12.2 12.0 - 15.6 gm/dL 01/31/2021 3:[address] [facility] Hematocrit 36.2 35.9 - 45.5 % 01/31/2021 3:[address] [facility] MCV 101.4(H) 80.7 - 98.3 fl 01/31/2021 3:[address] [facility] MCH 34.2(H) 26.7 - 34.0 pg 01/31/2021 3:[address] [facility] MCHC 33.7 30.8 - 35.9 gm/dL 01/31/2021 3:[address] [facility] Platelet Count 177 153 - 416 x10E9/L 01/31/2021 3:[address] [facility] RDW-CV 14.7 12.1 - 14.9 % 01/31/2021 3:[address] [facility] MPV 10.3 9.4 - 12.9 fl 01/31/2021 3:[address] [facility] Neutrophils % 34.5(L) 44.0 - 73.0 % 01/31/2021 3:[address] [facility] Lymphocytes % 45.5(H) 20.0 - 43.0 % 01/31/2021 3:[address] [facility] Monocytes % 11.7 5.0 - 13.0 % 01/31/2021 3:[address] [facility] Eosinophils % 7.5(H) 0.0 - 6.0 % 01/31/2021 3:[address] [facility] Basophils % 0.4 0.0 - 2.0 % 01/31/2021 3:[address] [facility] Immature Granulocytes 0.4 0 - 1 % 01/31/2021 3:[address] [facility] Neutrophil Absolute 1.70(L) 2.01 - 7.14 x10E9/L 01/31/2021 3:[address] [facility] Lymphocytes Absolute 2.25 1.07 - 3.94 x10E9/L 01/31/2021 3:[address] [facility] Monocytes Absolute 0.58 0.26 - 1.07 x10E9/L 01/31/2021 3:[address] [facility] Eosinophils Absolute 0.37 0 - 0.47 x10E9/L 01/31/2021 3:[address] [facility] Basophils Absolute 0.02 0 - 0.08 x10E9/L 01/31/2021 3:[address] [facility] Immature Granulocytes Absolute 0.02 0.00 - 0.06 x10E9/L 01/31/2021 3:[address] [facility] nRBC Auto 0 /100 WBC 01/31/2021 3:[address] [facility] Blood BLOOD SPECIMEN / Unknown Venipuncture / Unknown 01/31/2021 11:19 AM CDT 01/31/2021 3:38 PM CDT us Herson Adkins MD LAB - HEMATOLOG Y ORDERABLES Final Result Performing Organization Address City/State/[facility] Co de Phone Number [facility] [address] [place] [address] documented in this encounter Visit Diagnoses Not on filedocumented in this encounter Care Teams Online Marketing Manager Relationship Specialty Start Date End Date Bettye Hall MD [address] [place] [address] PCP - General 10/04/17 documented as of this encounter
--- OUTSIDE RECORDS SUMMARY | 2025-05-27 01:50 | XMS_ITS | Continuity of Care Document ---
Author Organization [facility] [place] Address [address] [address] Care Team Providers Care Schedule Maker Name Role Phone FELIPE COX Primary Care Provider Assessment No assessment recorded. Plan of Treatment Reminders Order Date Submit Date Provider Last Modified By Organization Details Last Modified Time Details Appointments None record ed. Lab None record ed. Referral None record ed. Procedures None record ed. Surgeries None record ed. Imaging None record ed. Medication Orders None record ed. Patient TargetsNo targets recorded. Patient InstructionsNo instructions recorded. Reason for Referral None Reported. 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 zora: N Practi ce ID: 0001 Jamey lable Time: 09:00:00 AM Not Available [facility] 0 15:27:35 Screenin g for malignan t neoplasm of cervix Completed 201103/25/2012 Screenin g for malignan t neoplasm s of the cervix;R ecorded Elsewher e: No Locat ion: [facility] S ource: EHR Remotely Piloted Vehicle Controller zora: N Practi ce ID: 0001 Jamey lable Time: 09:00:00 AM Not Available [facility] 0 15:27:34 Microsco pic hematuri a [id number] Completed 201103/25/2012 MICROSCO PIC HEMATURI A;Record ed Elsewher e: No Locat ion: [facility] S ource: EHR Remotely Piloted Vehicle Controller zora: N Louiseti ce ID: 0001 Jamey lable Time: 09:00:00 AM Not Available [facility] 0 15:27:35 Speciali zed medical examinat ion Completed 201103/04/2012 Gynecolo gical Examinat ion;Garret rded Elsewher e: No Locat ion: [facility] S ource: EHR Remotely Piloted Vehicle Controller zora: N Practi ce ID: 0001 Jamey lable Time: 09:00:00 AM Not Available [facility] 0 15:27:35 Screenin g for malignan t neoplasm of rectum Completed 201103/04/2012 Screenin g for malignan t neoplasm s of the rectum;R ecorded Elsewher e: No Locat ion: [facility] S ource: EHR Remotely Piloted Vehicle Controller zora: N Louiseti ce ID: 0001 Jamey lable Time: 09:00:00 AM Not Available [facility] 0 15:27:36 Urinary tract infectio us disease 38695247 Active 2011 Urinary Tract Infectio n;Record ed Elsewher e: No Locat ion: [facility] S ource: EHR Remotely Piloted Vehicle Controller zora: N Practi ce ID: 0001 Jamey lable Time: 01:00:00 PM [facility] 0 15:27:35 Leukocyt osis 703078235 Active 2011 LEUKOCYT OSIS NOS;Garret rded Elsewher e: No Locat ion: [facility] S ource: EHR Remotely Piloted Vehicle Controller zora: N Practi ce ID: 0001 Jamey lable Time: 01:00:00 PM Not Available [facility] 0 15:27:35 Disorder of bone and articula r cartilag e 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 Active 2011 Disorder of bone and cartilag e, unspecif ied;Garret rded Elsewher e: No Locat ion: [facility] S ource: EHR Remotely Piloted Vehicle Controller zora: N Practi ce ID: 0001 Jamey lable Time: 01:00:00 PM Not Available [facility] 0 15:27:35 Screenin g for malignan t neoplasm of cervix Active 2013 Pap Smear;Pr actice ID: 0001 Not Available [facility] 0 15:27:34 Speciali zed medical examinat ion Active 2013 Routine gynecolo gical examinat ion;Prac erica ID: 0001 Not Available [facility] 0 15:27:34 Microsco pic hematuri a 840579439 Active 2015 Other microsco pic hematuri a;Practi ce ID: 0001 Not Available [facility] 0 15:[facility]:[address] Concept Active 2017 Encntr for general adult medical exam w/o abnormal findings ;Practic e ID: 0001 Not Available [facility] 0 15:27:34 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;Record ed Elsewher e: No Locat ion: [facility] S ource: EHR Remotely Piloted Vehicle Controller zora: N Practi ce ID: 0001 Jamey lable Time: 02:30:00 PM Not Available [facility] 0 15:27:36 Herpes zoster 1105618 Active 2017 Zoster without complica tions;Pr actice ID: 0001 Not Available [facility] 0 15:27:34 Screenin g for malignan t neoplasm of rectum Active 2018 Encounte r for screenin g for malignan t neoplasm of rectum;P ractice ID: 0001 Not Available [facility] 0 15:[facility]:[address] Concept Active 2018 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 Procedures Surgical History Date Name Laterality Status Provider Name and Address Organization Details Recorded Time 06/24/19 25 Date of Last Mammogram completed [facility] 05/17/2025 10:18:10 06/24/19 04 hemorrhoidectomy completed [facility] 05/17/2025 10:25:29 06/24/18 84 Tubal Ligation completed [facility] 05/17/2025 10:25:00 Breast Biopsy completed [facility] 05/17/2025 10:26:33 Imaging Results None recorded. Procedure Notes None recorded. Medical Equipment None Reported. Allergies No known drug allergies Medications Name Sig Start Date Stop Date Status Note LastModified by Organization Details LastModified Time promethaz ine-DM 6.25 mg-15 mg/5 mL oral syrup TAKE 5 ML BY MOUTH EVERY 4 HOURS NEEDED FOR COUGH 05/17 completed Not Available Not Available Not Available azithromy nicole 250 mg tablet TAKE 2 TABLETS BY MOUTH FOR 1 DAY THEN TAKE 1 TABLET BY MOUTH DAILY FOR 4 DAYS 05/13 completed Not Available Not Available Not Available Zyrtec 10 mg tablet take 1 tablet by oral route every day active Prescrib ed Elsewher e: Yes [facility] By: odilia Alonzo ncounter DateTime : 10/27/19 17 01:00:00 PM Not Available Not Available Not Available acyclovir 400 mg tablet TAKE 1 TABLET BY MOUTH THREE TIMES DAILY active Not Available Not Available No t Available aspirin 81 mg tablet,de layed release take 1 tablet by oral route every day 05/17 completed Prescrib ed Elsewher e: Yes [facility] odify By: ammj Alonzo ncounter DateTime : 11/12/19 19 01:30:00 PM Not Available Not Available Not Available amoxicill in 500 mg tablet take 1 tablet by oral route 3 times every day 05/17 completed Prescrib ed Elsewher e: No Locat ion: [facility] odify By: wayne dominguez DateTime : 11/15/19 19 10:53:15 AM Not Available Not Available Not Available amoxicill in 875 mg tablet TAKE 1 TABLET BY MOUTH TWICE DAILY UNTIL GONE 05/13 completed Not Available Not Available Not Available famotidin e 20 mg tablet active Not Available Not Available Not Available sodium bicarbona te 650 mg tablet TAKE 1 TABLET BY MOUTH TWICE DAILY ON A FULL STOMACH active Not Available Not Available No t Available amlodipin e 10 mg tablet TAKE 1 TABLET BY MOUTH DAILY active Not Available Not Available No t Available simvastat in 5 mg tablet take 1 tablet by oral route every day in the evening 05/17 completed Prescrib ed Elsewher e: Yes Loca tion: [facility] odify By: wayne dominguez DateTime : 04/16/20 11 09:00:00 AM Not Available Not Available Not Available hydrochlo rothiazid e 12.5 mg capsule TAKE 1 CAPSULE BY MOUTH DAILY active Not Available Not Available No t Available Valtrex 1 gram tablet take 1 Tablet by oral route every 8 hours for 7 days 12/22 completed Prescrib ed Elsewher e: No Locat ion: [facility] odify By: josé dominguez DateTime : 12/17/19 18 08:11:03 AM Not Available Not Available Not Available lidocaine HCl 2 % mucosal solution RINSE AND GARGLE 10 ML BY MOUTH OR THROAT EVERY 6 HOURS NEEDED FOR SORE THROAT. MAY MIX WITH 30 ML OF MYLANTA 05/17 completed Not Available Not Available Not Available Pepcid 40 mg tablet take 1 tablet by oral route every day at bedtime 11/04 completed Prescrib ed Elsewher e: Yes Loca tion: [facility] odify By: odilia dominguez DateTime : 10/27/19 17 01:00:00 PM Not Available Not Available Not Available pravastat in 20 mg tablet TAKE 1 TABLET BY MOUTH DAILY active Not Available Not Available No t Available methylpre dnisolone 4 mg tablets in a dose pack FOLLOW PACKAGE DIRECTIO NS 05/17 completed Not Available Not Available Not Available albuterol sulfate HFA 90 mcg/actua tion aerosol inhaler INHALE 2 PUFFS BY MOUTH EVERY 6 HOURS NEEDED FOR WHEEZING active Not Available Not Available No t Available fluticaso ne propionat e 50 mcg/actua tion nasal spray,nancy pension SHAKE LIQUID AND USE 2 SPRAYS IN EACH NOSTRIL DAILY active Not Available Not Available No t Available amoxicill in 875 mg-potass ium clavulana te 125 mg tablet TAKE 1 TABLET BY MOUTH TWICE DAILY 05/13 completed Not Available Not Available Not Available Bactrim DS 800 mg-160 mg tablet take 1 tablet by oral route every 12 hours 10/26 completed Prescrib ed Elsewher e: No Locat ion: [facility] odify By: odilia valentinunter DateTime : 03/24/20 12 01:00:00 PM Not Available Not Available Not Available ezetimibe 10 mg tablet TAKE 1 TABLET BY MOUTH DAILY active Not Available Not Available No t Available Immune Globulin active Not Available Not Available Not Available Revlimid 15 mg capsule take 1 capsule by oral route every day on days 1 through 21 of a 28 day treatmen t cycle 11/04 completed Prescrib ed Elsewher e: Yes Loca tion: [facility] odify By: odilia dominguez DateTime : 10/27/19 17 01:00:00 PM Not Available Not Available Not Available ProChambe r USE WITH ALBUTERO L INHALER 05/17 completed Not Available Not Available Not Available Xgeva 120 mg/1.7 mL (70 mg/mL) subcutane ous solution active Not Available Not Available Not Available Revlimid 2.5 mg capsule take 1 capsule by oral route every day 05/17 completed Prescrib ed Elsewher e: Yes [facility] By: tirso dominguez DateTime : 11/12/19 19 01:30:00 PM Not Available Not Available Not Available daratumum ab active Not Available Not Available Not Available Xhance 93 mcg/actua tion breath activated aerosol active Not Available Not Available Not Available Sutab 1.479-0.1 88-0.225 gram tablet TAKE PER PACKAGE DIRECTIO NS active Not Available Not Available No t Available Vitals Date Recorded Body height Body mass index (BMI) Body weight Systolic And Diastolic Provider Name and Address Organization Details Last Updated DateTime 05/17/2025 162.56 cm 25.9 kg/m2 75974.45 g 125/76 mm[Hg] Mary Roman [facility] 05/17/2025 10:13:30 Social History Question Answer Notes LastModified by Organizat ion Details LastModified Time Do You Have An Advance Directive? No Information n ot available 05/17/2025 Are You Blind Or Do You Have Difficulty Seeing? No Information n ot available 05/17/2025 What Is Your Level Of Caffeine Consumption? Occasional Information not available 05/17/2025 How Much Tobacco Do You Chew? None Information not available 05/17/2025 In The 14 Days Before Symptom Onset, Have You Had Close Contact With A Laboratory-confirm ed COVID-19 While That Case Was Ill? No Information n ot available 05/17/2025 In The 14 Days Before Symptom Onset, Have You Had Close Contact With A Person Who Is Under Investigation For COVID-19 While That Person Was Ill? No Information not available 05/17/2025 Have You Been To An Area Known To Be High Risk For COVID-19? No Information not available 05/17/2025 Are You Deaf Or Do You Have Serious Difficulty Hearing? No Information not available 05/17/2025 What Is The Highest Grade Or Level Of School You Have Completed Or The Highest Degree You Have Received? SN93796-4 Information not available 05/17/2025 Are There Any Guns Present In Your Home? Yes Information not available 05/17/2025 Do You Use Protection During Sex? No Information not available 05/17/2025 Do You Use Your Seat Belt Or Car Seat Routinely? Yes Information not available 05/17/2025 Do You Have Smoke And Carbon Monoxide Detectors In Your Home? Yes Information not available 05/17/2025 How Much Tobacco Do You Smoke? No Information not available 05/17/2025 Do You Use Sunscreen Routinely? Yes Information not available 05/17/2025 Have You Used IV Drugs? No Information not available 05/17/2025 Sex: Unknown Functional Status Question Answer Note LastModified by Organizat ion Details LastModified Time Do you use any illicit or recreational drugs? No Information not available 05/17/2025 What is your level of alcohol consumption? None Information not available 05/17/2025 Are you able to walk independently without assistance or assistive devices? 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 Occasional Information not available 05/17/2025 Mental Status Question Answer Note LastModified by Organization D etails LastModified Time Do you feel stressed (tense, restless, nervous, or anxious, or unable to sleep at night)? [id number] Information not available 05/17/2025 Family History Relationship Description Onset Age of this Age Resolved Age Notes LastModified by Organization Details LastModified Time Brother Malignant neoplasm of lung Not available 2024 10:21:56 Sister Malignant neoplasm of lung Not available 2024 10:21:56 Sister Malignant neoplasm of colon Not available 2024 10:23:06 Sister Malignant neoplasm of breast Not available 2024 10:23:18 Sister Malignant neoplasm of liver Not available 2024 10:23:44 Sister Neoplasm of brain Not available 2024 10:23:57 Father Cerebrovascu lar accident Not available 10:22:13 Mother Diabetes mellitus Not available 2024 10:22:34 Mother Congestive heart failure Not available 2024 10:22:49 Maternal Aunt Diabetes mellitus Not available 2024 10:22:34 Notes:Brother: Cancer, lung Father: Stroke Maternal aunt: Diabetes mellitus, Ovarian cancer Mother: Asthma, Congenital heart disease, Diabetes mellitus, EMPHYSEMA Sister: Cancer, breast, Cancer, colon Medical History Condition Response Allergies (Food, seasonal, environmental ) N Other N Breast Cancer N Drug/Latex Allergies/Reactions N Blood Transfusion N Dermatologic Disorders N Lung Disease N Defects or Inherited Disease N Breast Problem Y Gestational Diabetes N Hematologic disorders N Anesthesia Complications N History of STI N Deep Vein Thrombosis N Polycystic ovary syndrome N Anxiety Disorder N Autoimmune disease N Arthritis N Infertility N Polyps N Acid Reflux (GERD) N History of abnormal pap Y Cancer Y Stroke N Varicosities N Neurologic/Epilepsy N Endometriosis N High Cholesterol Y Headaches N Fibromyalgia N Kidney Disease N Heart Problems N Kidney or Bladder Problems N Thyroid Problems N GI Problems N Eating Disorder N Anemia N Art (IVF or FET) N Psychiatric Illness N Ovarian Cancer N Diabetes N Pulmonary (TB, Asthma) N Hepatitis/Liver Disease N No Past Medical History N Eczema N Urinary Tract Infection N Abuse/Domestic Violence N Asthma Y Trauma/Violence N Depression/ depression N Heart Disease N Pre-Eclampsia N Hypertension Y Osteoporosis N Thrombophilias N Gynecological History Statement/Question Response Abnormal Pap Y Date of Last Mammogram 06/24/2024 N STIs/STDs N HPV Vaccine N Current Control Method Menopause Age at First Child 15 If Post Menopausal, Age at Menopause Date of Last Colonoscopy Most Recent Bone Density Sexually Active? N Menses Monthly N Age of first menstrual cycle 10 Date of Last Pap Smear Sexual Problems? N LMP Unknown N Obstetrics History GPAL:G 2 P 2 0 0 2 Type Value Full Term 2 Living 2 Total 2 Past Encounters Encounter ID Performer Location Encounter Start Date Encounter Closed Date Diagnosis/Indication Diagnosis SNOMED-CT Code Diagnosis ICD10 Code Diagnosis IMO Codes Diagnosis Note [id number] Ted Farr MD [place] [address] [address] 05/17/2025 09:24:08 05/19/2025 16:16:48 Prolapse of female genital organs 95397391 N81.9 [id number] This patient is a 64-year-ol d female presents for symptoms of pelvic organ prolapse. She feels a bulge at the opening of the vagina at various times of the day. She reports it being soft. It is not cartilagin ous. She reports urinary symptoms. She has some frequency. She does not feel like she empties entirely. She denies any pain or bleeding. She denies any abnormal vaginal discharge. Exam-there is a grade 3 cystocele, grade 2 descent of the apex of the vagina and no rectocele. Normal vulva, no lesions of the vagina. Normal-odalys earing cervix. Discussed her exam with her. Discussed prolapse and general. Discussed the treatment of pelvic organ prolapse. We will refer her to Dr. Causey for urogynecol ogical evaluation and considerat ion of surgical treatment. Patient declines pessary. Spent over 30 minutes on her care in total. Health Concerns Section Related Observation LastModified by Organization Detai ls LastModified Time None Recorded Concern Status LastModified by Organization Details LastModified Time None Recorded Payers Encounter Date Sequence Insurance Name Policy Number Policy Jean Covered Member ID Jean Member ID Guarantor Name 05/17/2025 1 [employer] [facility] [id number] Veronica Escobar [id number] 1 Veronica Escobar Notes Date Note Type Note Provider Name and Address Organization Details Recorded Time 05/17/2025 text/html This patient is a 64-year-old female presents for symptoms of pelvic organ prolapse. She feels a bulge at the opening of the vagina at various times of the day. She reports it being soft. It is not cartilaginous. She reports urinary symptoms. She has some frequency. She does not feel like she empties entirely. She denies any pain or bleeding. She denies any abnormal vaginal discharge. Exam-there is a grade 3 cystocele, grade 2 descent of the apex of the vagina and no rectocele. Normal vulva, no lesions of the vagina. Normal-appearing cervix. Discussed her exam with her. Discussed prolapse and general. Discussed the treatment of pelvic organ prolapse. We will refer her to Dr. Causey for urogynecological evaluation and consideration of surgical treatment. Patient declines pessary. Spent over 30 minutes on her care in total. Ted Farr MD [address], [place], [address], [facility] 05/19/2025 15:06:42 OBGyn Episode No OBEpisode recorded.
--- OUTSIDE RECORDS SUMMARY | 2025-05-27 01:50 | XMS_ITS | Data Portability ---
Author Organization [facility] [place] Address [address] [place] [address] Care Team Providers Care Chief Marketing Officer Name Role Phone FELIPE COX Primary Care [...] IUD;Garret rded Elsewher e: No Locat ion: [facility] S ource: EHR Machine Operator zora: N Practi ce ID: 0001 Jamey lable Time: 09:00:00 AM Not Available [facility] 0 15:27:35 Screenin g for malignan t neoplasm of cervix Completed 201103/25/2012 Screenin g for malignan t neoplasm s of the cervix;R ecorded Elsewher e: No Locat ion: [facility] S ource: EHR Machine Operator zora: N Practi ce ID: 0001 Jamey lable Time: 09:00:00 AM Not Available [facility] 0 15:27:34 Microsco pic hematuri a [id number] Completed 201103/25/2012 MICROSCO PIC HEMATURI A;Record ed Elsewher e: No Locat ion: [facility] S ource: EHR Machine Operator zora: N Louiseti ce ID: 0001 Jamey lable Time: 09:00:00 AM Not Available [facility] 0 15:27:35 Speciali zed medical examinat ion Completed 201103/04/2012 Gynecolo gical Examinat ion;Garret rded Elsewher e: No Locat ion: [facility] S ource: EHR Machine Operator zora: N Practi ce ID: 0001 Jamey lable Time: 09:00:00 AM Not Available [facility] 0 15:27:35 Screenin g for malignan t neoplasm of rectum Completed 201103/04/2012 Screenin g for malignan t neoplasm s of the rectum;R ecorded Elsewher e: No Locat ion: [facility] S ource: EHR Machine Operator zora: N Louiseti ce ID: 0001 Jamey lable Time: 09:00:00 AM Not Available [facility] 0 15:27:36 Urinary tract infectio us disease 50247559 Active 2011 Urinary Tract Infectio n;Record ed Elsewher e: No Locat ion: [facility] S ource: EHR Machine Operator zora: N Practi ce ID: 0001 Jamey lable Time: 01:00:00 PM Not Available [facility] 0 15:27:35 Leukocyt osis 524059580 Active 2011 LEUKOCYT OSIS NOS;Garret rded Elsewher e: No Locat ion: [facility] S ource: EHR Machine Operator zora: N Practi ce ID: 0001 Jamey lable Time: 01:00:00 PM Not Available [facility] 0 15:27:35 Disorder of bone and articula r cartilag e 444889769 Active 2011 Disorder of bone and cartilag e, unspecif ied;Garret rded Elsewher e: No Locat ion: [facility] S ource: EHR Machine Operator zora: N Practi ce ID: 0001 Jamey lable Time: 01:00:00 PM Not Available [facility] 0 15:27:35 Screenin g for malignan t neoplasm of cervix Active 2013 Pap Smear;Pr actice ID: 0001 Not Available [facility] 0 15:27:34 Speciali zed medical examinat ion Active 2013 Routine gynecolo gical examinat ion;Prac erica ID: 0001 Not Available [facility] 0 15:27:34 Microsco pic hematuri a 440055328 Active 2015 Other microsco pic hematuri a;Practi ce ID: 0001 Not Available [facility] 0 15:27:[address] Concept Active 2017 Encntr for general adult medical exam w/o abnormal findings ;Practic e ID: 0001 Not Available [facility] 0 15:27:34 Atrophic vaginiti s 85288320 Active 2017 Postmeno pausal atrophic vaginiti s;Record ed Elsewher e: No Locat ion: [facility] S ource: EHR Machine Operator zora: N Practi ce ID: 0001 Jamey lable Time: 02:30:00 PM Not Available [facility] 0 15:27:36 Herpes zoster 2971746 Active 2017 Zoster without complica tions;Pr actice ID: 0001 Not Available [facility] 0 15:27:34 Screenin g for malignan t neoplasm of rectum Active 2018 Encounte r for screenin g for malignan t neoplasm of rectum;P ractice ID: 0001 Not Available [facility] 0 15:27:[address] Concept Active 2018 Encntr for slurry blender exam (general ) (routine ) w/o abn findings ;Practic e ID: 0001 Not Available [facility] 0 15:27:34 Evaluati on finding Active 2018 Hematuri a, unspecif ied;Prac erica ID: 0001 Not Available [facility] 0 15:27:34 Problem Notes None recorded. Procedures Surgical History Date Name Laterality Status Provider Name and Address Organization Details Recorded Time 06/24/19 25 Date of Last Mammogram completed [facility] 05/17/2025 10:18:10 06/24/19 04 hemorrhoidectomy completed [facility] 05/17/2025 10:25:29 06/24/18 84 Tubal Ligation completed [facility] 05/17/2025 10:25:00 Breast Biopsy completed [facility] 05/17/2025 10:26:33 Imaging Results None recorded. [...] Prescrib ed Elsewher e: Yes [facility] By: odilia Alonzo ncounter DateTime : 10/27/19 17 01:00:00 PM Not Available Not Available Not Available acyclovir 400 mg tablet TAKE 1 TABLET BY MOUTH THREE TIMES DAILY active Not Available Not Available No t Available aspirin 81 mg tablet,de layed release take 1 tablet by oral route every day 05/17 completed Prescrib ed Elsewher e: Yes Loca tion: [facility] M odify By: ammj Alonzo ncounter DateTime : 11/12/19 19 01:30:00 PM Not Available Not Available Not Available amoxicill in 500 mg tablet take 1 tablet by oral route 3 times every day 05/17 completed Prescrib ed Elsewher e: No Locat ion: [facility]ir alonzo [facility] odify By: wayne dominguez DateTime : 11/15/19 [...] Elsewher e: Yes Loca tion: [facility]abbir alonzo [facility] odify By: wayne dominguez DateTime : 04/16/20 11 09:00:00 AM Not Available Not Available Not Available hydrochlo rothiazid e 12.5 mg capsule TAKE 1 CAPSULE BY MOUTH DAILY active Not Available Not Available No t Available Valtrex 1 gram tablet take 1 Tablet by oral route every 8 hours for 7 days 12/22 completed Prescrib ed Elsewher e: No Locat ion: Shabbir alonzo [facility] odify By: josé dominguez DateTime : 12/17/19 [...] Prescrib ed Elsewher e: Yes Loca tion: [facility] odify By: odilia dominguez DateTime : 10/27/19 [...] Elsewher e: No Locat ion: Shabbir alonzo [facility] odify By: odilia valentinunter DateTime : 03/24/20 [...] Elsewher e: Yes Loca tion: Shabbir alonzo [facility] odify By: odilia dominguez DateTime : 10/27/19 [...] Prescrib ed Elsewher e: Yes [facility]ify By: tirso dominguez DateTime : 11/12/19 [...] Updated DateTime 05/17/2025 162.56 cm 25.9 kg/m2 07360.45 g 125/76 mm[Hg] Mary Roman [facility] 05/17/2025 10:13:30 Social History Question Answer [...] Or The Highest Degree You Have Received? AT07452-4 Information not available 05/17/2025 Are There Any [...] not available 05/17/2025 What is your occupation? [employer] Information not available 05/17/2025 What is your exercise level? Occasional Information not available 05/17/2025 Mental Status Question Answer Note LastModified by Organization D etails LastModified Time Do you feel stressed (tense, restless, nervous, or anxious, or unable to sleep at night)? [id number] Information not available 05/17/2025 Family History Relationship [...] ICD10 Code Diagnosis IMO Codes Diagnosis Note [id number] Ted Farr MD [place] [address] [address] 05/17/2025 09:24:08 05/19/2025 16:16:48 Prolapse of female genital organs [id number] N81.9 [id number] This patient is a 64-year-ol d female [...] by Organization Details LastModified Time None Recorded Advance Directives Directive N: Payers Insurance Date Sequence Insurance Name Policy Number Policy Jean Covered Member ID Jean Member ID Guarantor Name 05/14/2025 1 [employer] [id number] Veronica Escobar [id number] 1 Veronica Escobar 05/19/2025 1 [employer] - [employer] (PPO) [id number] Veronica F Luz [id number] Veronica Escobar Notes Date Note Type [...] in total. Ted Farr MD [address], [place], [address], [facility] 05/19/2025 15:06:42 OBGyn Episode Ob Episode Information Episode Created Date Number of Fetuses Patient Bloodtype Patient rh Status Prepregnancy Weight lbs Domestic Partner Domestic Partner Phone Father Name Information Systems Planner Status 05/17/20 25 1 CLOSED Fetus Data First Name Last Name Admitted to NICU Weight (g) Sex Living Outcome Pediatric Complications Fetus ID Race Codes Race Delivery Type M Full Term [id number] Vaginal Delivery Mike Calculation Initial Mike Date Initial Exam Date Initial Exam Provider Initial Ultrasound Date Last Menstrual Period Date Ultra Sound Weeks Gestation 0 Eighteen To Twenty Week Mike Update Ultra Sound Date Fundal Height At Umbil Quickening Date Ultra Sound Latest Weeks Gestation Final Mike Confirmed By Final Mike Confirmed Date Final Mike Date Ultra Sound Latest Days Gestation 0 0 Menstrual History Last Menstrual Date Menses Monthly On Bcp Conception Prior Menses Frequency Hcg Plus Date Menarche Onset Age Delivery Information Delivery Date Delivery Type Labor Anesthesia Weeks Gestation Incision Type Labor Labor Length Hrs Delivered By Post Complications Tubal Sterilization Discharge Date Comments 6 Discharge Information Feeding Method Contraceptive Method Maternal HG B and HCT Levels Ob Episode Information Episode Created Date Number of Fetuses Patient Bloodtype Patient rh Status Prepregnancy Weight lbs Domestic Partner Domestic Partner Phone Father Name Information Systems Planner Status 05/17/20 1 CLOSED Fetus Data First Name Last Name Admitted to NICU Weight (g) Sex Living Outcome Pediatric Complications Fetus ID Race Codes Race Delivery Type F Full Term [id number] Vaginal Delivery Mike Calculation Initial Mike Date Initial Exam Date Initial Exam Provider Initial Ultrasound Date Last Menstrual Period Date Ultra Sound Weeks Gestation 0 Eighteen To Twenty Week Mike Update Ultra Sound Date Fundal Height At Umbil Quickening Date Ultra Sound Latest Weeks Gestation Final Mike Confirmed By Final Mike Confirmed Date Final Mike Date Ultra Sound Latest Days Gestation 0 0 Menstrual History Last Menstrual Date Menses Monthly On Bcp Conception Prior Menses Frequency Hcg Plus Date Menarche Onset Age Delivery Information Delivery Date Delivery Type Labor Anesthesia Weeks Gestation Incision Type Labor Labor Length Hrs Delivered By Post Complications Tubal Sterilization Discharge Date Comments 3 Discharge Information Feeding Method Contraceptive Method Maternal HG B and HCT Levels
--- OUTSIDE RECORDS SUMMARY | 2025-05-27 01:50 | XMS_ITS | Clinical Summary ---
Author Organization [facility] ja[facility] Address [address] [place] [id number] Phone Care Team Providers Care Food Service Agent Name Role Phone Gwen Lui Primary Care Provider [phone] Allergies No known active allergies Medications cetirizine (ZyrTEC) 10 MG tablet 1 daily 6 Active Calcium Carbonate-Vitam in D (CALCIUM PLUS VITAMIN D) 500-50 MG-UNIT capsule 1 dialy 0 8 Active omeprazole (PriLOSEC) [address] capsule 1 daliy 0 8 Active fluticasone (FLONASE) 50 MCG/ACT nasal spray SHAKE LQ AND U 2 SPRAYS IEN QD 0 9 Active famotidine (PEPCID) 20 MG tablet 1 Active Daratumumab-Hya luronidase[facility] [id number] MG-UT/15ML solution 1 Active acyclovir (ZOVIRAX) 400 MG tablet 1 Active aspirin EC 325 MG EC tablet 1 Active al mag oxide-diphenhyd rAMINE-nystatin (MAGIC MOUTHWASH) suspension SWISH AND SWALLOW 10 ML BY MOUTH EVERY 4 HOURS NEEDED FOR MUCOSITIS 1 Active amLODIPine (NORVASC) 2.5 MG tablet Take 1 tablet (2.5 mg total) by mouth 1 (one) time each day 90 tablet 3 2 Active immune globulin, human, (FLEBOGAMMA) infusion Infuse into a venous catheter Active Denosumab (Xgeva) 120 MG/1.7ML solution Inject 120 mg under the skin Active dexamethasone (DECADRON) 4 MG tablet 2 Active ezetimibe (ZETIA) 10 MG tablet TAKE 1 TABLET(10 MG) BY MOUTH EVERY DAY 30 tablet 5 2 Active pravastatin (PRAVACHOL) 20 MG tablet TAKE 1 TABLET(20 MG) BY MOUTH EVERY DAY 30 tablet 5 2 Active Active Problems Problem Noted Date Diagnosed Date Diarrhea 03/12/2022 Essential hypertension 10/11/2021 Hypogammaglobulinemia 07/07/2021 History of vaccination 05/24/2021 Hypercalcemia 03/14/2021 Multiple myeloma in remission 07/21/2018 Stage 3b chronic kidney disease 04/24/2017 Immunizations Immunization Administration Dates Next Due Hepatitis B 07/02/2019,05/28/2019 [...] of Binge Drinking Not on file 10/22 Comments Unknown Sex and Gender Information Value Date Recorded Sex Assigned at Not on file Legal Sex Female 9:38 AM MST Gender Identity Not on file Sexual Orientation [...] 2:48 PM CDT Height 165.1 cm (5' 5) 03/12/2022 2:48 PM CDT Body Mass Index 23.8 03/12/2022 2:48 PM CDT Plan of Treatment Health Maintenance Due Date Last Done Comments COVID-19 Vaccine (3 - 2024-2 6 season) 2025 02/03/2021, 01/13/2021 Influenza Vaccine (#1) 2025 , 03/31/2020, 03/31/2020, Additional history exists Pneumococcal PPSV23/PCV13 65 + Years / Low and Medium Risk (3 of 3 - PCV20 or PCV21) 05/04/2026 05/04/2021, 11/05/2016, 09/10/2016 Insurance [facility] Care Teams Food Service Agent Relationship Specialty Start Date End Date Gwen Lui [address] [place] [address] [phone] PCP - General Family Medicine 11/07/20
--- OUTSIDE RECORDS SUMMARY | 2025-05-27 01:50 | XMS_ITS | Encounter Summary ---
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 [employer] Legal Sex Female 4:58 PM [employer] Gender Identity Not on file Sexual Orientation Not on file documented as of this encounter Plan of Treatment Not on file documented as of this encounter Visit Diagnoses Not on filedocumented in this encounter Additional Health Concerns Infection Onset Date Last Indicated Resolved Time COVID-19 Rule Out 11/02/2020 11/02/2020 11/02/2020 10:50 AM CDT COVID-19 Rule Out 11/02/2020 11/02/2020 11/03/2020 2:27 PM CDT COVID-19 Rule Out 05/24/2021 05/24/2021 05/24/2021 2:21 PM [employer] COVID-19 Rule Out 03/07/2022 03/07/2022 03/08/2022 1:39 PM CDT COVID-19 Rule Out 03/10/2024 03/10/2024 03/10/2024 3:18 PM CDT COVID-19 Rule Out 08/04/2024 08/04/2024 08/04/2024 3:38 PM [employer] Influenza - Seasonal 08/04/2024 08/04/2024 025 12:33 AM [employer] Assessment Noted Time PHQ-9 Depression Total Score: 0 07/15/19 20 11:57 AM [employer] documented as of this encounter Care Teams Risk Advisor Relationship Specialty Start Date End Date Gwen Lui APNP [address] [place] [address] PCP - General NURSE PRACTITIONER 05/25/19 documented as of this encounter
--- OUTSIDE RECORDS SUMMARY | 2025-05-27 01:50 | XMS_ITS | Clinical Summary ---
Author Organization [facility] Address [address] [place] [address] Care Team Providers Care Gastrointestinal Technician Name Role Phone Felipe Lui Primary Care Provider Allergies No known active allergies Medications Calcium-Vitamin D3 (CALCIUM PLUS VITAMIN D3) 600-500 MG-UNIT Cap 8 Active Cetirizine HCl (ZYRTEC OR) Take by mouth daily. Active acyclovir 400 MG tablet Take 1 tablet (400 mg total) by mouth 3 (three) times daily. 1 Active daratumumab 1800 mg-hyaluronidase 57798 units-[facility] [id number] MG-UT/15ML Solution injection 1 Active prochlorperazine 10 MG tablet Take by mouth every [...] mg total) by mouth daily. 3 Active hydroCHLOROthiaz danyelle (MICROZIDE) 12.5 MG capsule Take 1 capsule (12.5 mg total) by mouth daily. 3 Active sodium bicarbonate 650 MG tablet TAKE 1 TABLET BY MOUTH TWICE DAILY ON A FULL STOMACH 4 Active fluticasone propionate (FLONASE) 50 MCG/ACT nasal sprayIndications :Seasonal allergies shake liquid and use 2 sprays in each nostril daily 48 g 1 4 Active famotidine (PEPCID) 20 MG tabletIndication s:Gastroesophage al reflux disease without esophagitis TAKE 1 TABLET(20 MG) BY MOUTH TWICE DAILY 180 tablet 3 5 Active Active Problems Problem Noted Date Diagnosed Date COVID-19 vaccine series completed 05/24/2021 Hypercalcemia 03/14/2021 Chronic bilateral low back pain without sciatica 07/19/2019 Hyperlipemia 05/25/2019 Multiple myeloma in remission 05/25/2019 Stage 3 chronic kidney disease 05/25/2019 Osteoporosis without current pathological fractu re [...] 11/09/2020 Cough 07/19/2019 11/09/2020 Chronic kidney disease, stage 4 (severe) 05/25/2019 11/09/2020 Encounters Date Type Department Care Team Description 04/15/2025 Scan [facility] Scanned, [facility] 04/13/2025 Scan HEALTH INFO [facility] Scanned, [facility] 03/22/2025 Results Follow-Up [facility] [address] [phone] Felipe Lui H, APNP XR HAND RT 3V, URINALYSIS AUTO DIP, LIPID PANEL, TSH W/REFLEX 03/19/2025 1:00 PM CDT Office Visit [facility] [address] [phone] Felipe Lui H, APNP Physical; Hand Pain (Pt c/o intermittent pain in ring finger of right hand. ) 03/19/2025 Travel from Last 3 Months Immunizations Immunization Administration Dates Next Due Flucelvax 2 YRS+ (Multi-Dose Vial) 03/19/2019 Hepatitis B (Generic: Adult) 07/02/2019,05/28/20 19 Influenza (Generic) 03/30/2021,02/22/2019,2015 Influenza Adult (Generic) 03/21/2023,11/2021,03/30/2021,2019,03/31/2020,03/13/2018,03/13/2018,1 ,03/28/2017,03/22/2016, 013 PFIZER COVID-19 (ORIGINAL FORMULATION, PURPLE CAP) mRNA, LNP-S, PF, 30 MCG/0.3 ML DOSE 02/03/2021,01/13/2021 Pneumococcal (Pneumovax 23) 11/05/2016 Pneumococcal (Prevnar 13) 05/04/2021,09/10/2016 Shingrix 07/19/2018,02/15/2018 Tdap (Adacel) 11/26/2016 Tdap (Historical Only-select from [employer] glass) 05/25/2019 Zoster (Zostavax) 97067 Unt/0.65Ml 02/15/2018 Family History Medical History Relation Comments Cancer Brother 1 Lung cancer Diabetes Brother 1 Early Brother 1 Cancer Brother 2 Diabetes Brother 3 Skin cancer Cancer Father skin Stroke Father CHF Mother COPD Mother Diabetes Mother Emphysema Mother Lung Disease Mother Cancer Sister 1 Breast cancer Hypertension Sister 1 Cancer Sister 2 Lung cancer, bra in cancer Cancer Sister 3 Breast cancer Relation Status Comments Brother 1 Brother 2 Alive Brother 3 Alive Father Mother Sister 1 Sister 2 Sister 3 Social History Tobacco Use Types Packs/Day Years Used Date Smoking Tobacco: Never Smokeless Tobacco: Never Tobacco Cessation:Counseling Given: No Alcohol Use Standard Drinks/Week Comments Never 0 (1 standard drink = 0.6 oz pur e alcohol) AUDIT-C Answer Date Recorded Frequency of Alcohol Consumption Never 05/25/2019 Average Number of Drinks Not on file 019 Frequency of Binge Drinking Not on file 07/2018 PHQ-2 Answer Date Recorded Patient Health Questionnaire-2 Score 0 03/19/2025 Comments No Sex and Gender Information Value Date Recorded Sex Assigned at Female 08/04/2024 1:33 PM CUT OUT WORKER Legal Sex Female 4:58 PM CUT OUT WORKER Gender Identity Not on file Sexual Orientation Not on file Last Filed Vital Signs Vital Sign Reading Time Taken Comments Blood Pressure 122/66 03/19/2025 1:08 PM CDT Pulse 82 03/19/2025 1:08 PM CDT Temperature 36.7 C (98.1 F) 03/19/2025 1:08 PM CDT Respiratory Rate 16 03/19/2025 1:08 PM CDT Oxygen Saturation 96% 03/19/2025 1:08 PM CDT Inhaled Oxygen Concentration - - Weight 67.5 kg (148 lb 12.8 oz) 03/19/2025 1:08 PM CDT Height 162.6 cm (5' 4) 03/19/2025 1:08 PM CDT Body Mass Index 25.54 03/19/2025 1:08 PM CDT Plan of Treatment Health Maintenance Due Date Last Done Comments Colorectal Cancer Screening Colonoscopy (10 Years) 1960 COVID-19 Vaccine (3 - Pfizer risk series) 03/03/2021 02/03/2021, 01/13/2021 Influenza Adult (#1) 2025 03/21/2023, 03/29/2022, 03/30/2021, Additional history exists Mammogram Screening 08/26/2025 08/26/2024, 01/20/2024, 12/05/2023, Additional history exists RSV Immunization or 60+ Years (1 - Risk 60-74 years 1-dose series) 03/19/2026 Postponed fro m 2018 (Patient Refused) Pneumococcal Vaccine: 50+ Years (3 of 3 - PCV20 or PCV21) 05/04/2026 05/04/2021, 11/05/2016, 09/10/2016 DTaP, Tdap and Td Vaccines (3 - Td or Tdap) 05/25/2029 05/25/2019, 11/26/2016 Zoster Vaccines Completed 07/19/2018, 06/25, 02/15/2018, Additional history exists Hepatitis C Completed 04/26/2020 Dexa Scan (General) Completed 09/01/2024, 09/01/2024, 09/17/2023, Additional history exists PHQ-2 (Physician [place]) Completed 03/19/2025 Hepatitis A Vaccines Aged Out No long er eligible based on patient's age to complete this topic Meningococcal B Vaccine Aged Out No l onger eligible based on patient's age to complete this topic Meningococcal Vaccine Aged Out No siddhartha shiloh eligible based on patient's age to complete this topic RSV Immunizations Under 20 Months Aged Out No longer eligible based on patient's age to complete this topic Procedures Procedure Name Priority Date/Time Associated Diagnosis Comments URINALYSIS AUTO DIP Routine 03/27/2025 9 :33 AM CDT Primary hypertension TSH W/REFLEX Routine 03/27/2025 9:32 AM CDT BMI 25.0-25.9,adult Mixed hyperlipidemia LIPID PANEL Routine 03/27/2025 9:32 AM CDT Routine medical exam BMI 25.0-25.9,adult Mixed hyperlipidemia XR HAND RT 3V Routine 03/19/2025 1:54 PM CDT Finger pain, right MAMMOGRAM GENERIC (SCAN ORDER) 08/26/2024 HEPATITIS C ANTIBODY Routine 04/26/2020 12:55 PM CUT OUT WORKER Need for hepatitis C screening test from Last 3 Months or Most Recently Relevant to Health Maintenance Results * (ABNORMAL) URINALYSIS AUTO DIP (03/27/2025 9:33 AM CDT) SPECIFIC GRAVITY (U) 1.016 1.005 - 1.03 [facility] 1 PH (U) 6.0 5.0 - 7.5 [facility] 1 COLOR (U) Yellow Yellow [facility] 1 APPEARANCE SEMEN Clear Clear [facility] 1 LEUK ESTERASE (U) 2+(A) Negative [facility] 1 PROTEIN (U) Trace Negative/T [facility] 1 GLUCOSE (U) Negative Negative [facility] 1 KETONES MG/DL (U) Negative Negative [facility] 1 BLOOD (U) Negative Negative [facility] 1 BILIRUBIN (U) Negative Negative [facility] 1 UROBILINOGEN 0.2 0.2 - 1.0 mg/dL [facility] 1 NITRITES Negative Negative [facility] 1 URINE SPECIMEN OBTAINED BY CLEAN CATCH PROCEDURE / Unknown 03/27/2025 9:33 AM CDT 03/27/2025 Narrative [facility] - 03/28/2025 6:42 AM CDT Performed at: [address] [place] [id number] Geological Specialist: Brian Holcomb PhD, Phone: [phone] Felipe CARNEY URINE ORDERABLES Final Resu lt Performing Organization Address [facility] de Phone Number [place] [id number] [place] [address] [facility] 1 * TSH W/REFLEX (03/27/2025 9:32 AM CDT) Pathologist [facility] TSH 2.520 0.450 - 4.50 uIU/mL [facility] 1 03/27/2025 9:32 AM CDT 03/27/2025 Narrative [facility] - 03/28/2025 8:09 AM CDT Performed at: [address] [place] [id number] Geological Specialist: Brian Holcomb PhD, Phone: [phone] Felipe CARNEY LABORATORY Final Resul t Performing Organization Address [facility] de Phone Number [facility] [address] [place] [address] [facility] 1 * (ABNORMAL) LIPID PANEL (03/27/2025 9:32 AM CDT) CHOLESTEROL 164 100 - 199 mg/dL [facility] 1 TRIGLYCERIDES 188(H) 0 - 149 mg/dL [facility] 1 HDL 53 >39 mg/dL [facility] 1 VLDL CALCULATION 32 5 - 40 mg/dL [facility] 1 LDL (CALCULATED) 79 0 - 99 mg/dL [facility] 1 03/27/2025 9:32 AM CDT 03/27/2025 Narrative [facility] - 03/28/2025 8:09 AM CDT Performed at: [address] [id number] Geological Specialist: Brian Holcomb PhD, Phone: [phone] us Felipe Lui APNP LABORATORY Final Resul t [facility] [address] [place] [address] [facility] 1 * XR HAND RT 3V (03/19/2025 1:54 PM CDT) Anatomical Region Laterality Modality Hand Radiographic Matilde ging 03/19/2025 3:22 PM CDT Impressions 03/19/2025 4:44 PM CDT IMPRESSION: 1. No acute osseous abnormality. 2. Mild first carpometacarpal joint osteoarthritis. The attending radiologist has reviewed the image(s) and agrees with the content of this report. Ordered By: FELIPE LUI Interpreted By: Jose Luis Rivera MD, 03/19/2025 3:22 PM Narrative 03/19/2025 4:44 PM CDT [facility] - [address] [address] XR HAND RT 3V: 03/19/2025 1:48 PM CLINICAL INDICATION: Right fourth digit pain. Patient reports intermittent pain. No known acute injury. COMPARISON: None TECHNIQUE: PA, lateral, oblique views of right hand FINDINGS: No radiographic evidence of acute fracture. Mild first carpometacarpal joint osteophytes and subchondral sclerosis. The bones are diffusely demineralized. Alignment is anatomic. Procedure Note Gabriel York MD - 03/19/2025 [facility] [place] [address] XR HAND RT 3V: 03/19/2025 1:48 PM CLINICAL INDICATION: Right fourth digit pain. Patient reports intermittentpain. No known acute injury. COMPARISON: None TECHNIQUE: PA, lateral, oblique views of right hand FINDINGS: No radiographic evidence of acute fracture. Mild first carpometacarpaljoint osteophytes and subchondral sclerosis. The bones are diffuselydemineralized. Alignment is anatomic. IMPRESSION: 1. No acute osseous abnormality. 2. Mild first carpometacarpal joint osteoarthritis. The attending radiologist has reviewed the image(s) and agrees with thecontent of this report. Ordered By: FELIPE LUI Interpreted By: Jose Luis Rivera MD, 03/19/2025 3:22 PM Felipe Lui APNP GENERAL IMAGING Final Resul t * MAMMOGRAM GENERIC (SCAN ORDER) (08/26/2024) Anatomical Region Laterality Modality Other 08/26/2024 [facility] Scanned SCANNING Final Resu lt * HEPATITIS C ANTIBODY (04/26/2020 12:55 PM CUT OUT WORKER) HEPATITIS C AB <0.1 0.0 - 0.9 s/co ratio [facility] 1 Comment: Negative: < 0.8 Indeterminate: 0.8 - 0.9 Positive: > 0.9 The CDC recommends that a positive HCV antibody result be followed up with a HCV Nucleic Acid Amplification test (426201). 04/26/2020 12:5 5 PM CUT OUT WORKER 04/26/2020 Narrative [facility] - 04/27/2020 8:14 AM CUT OUT WORKER Performed at: - [facility] [address] [id number] Geological Specialist: Brian Holcomb PhD, Phone: [phone] Felipe CARNEY LABORATORY Final Resul t [facility] [address] [place] [address] [facility] 1 from Last 3 Months or Most Recently Relevant to Health Maintenance Insurance [employer] Care Teams Gastrointestinal Technician Relationship Specialty Start Date End Date Felipe Lui APNP [address] [place] [id number] PCP - General NURSE PRACTITIONER 05/25/19
--- OUTSIDE RECORDS SUMMARY | 2025-05-27 01:50 | XMS_ITS ---
Author Organization [facility] Address [address] [place] [address] Care Team Providers Care Specialist Employee Labor Relations Name Role Phone Herson Adkins MD Unavailable Gwen Lui Primary Care Provider + Active Problems Problem Noted Date Diagnosed Date Left shoulder pain 09/10/2024 Diarrhea 03/12/2022 Essential hypertension 10/11/2021 Multiple myeloma [...] - Myeloma* Plan Start Date:02/20/2021 Plan Provider:Herson Adkins, MD Linked Problems Multiple myeloma in relapse (HCC) Treatment Medications Current Day (Day 1 , Cycle 52 - Planned for 06/08/2025) daratumumab-fihj (DARZALEX F ASPRO) (DARZALEX FASPRO)daratumumab-fihj (DARZALEZ [...] not having achieved remission (HCC)Hypogammaglobulinemia Treatment Medications immune globulin (GAMUNEX-C,G AMMAKED) 10 % Past Treatment and Therapy Plans Oncology Chemotherapy Treatment Plan Name Start Date Discontinue Date Treatment Medications Discontinue Reason Plan Provider Cycles Lenalidomide Maintenance 28 Day Cycles - Myeloma 9 02/07/2021 lenalidomide (REVLIMID) Progressive Disease UAngelito stacy MD 12 of 12 cycles started Oncology Supportive Care Therapy Plan Plan Name Start Date Discontinue Date Treatment [...]
--- OUTSIDE RECORDS SUMMARY | 2025-05-27 01:50 | XMS_ITS | Clinical Summary ---
Author Organization [facility] Address [address] [place] [address] Care Team Providers Care Ball Winder Name Role Phone Herson Adkins MD Unavailable Gwen Lui Primary Care Provider + Allergies No known active allergies Medications calcium carbonate-vitam in D3 600 mg(1,500mg) -500 unit capsule Take by mouth 10/24/19 18 Active cetirizine (ZyrTEC) 10 mg tablet 08/23/19 20 Active fluticasone propionate (FLONASE) 50 mcg/actuation nasal spray SHAKE LQ AND U 2 SPRAYS IEN D 04/19/20 20 Active famotidine (PEPCID) 20 mg tablet 01/03/20 21 Active ezetimibe (ZETIA) 10 mg tablet 03/27/20 21 Active pravastatin (PRAVACHOL) 20 mg tablet 10/24/19 22 Active amLODIPine (NORVASC) 10 mg tablet Take 1 tablet (10 mg total) by mouth daily 01/11/20 23 Active denosumab (Xgeva) 120 mg/1.7 mL (70 mg/mL) injection Inject 1.7 mL (120 mg total) under the skin Active denosumab (Xgeva) 120 mg/1.7 mL (70 mg/mL) injection Inject 1.7 mL (120 mg total) under the skin Active hydroCHLOROthia zide (MICROZIDE) 12.5 mg capsule Take 1 capsule (12.5 mg total) by mouth daily 01/17/20 23 Active immune globulin (FLEBOGAMMA) infusion Infuse into a venous catheter Active sodium bicarbonate 650 mg tablet TAKE 1 TABLET BY MOUTH TWICE DAILY ON A FULL STOMACH 12/19/19 23 Active prochlorperazin e (COMPAZINE) 10 mg tabletIndicatio ns:Multiple myeloma in relapse (HCC) TAKE 1 TABLET(10 MG) BY MOUTH EVERY 6 HOURS NEEDED FOR NAUSEA OR VOMITING 30 tablet 3 07/22/19 24 Active diphenhydrAMINE (BENADRYL) 25 mg capsuleIndicati ons:Multiple myeloma in relapse (HCC) Take 1 tablet/capsule (25 mg total) by mouth once for 1 dose Take one to three hours prior to each daratumumab dose. 1 tablet/caps ule 07/02/19 25 Active lidocaine viscous (XYLOCAINE) 2 % solutionIndicat ions:Sore throat Apply 10 mL to the mouth or throat every 6 (six) hours as needed (sore throat) May mix with 30 ml of Mylanta 100 mL 10/27/19 25 Active promethazine-DM (PROMETHAZINE-D M) 1.25-3 mg/mL syrupIndication s:Acute lower respiratory infection Take 5 mL by mouth every 4 (four) hours as needed for cough 120 mL 11/04/19 25 Active potassium chloride ER (KLOR-CON) 20 mEq CR tabletIndicatio ns:Multiple myeloma in relapse (HCC) Take 1 tablet (20 mEq total) by mouth once for 1 dose 1 tablet 12/16/19 25 Active acyclovir (ZOVIRAX) 400 mg tabletIndicatio ns:Multiple myeloma in relapse (HCC) TAKE 1 TABLET BY MOUTH THREE TIMES DAILY 270 tablet 05/18/20 25 Active acyclovir (ZOVIRAX) 400 mg tabletIndicatio ns:Multiple myeloma in relapse (HCC) TAKE 1 TABLET BY MOUTH THREE TIMES DAILY 270 tablet 03/12/20 25 025 Discontinued Active Problems Problem Noted Date Diagnosed Date [...] Encounters Date Type Department Care Team Description 05/17/[address] [facility] Medicine Bone Marrow Transplant [address] [place] [phone] Piper Norton RMA 05/11/2025 8:00 AM HOST AND HOSTESS - 05/11/2025 11:34 AM HOST AND HOSTESS Hospital Encounter [facility] ([facility]) [address] [place] [phone] Millicent Marrero RN Multiple myeloma not having achieved remission (HCC) (Primary Dx); Multiple myeloma in relapse (HCC); Multiple myeloma, remission status unspecified (HCC); Hypogammaglobulinem ia Discharge Disposition: Discharge to home or self care 05/06/[address] [facility] [address] [phone] Herson Lawrence MD 05/05/[address] [facility] Medicine Oncology [address] [place] [phone] Tresa Gaviria DNP 04/13/2025 10:30 AM CDT Infusion [facility] - Infusion [address] [place] [address] Multiple myeloma in relapse (HCC) (Primary Dx) 04/13/2025 9:00 AM CDT Office Visit [facility] Transplant [address] [place] [phone] Tresa Gaviria DNP Multiple myeloma, remission status unspecified (HCC) (Primary Dx); Multiple myeloma in relapse (HCC) 04/13/2025 8:00 AM CDT Lab [facility] - Lab Collection [address] [place] [address] Multiple myeloma in relapse (HCC); Multiple myeloma, remission status unspecified (HCC) 03/16/2025 12:00 PM CDT Infusion [facility] - Infusion [address] [place] [address] Multiple myeloma, remission status unspecified (HCC) 03/16/2025 9:30 AM CDT Infusion [facility] [place] - [facility]fusion [address] [place] [address] Multiple myeloma not having achieved remission (HCC) (Primary Dx); Multiple myeloma in relapse (HCC); Hypogammaglobulinem ia 03/16/2025 8:30 AM CDT Lab [facility] - Lab Collection [address] [place] [address] Multiple myeloma in relapse (HCC) 03/10/2025 Orders Only [facility] [address] [place] [phone] Tresa Gaviria DNP from Last 3 Months Immunizations Immunization Administration [...] on file Legal Sex Female 5:16 AM HOST AND HOSTESS Gender Identity Female 10/09/2019 10:54 AM CDT Sexual Orientation Not on file Last Filed Vital Signs Vital Sign Reading Time Taken Comments Blood Pressure 128/71 05/11/2025 10:53 AM HOST AND HOSTESS Pulse 69 05/11/2025 10:53 AM HOST AND HOSTESS Temperature 36.8 C (98.2 F) 05/11/2025 10:53 AM HOST AND HOSTESS Respiratory Rate 18 05/11/2025 10:53 AM HOST AND HOSTESS Oxygen Saturation 99% 05/11/2025 10:53 AM HOST AND HOSTESS Inhaled Oxygen Concentration - - Weight 69.1 kg (152 lb 4.8 oz) 05/11/2025 8:19 A M HOST AND HOSTESS Height 162.6 cm (5' 4) 10/26/2024 2:08 PM CDT Body Mass Index 26.14 10/26/2024 2:08 PM CDT Plan of Treatment Health Maintenance Due Date Last Done Comments Colon Cancer Screening-Colonoscopy 1960 Depression Screening 1960 Hepatitis C Screening 1960 Breast Cancer Screening-Mammogram 01/02/2015 014, 03/03/2012 Covid-19 Vaccine (3 - Pfizer risk series) 03/03/2021 02/03/2021, 01/13/2021 Fall Risk Assessment 01/18/2022 01/18/2021 Well Visit 65+ 10/26/2023 Influenza Vaccine (#1) 2025 3, 03/29/2022, 03/30/2021, Additional history exists Pneumococcal vaccine 65+ (3 of 3 - PCV20 or PCV21) 05/04/2026 05/04/2021, 11/05/2016, 09/10/2016 Osteoporosis Screening-Bone Density Scan 09/01/2026 09/01/2024, 09/17/2023, 04/24/2022, Additional history exists DTaP/Tdap/Td Vaccine (3 - Td or Tdap) 05/25/2029 05/25/2019, 11/26/2016 Zoster Vaccine Completed 07/19/2018, 01/23, 02/15/2018, Additional history exists Hepatitis B Screening Completed 07/02/2019, 019 Cervical Cancer Screening Discontinued 2023, 09/05/2023, 04/19/2020 Procedures Procedure Name Priority Date/Time Associated Diagnosis Comments EGFR STAT 05/11/2025 8:19 AM HOST AND HOSTESS Multiple myeloma in relapse (HCC) DIFFERENTIAL AUTO Routine 05/11/2025 8:1 9 AM HOST AND HOSTESS Multiple myeloma in relapse (HCC) CBC WITH AUTO DIFFERENTIAL Routine 05/11/2025 8:19 AM HOST AND HOSTESS Multiple myeloma in relapse (HCC) COMPREHENSIVE METABOLIC PANEL STAT 05/11/2025 8:19 AM HOST AND HOSTESS Multiple myeloma in relapse (HCC) URIC ACID Routine 05/11/2025 8:19 AM HOST AND HOSTESS Multiple myeloma in relapse (HCC) EGFR Routine 04/13/2025 8:42 AM CDT Multiple myeloma, remission status unspecified (HCC) DIFFERENTIAL AUTO Routine 04/13/2025 8:4 2 AM CDT Multiple myeloma, remission status unspecified (HCC) CBC WITH AUTO DIFFERENTIAL Routine 04/13/2025 8:42 AM CDT Multiple myeloma, remission status unspecified (HCC) COMPREHENSIVE METABOLIC PANEL Routine 04/13/2025 8:42 AM CDT Multiple myeloma, remission status unspecified (HCC) IGA Routine 04/13/2025 8:42 AM CDT Multiple myeloma, remission status unspecified (HCC) IGG Routine 04/13/2025 8:42 AM CDT Multiple myeloma, remission status unspecified (HCC) IGM Routine 04/13/2025 8:42 AM CDT Multiple myeloma, remission status unspecified (HCC) IMMUNOGLOBULIN FREE LIGHT CHAINS Routine 04/13/2025 8:42 AM CDT Multiple myeloma, remission status unspecified (HCC) LACTATE DEHYDROGENASE Routine 04/13/2025 8:42 AM CDT Multiple myeloma, remission status unspecified (HCC) PROTEIN ELECTROPHORESIS, WITH REFLEX, SERUM Routine 04/13/2025 8:42 AM CDT Multiple myeloma, remission status unspecified (HCC) IMMUNOTYPING Routine 04/13/2025 8:42 AM CDT Multiple myeloma, remission status unspecified (HCC) EGFR STAT 03/16/2025 8:55 AM CDT Multiple myeloma in relapse (HCC) DIFFERENTIAL AUTO Routine 03/16/2025 8:5 5 AM CDT Multiple myeloma in relapse (HCC) CBC WITH AUTO DIFFERENTIAL Routine 03/16/2025 8:55 AM CDT Multiple myeloma in relapse (HCC) COMPREHENSIVE METABOLIC PANEL STAT 03/16/2025 8:55 AM CDT Multiple myeloma in relapse (HCC) URIC ACID Routine 03/16/2025 8:55 AM CDT Multiple myeloma in relapse (HCC) DEXA AXIAL AND FOREARM BONE DENSITY SCAN Schedule Routine, Read Routine (OP Routine) 09/01/2024 11:15 AM CDT Osteoporosis without current pathological fracture, unspecified osteoporosis type from Last 3 Months or Most Recently Relevant to Health Maintenance Results * (ABNORMAL) eGFR (05/11/2025 8:19 AM HOST AND HOSTESS) eGFR 44(L) >=60 mL/min/1. 73 m2 Comment: Interpretive Data [...] interpretive data was last reviewed 2021. Blood 05/11/2025 8:19 AM HOST AND HOSTESS 05/11/2025 8:37 AM HOST AND HOSTESS us Herson Adkins MD LAB BLOOD ORDER EMILY Final Result NITHIN [facility] [place] [address] * (ABNORMAL) Differential, auto (05/11/2025 8:19 AM HOST AND HOSTESS) Neutrophil abs 3.55 1.50 - 6.50 K/cumm Imm gran abs 0.03 0.00 - 0.10 K/cumm [facility] Lymphocyte abs 3.73(H) 0.80 - 3.30 K/cumm [facility] Monocyte abs 0.75 0.20 - 0.80 K/cumm [facility] Eosinophil abs 0.13 0.00 - 0.50 K/cumm [facility] Basophil abs 0.02 0.00 - 0.10 K/cumm [facility] Neutrophil pct 43.3 % [facility] Comment: Interpretive Data Percent cell count reference ranges are not reported, since discordance with absolute values may lead to misinterpretation of CBC data. Current Interpretive Data was last revised on 2017. Imm gran pct 0.4 % [facility] Comment: Interpretive Data Percent cell count reference ranges are not reported, since discordance with absolute values may lead to misinterpretation of CBC data. Current Interpretive Data was last revised on 2017. Lymphocyte pct 45.4 % [facility] Comment: Interpretive Data Percent cell count reference ranges are not reported, since discordance with absolute values may lead to misinterpretation of CBC data. Current Interpretive Data was last revised on 2017. Monocyte pct 9.1 % [facility] Comment: Interpretive Data Percent cell count reference ranges are not reported, since discordance with absolute values may lead to misinterpretation of CBC data. Current Interpretive Data was last revised on 2017. Eosinophil pct 1.6 % [facility] Comment: Interpretive Data Percent cell count reference ranges are not reported, since discordance with absolute values may lead to misinterpretation of CBC data. Current Interpretive Data was last revised on 2017. Basophil pct 0.2 % [facility] Comment: Interpretive Data Percent cell count reference ranges are not reported, since discordance with absolute values may lead to misinterpretation of CBC data. Current Interpretive Data was last revised on 2017. Blood 05/11/2025 8:19 AM HOST AND HOSTESS 05/11/2025 8:37 AM HOST AND HOSTESS Herson Adkins MD LAB BLOOD ORDER EMILY Final Result [facility] [place] [address] * CBC with auto differential (05/11/2025 8:19 AM HOST AND HOSTESS) Pathologist [facility] WBC 8.21 3.80 - 9.90 K/cumm Hgb 13.3 11.9 - 15.5 g/dL [facility] Hct 38.2 35.6 - 45.5 % [facility] Plt 175 150 - 400 K/cumm [facility] MPV 10.0 9.1 - 12.3 fL [facility] RBC 4.11 3.90 - 5.20 M/cumm [facility] MCV 92.9 81.3 - 96.4 fL [facility] MCH 32.4 27.1 - 33.3 pg [facility] MCHC 34.8 32.3 - 35.7 g/dL [facility] RDW CV 14.2 11.1 - 14.9 % [facility] RDW SD 47.6 35.7 - 48.1 fL [facility] NRBC abs 0.00 0.00 - 0.01 K/cumm [facility] Blood 05/11/2025 8:19 AM HOST AND HOSTESS 05/11/2025 8:37 AM HOST AND HOSTESS us Herson Adkins MD LAB BLOOD ORDER EMILY Final Result [facility] [place] [address] * Uric acid (05/11/2025 8:19 AM HOST AND HOSTESS) Pathologist [facility] Uric acid 6.8 2.5 - 7.0 mg/dL Blood 05/11/2025 8:19 AM HOST AND HOSTESS 05/11/2025 8:37 AM HOST AND HOSTESS Herson Adkins MD LAB BLOOD ORDER EMILY Final Result [facility] One [facility] [place] [address] * (ABNORMAL) Comprehensive metabolic panel (05/11/2025 8:19 AM HOST AND HOSTESS) Sodium 145 135 - 145 mmol/L Potassium, pl 3.5 3.3 - 4.9 mmol/L [facility] Chloride 107 97 - 110 mmol/L [facility] CO2 26 22 - 32 mmol/L [facility] Anion gap 12 2 - 15 mmol/L [facility] BUN 16 6 - 25 mg/dL [facility] Creatinine 1.33(H) 0.60 - 1.10 mg/dL [facility] Glucose 101 70 - 199 mg/dL [facility] Comment: Interpretive Data Fasting glucose >/= 126 [...] interpretive data was last revised 2022. Calcium 9.0 8.5 - 10.3 mg/dL [facility] Bilirubin, total 0.3 0.1 - 1.2 mg/dL [facility] Protein, pl 6.5 6.5 - 8.5 g/dL [facility] Albumin 4.4 3.5 - 5.0 g/dL [facility] Alk phos 47 40 - 130 Units/L [facility] ALT 24 7 - 45 Units/L [facility] AST 21 10 - 45 Units/L [facility] Blood 05/11/2025 8:19 AM HOST AND HOSTESS 05/11/2025 8:37 AM HOST AND HOSTESS Herson Adkins MD LAB BLOOD ORDER EMILY Final Result NITHIN WRIGHT Noemi [facility] [place] [address] * Immunotyping, serum with interpretation (04/13/2025 8:42 AM CDT) Immunosubtraction Please see comment Comment: SMALL IGG KAPPA PARAPROTEIN Reviewed and signed by Karen Baker MD, PhD 04/14/2025 Blood 04/13/2025 8:42 AM CDT 04/13/2025 10:34 AM CDT Herson Adkins MD LAB BLOOD ORDER EMILY Final Result Performing Organization Address City/[facility] Co de Phone Number NITHIN WRIGHT Noemi [facility] [place] [address] * (ABNORMAL) eGFR (04/13/2025 8:42 AM CDT) eGFR 36(L) >=60 mL/min/1. 73 m2 Comment: Interpretive Data [...] interpretive data was last reviewed 2021. Blood 04/13/2025 8:42 AM CDT 04/13/2025 8:59 AM CDT Herson Adkins MD LAB BLOOD ORDER EMILY Final Result [facility] [place] [address] * (ABNORMAL) Differential, auto (04/13/2025 8:42 AM CDT) Neutrophil abs 3.56 1.50 - 6.50 K/cumm Comment:Testing performed by : [facility], [address] [place] [phone] Lymphocyte abs 3.90(H) 0.80 - 3.30 K/cumm NITHIN WRIGHT Comment:Testing performed by : [facility], [address] [place] [phone] Monocyte abs 0.84(H) 0.20 - 0.80 K/cumm NITHIN WRIGHT Comment:Testing performed by : [facility], [address] [place], [place] [phone] Eosinophil abs 0.21 0.00 - 0.50 K/cumm NITHIN WRIGHT Comment:Testing performed by : [facility], [address] [place] [phone] Basophil abs 0.02 0.00 - 0.10 K/cumm NITHIN [facility] Comment:Testing performed by : [facility], [address] [place], [place] [phone] Neutrophil pct 41.7 % [facility] Comment: Interpretive Data Percent cell count reference ranges are not reported, since discordance with absolute values may lead to misinterpretation of CBC data. Current Interpretive Data was last revised on 2017. Testing performed by: [facility], [address] [place] [phone] Lymphocyte pct 45.7 % [facility] Comment: Interpretive Data Percent cell count reference ranges are not reported, since discordance with absolute values may lead to misinterpretation of CBC data. Current Interpretive Data was last revised on 2017. Testing performed by: [facility], [address] [place] [phone] Monocyte pct 9.8 % NITHIN WRIGHT Comment: Interpretive Data Percent cell count reference ranges are not reported, since discordance with absolute values may lead to misinterpretation of CBC data. Current Interpretive Data was last revised on 2017. Testing performed by: [facility], [address] [place] [phone] Eosinophil pct 2.5 % NITHIN WRIGHT Comment: Interpretive Data Percent cell count reference ranges are not reported, since discordance with absolute values may lead to misinterpretation of CBC data. Current Interpretive Data was last revised on 2017. Testing performed by: [facility], [address] [place] [phone] Basophil pct 0.3 % NITHIN WRIGHT Comment: Interpretive Data Percent cell count reference ranges are not reported, since discordance with absolute values may lead to misinterpretation of CBC data. Current Interpretive Data was last revised on 2017. Testing performed by: [facility], [address] [place] [phone] Blood 04/13/2025 8:42 AM CDT 04/13/2025 8:56 AM CDT Herson Adkins MD LAB BLOOD ORDER EMILY Final Result NITHIN WRIGHT [facility] [place] [address] * (ABNORMAL) Immunoglobulin free light chains (04/13/2025 8:42 AM CDT) [place]/Lambda ratio [facility] 1.46 0.26 - 1.65 Comment: Interpretive Data The Binding Site FreeLite assay procedure was used. Results from different manufacturers or methods may not be comparable. Serial testing should be performed using the same methods and instrumentation. Current Interpretive Data was last revised on 2023. [place] free light chain [facility] 0.60 0.33 - 1.94 mg/dL NITHIN WRIGHT Comment: Interpretive Data The Binding Site FreeLite assay procedure was used. Results from different manufacturers or methods may not be comparable. Serial testing should be performed using the same methods and instrumentation. Current Interpretive Data was last revised on 2023. Lambda free light chain [facility] 0.41(L) 0.57 - 2.63 mg/dL NITHIN WRIGHT Comment: Interpretive Data The Binding Site FreeLite assay procedure was used. Results from different manufacturers or methods may not be comparable. Serial testing should be performed using the same methods and instrumentation. Current Interpretive Data was last revised on 2023. Blood 04/13/2025 8:42 AM CDT 04/13/2025 10:34 AM CDT Herson Adkins MD LAB BLOOD ORDER EMILY Final Result NITHIN WRIGHT [facility] [place] [address] * CBC with auto differential (04/13/2025 8:42 AM CDT) WBC 8.54 3.80 - 9.90 K/cumm Comment:Testing performed by : [facility], [address] [place] [phone] Hgb 13.2 11.9 - 15.5 g/dL NITHIN WRIGHT Comment:Testing performed by : [facility], [address] [place] [phone] Hct 37.7 35.6 - 45.5 % NITHIN WRIGHT Comment:Testing performed by : [facility], [address] [place] [phone] Plt 197 150 - 400 K/cumm NITHIN WRIGHT Comment:Testing performed by : [facility], [address] [place] [phone] MPV 7.5 6.8 - 10.4 fL NITHIN WRIGHT Comment:Testing performed by : [facility], [address] [place], [place] [phone] RBC 4.06 3.90 - 5.20 M/cumm NITHIN WRIGHT Comment:Testing performed by : [facility], [address] [place], [place] [phone] MCV 92.9 81.3 - 96.4 fL NITHIN WRIGHT Comment:Testing performed by : [facility], [address] [place], [place] [phone] MCH 32.5 27.1 - 33.3 pg NITHIN WRIGHT Comment:Testing performed by : [facility], [address] [place], [place] [phone] MCHC 35.0 32.3 - 35.7 g/dL NITHIN WRIGHT Comment:Testing performed by : [facility], [address] [place], [place] [phone] RDW CV 14.1 11.1 - 14.9 % NITHIN WRIGHT Comment:Testing performed by : [facility], [address] [place], [place] [phone] NRBC abs 0.00 0.00 - 0.01 K/cumm [facility] Comment:Testing performed by : [facility], [address] [place], [place] [phone] Blood 04/13/2025 8:42 AM CDT 04/13/2025 8:56 AM CDT Herson Adkins MD LAB BLOOD ORDER EMILY Final Result NITHIN [facility] One [facility] [place] [address] * Protein electrophoresis with reflex, serum with interpretation (04/13/2025 8:42 AM CDT) Protein, sr 6.8 6.2 - 8.2 g/dL Albumin 4.2 3.2 - 5.0 g/dL NITHIN [facility] Alpha-1 globulin 0.3 0.2 - 0.4 g/dL NITHIN [facility] Alpha-2 globulin 0.8 0.5 - 1.0 g/dL [facility] Beta-1 globulin 0.4 0.3 - 0.6 g/dL [facility] Beta-2 globulin 0.4 0.2 - 0.6 g/dL [facility] Gamma globulin 0.6 0.5 - 1.7 g/dL [facility] SPEP interp Please see comment [facility] Comment: Possible abnormal restricted peak in gamma region Electrophoretic pattern appears similar to previous sample 02-17-25 See immunotyping for further information Reviewed and signed by Karen Baker MD, PhD 04/14/2025 Blood 04/13/2025 8:42 AM CDT 04/13/2025 10:34 AM CDT Herson Adkins MD LAB BLOOD ORDER EMILY Final Result Performing Organization Address City/[facility]/ZIP Co de Phone Number [facility] [place] [address] * Lactate dehydrogenase (LD) (04/13/2025 8:42 AM CDT) Lactate dehydrogenase (LDH) 187 100 - 250 Units/L Blood 04/13/2025 8:42 AM CDT 04/13/2025 8:59 AM CDT Herson Adkins MD LAB BLOOD ORDER EMILY Final Result [facility] [place] [address] * (ABNORMAL) IgA (04/13/2025 8:42 AM CDT) Immunoglobulin A 69(L) 70 - 400 mg/dL Blood 04/13/2025 8:42 AM CDT 04/13/2025 9:16 AM CDT Herson Adkins MD LAB BLOOD ORDER EMILY Final Result [facility] [place] [address] * IgM (04/13/2025 8:42 AM CDT) [facility] Immunoglobulin M 46 40 - 230 mg/dL Blood 04/13/2025 8:42 AM CDT 04/13/2025 9:16 AM CDT Herson Adkins MD LAB BLOOD ORDER EMILY Final Result Performing Organization Address City/[facility] Co de Phone Number [facility] [place] [address] * IgG (04/13/2025 8:42 AM CDT) [facility] Immunoglobulin G 729 700 - 1,600 mg/dL Blood 04/13/2025 8:42 AM CDT 04/13/2025 9:16 AM CDT Herson Adkins MD LAB BLOOD ORDER EMILY Final Result Performing Organization Address City[facility] Co de Phone Number [facility] [place] [address] * (ABNORMAL) Comprehensive metabolic panel (04/13/2025 8:42 AM CDT) [facility] Sodium 144 135 - 145 mmol/L Potassium, pl 3.6 3.3 - 4.9 mmol/L [facility] Chloride 107 97 - 110 mmol/L [facility] CO2 28 22 - 32 mmol/L [facility] Anion gap 9 2 - 15 mmol/L [facility] BUN 24 6 - 25 mg/dL [facility] Creatinine 1.57(H) 0.60 - 1.10 mg/dL [facility] Glucose 92 70 - 199 mg/dL [facility] Comment: Interpretive Data Fasting glucose >/= 126 [...] Calcium 9.8 8.5 - 10.3 mg/dL [facility] Bilirubin, total 0.4 0.1 - 1.2 mg/dL [facility] Protein, pl 7.0 6.5 - 8.5 g/dL [facility]ER [facility] Albumin 4.3 3.5 - 5.0 g/dL [facility] Alk phos 51 40 - 130 Units/L [facility] ALT 16 7 - 45 Units/L [facility] AST 15 10 - 45 Units/L [facility] Blood 04/13/2025 8:42 AM CDT 04/13/2025 8:59 AM CDT Herson Adkins MD LAB BLOOD ORDER EMILY Final Result [facility] [place] [address] * (ABNORMAL) eGFR (03/16/2025 8:55 AM CDT) eGFR 37(L) >=60 mL/min/1. 73 m2 Comment: Interpretive Data [...] interpretive data was last reviewed 2021. Blood 03/16/2025 8:55 AM CDT 03/16/2025 9:09 AM CDT us Herson Adkins MD LAB BLOOD ORDER EMILY Final Result NITHIN WRIGHT [facility] [place] [address] * (ABNORMAL) Differential, auto (03/16/2025 8:55 AM CDT) Neutrophil abs 5.77 1.50 - 6.50 K/cumm Comment:Testing performed by : [facility], [address] [place] [phone] Lymphocyte abs 4.05(H) 0.80 - 3.30 K/cumm NITHIN WRIGHT Comment:Testing performed by : [facility], [address] [place] [phone] Monocyte abs 1.00(H) 0.20 - 0.80 K/cumm NITHIN BJ Comment:Testing performed by : [facility], [address] [place] [phone] Eosinophil abs 0.18 0.00 - 0.50 K/cumm CERHERBIE BJ Comment:Testing performed by : [facility], [address] [place] [phone] Basophil abs 0.04 0.00 - 0.10 K/cumm CERHERBIE BJ Comment:Testing performed by : [facility], [address] [place] [phone] Neutrophil pct 52.2 % NITHIN WRIGHT Comment: Interpretive Data Percent cell count reference ranges are not reported, since discordance with absolute values may lead to misinterpretation of CBC data. Current Interpretive Data was last revised on 2017. Testing performed by: [facility], [address] [place] [phone] Lymphocyte pct 36.7 % CERHERBIE WRIGHT Comment: Interpretive Data Percent cell count reference ranges are not reported, since discordance with absolute values may lead to misinterpretation of CBC data. Current Interpretive Data was last revised on 2017. Testing performed by: [facility], [address] [place] [phone] Monocyte pct 9.1 % CERHERBIE WRIGHT Comment: Interpretive Data Percent cell count reference ranges are not reported, since discordance with absolute values may lead to misinterpretation of CBC data. Current Interpretive Data was last revised on 2017. Testing performed by: [facility], [address] [place] [phone] Eosinophil pct 1.6 % CERHERBIE WRIGHT Comment: Interpretive Data Percent cell count reference ranges are not reported, since discordance with absolute values may lead to misinterpretation of CBC data. Current Interpretive Data was last revised on 2017. Testing performed by: [facility], [address] [place] [phone] Basophil pct 0.4 % CERHERBIE WRIGHT Comment: Interpretive Data Percent cell count reference ranges are not reported, since discordance with absolute values may lead to misinterpretation of CBC data. Current Interpretive Data was last revised on 2017. Testing performed by: [facility], [address] [place] [phone] Blood 03/16/2025 8:55 AM CDT 03/16/2025 9:09 AM CDT Herson Adkins MD LAB BLOOD ORDER EMILY Final Result JESSEHERBIE KYLE [facility] [place] [address] * (ABNORMAL) CBC with auto differential (03/16/2025 8:55 AM CDT) WBC 11.04(H) 3.80 - 9.90 K/cumm Comment:Testing performed by : [facility], [address] [place], [place] [phone] Hgb 13.9 11.9 - 15.5 g/dL CERNER BJ Comment:Testing performed by : [facility], [address] [place], [place] [phone] Hct 39.4 35.6 - 45.5 % CERNER BJ Comment:Testing performed by : [facility], [address] [place], [place] [phone] Plt 204 150 - 400 K/cumm CERNER BJ Comment:Testing performed by : [facility], [address] [place], [place] [phone] MPV 7.7 6.8 - 10.4 fL CERNER BJ Comment:Testing performed by : [facility], [address] [place], [place] [phone] RBC 4.27 3.90 - 5.20 M/cumm CERNER BJ Comment:Testing performed by : [facility], [address] [place] [address] MCV 92.1 81.3 - 96.4 fL CERNER BJ Comment:Testing performed by : [facility], [address] [place], [place] [phone] MCH 32.5 27.1 - 33.3 pg CERNER BJ Comment:Testing performed by : [facility], [address] [place] [address] MCHC 35.3 32.3 - 35.7 g/dL CERNER BJ Comment:Testing performed by : [facility], [address] [place] [address] RDW CV 14.3 11.1 - 14.9 % CERNER BJ Comment:Testing performed by : [facility], [address] [place] [address] NRBC abs 0.00 0.00 - 0.01 K/cumm CERNER BJ Comment:Testing performed by : [facility], [facility] [place] [phone] Blood 03/16/2025 8:55 AM CDT 03/16/2025 9:09 AM CDT Herson Adkins MD LAB BLOOD ORDER EMILY Final Result [facility] [place] [address] * Uric acid (03/16/2025 8:55 AM CDT) Pathologist [facility] Uric acid 6.6 2.5 - 7.0 mg/dL Blood 03/16/2025 8:55 AM CDT 03/16/2025 9:09 AM CDT Herson Adkins MD LAB BLOOD ORDER EMILY Final Result Performing Organization Address City/[facility] Co de Phone Number [facility] [place] [address] * (ABNORMAL) Comprehensive metabolic panel (03/16/2025 8:55 AM CDT) Pathologist [facility] Sodium 143 135 - 145 mmol/L Potassium, pl 3.9 3.3 - 4.9 mmol/L [facility] Comment:Hemolyzed; Potassium value may be falsely elevated by as much as 0.3-0.5 mmol/L. Suggest redraw and reanalysis. Chloride 106 97 - 110 mmol/L [facility] CO2 22 22 - 32 mmol/L [facility] Anion gap 15 2 - 15 mmol/L [facility] BUN 27(H) 6 - 25 mg/dL [facility] Creatinine 1.55(H) 0.60 - 1.10 mg/dL [facility] Glucose 99 70 - 199 mg/dL [facility] Comment: Interpretive Data Fasting glucose >/= 126 [...] Calcium 9.6 8.5 - 10.3 mg/dL [facility] Bilirubin, total 0.2 0.1 - 1.2 mg/dL [facility] Protein, pl 6.8 6.5 - 8.5 g/dL CERNER BJ Albumin 4.3 3.5 - 5.0 g/dL [facility] Alk phos 53 40 - 130 Units/L [facility]ER BJ ALT 20 7 - 45 Units/L [facility]ER B[facility] AST 20 10 - 45 Units/L [facility] Comment:Hemolyzed; result ma y be falsely elevated Blood 03/16/2025 8:55 AM CDT 03/16/2025 9:09 AM CDT Herson Adkins MD LAB BLOOD ORDER EMILY Final Result NITHIN [facility] [place] [address] * Dexa Axial and Forearm Bone Density Scan (09/01/2024 11:15 AM CDT) Anatomical Region Laterality Modality Wrist, Body N/A Radiographic Matilde ging Narrative 09/01/2024 1:24 PM CDT Patient Name: Veronica Snow Date of : 1960 Date of scan: 09/01/2024 Bone mineral density was performed on a [employer] Discovery Densitometer. Based on machine cross-calibration and precision studies the least significant changes of this densitometer is 0.024 g/cm2 at the spine, 0.020 g/cm2 at the total proximal femur, and 0.014g/cm2 at the forearm. HISTORY: This is a 63 y.o. postmenopausal female with a history of bone marrow transplant and osteoporosis. She reports that she has never smoked. She has never been exposed to tobacco smoke. She has never used smokeless tobacco. Currently on treatment with denosumab (Prolia) and diuretics, previously treated with zoledronic acid (Reclast), and current complaint of back pain. INDICATIONS: Menopause status, treatment monitoring, history of prior right wrist fracture, and history of osteoporosis. FINDINGS: BONE MINERAL DENSITY OF THE LUMBAR SPINE Bone Mineral Density (BMD) of the lumbar spine was measured from L1-L4 and the average density was calculated to be 0.786 gm/cm2. This corresponds to a T-score (standard deviations from the mean of young adults) of -2.4. When compared to the previous study of 09/17/2023 there has been a 0.045 gm/cm (6.0%) increase in bone density that is considered significant. BONE MINERAL DENSITY OF THE PROXIMAL FEMUR Bone Mineral Density (BMD) of the left hip total was found to be 0.722 gm/cm2. This corresponds to a T-score standard deviations from the mean of young adults of -1.8. Femoral neck is 0.612 gm/cm2 with a T-score (standard deviations from the mean of young adults) of -2.1. When compared to the previous study of 09/17/2023 there has been no significant changes in bone density. BONE MINERAL DENSITY OF THE FOREARM Bone Mineral density (BMD) of the left proximal 1/3 of the radius measures 0.532 gm/cm2. This corresponds to a T-score (standard deviations from the mean of young adults) of -2.7. When compared to the previous study of 09/17/2023 there has been no significant changes in bone density. A forearm bone density study was performed in addition to the routine study due to history of hypercalcemia . SUMMARY: Bone mineral density shows evidence of osteoporosis and marked increase risk of fracture. There has been a significant increase in bone density since previous measurement. ADDITIONAL [...] mineral density scan were prepared by Netta Hernandez)(Kenn)(MARILEE) CBDT who is accredited by the International Society of Clinical Densitometry. The overall patient assessment and scan interpretation were performed by Nivia Duncan M.D. who is certified by the International Society of Clinical Densitometry. [id number] Sheridan Veliz MD IMG DXA PROCEDURES Final Result from Last 3 Months or Most Recently Relevant to Health Maintenance Insurance [employer] [address] [place] [address] [facility] [employer] [facility] Advance Directives For more information, please contact: [phone] * Full Code (Latest Code Status on File) Date Activated Date Inactivated Comments 01/18/2021 10:42 AM 01/18/2021 4:04 PM * Full Code Date Activated Date Inactivated Comments 01/18/2021 10:12 AM 01/18/2021 10:42 AM Care Teams Ball Winder Relationship Specialty Start Date End Date Gwen Lui PA [address] [place] [id number] PCP - General 01/18/21 Herson Adkins MD Medical Oncologist/Non Licensed Nuclear Equipment Operator Medical Oncology 01/11/21
[2025-05-27 07:22] VITALS: BP 133/74; PULSE 90; RESP 18; TEMP 36; O2SAT 98; BMI 25.4
[2025-05-27] MEDS: LACTATED RINGERS 1,000 ML 150 ML IV CONT (07:25)
--- NOTE | 2025-05-27 07:47 | PM.IMHP2 ---
H&P: HPI History of Present Illness Date/Time: 05/27/25 07:47 Chief Complaint: Family history of colon cancer Narrative: This patient has family history of colorectal cancer. Her sister had rectal cancer at age 60 approximately. Her last colonoscopy was 10 years ago. Review of Systems Review of Systems: All systems reviewed & are unremarkable except as noted in HPI and below PMFSH Family History Family History Mother Family history of cardiovascular disease Father Cerebrovascular accident Other Family history of coronary artery disease Social History Social History Smoking status: Never smoker Second hand tobacco smoke exposure: No Alcohol intake: never Substance use: unknown Lack of Transportation: No Lack of Food: Never True Current Housing: I Have Housing Concerned About Future Housing: No Difficulty Paying Gas/Electric Bills: No Difficulty Paying for Meds: No Currently Unemployed: No Education: High School Diploma/GED Difficulty w/ Childcare or Family Care: No Gender identity (if verbalized by the patient): Female Meds Home Medications and Allergies Home Medications ?Medication ?Instructions ?Recorded ?Confirmed ?Type acyclovir 400 mg tablet 400 mg PO DAILY 05/04/21 05/27/25 History cetirizine 10 mg tablet 10 mg PO DAILY PRN allergy symptoms 05/04/21 05/27/25 History famotidine 20 mg tablet 20 mg PO DAILY 05/04/21 05/27/25 History prochlorperazine maleate 10 mg 10 mg PO Q8H PRN nausea and 05/04/21 05/06/25 History tablet (Compazine) vomiting ascorbic acid (vitamin C) 1,000 mg 2 g PO DAILY 01/22/24 05/27/25 History capsule diphenhydramine HCl 25 mg capsule 25 mg PO .Once a month 01/22/24 05/06/25 History (Benadryl) immune globulin(hum),capr(IgG) 10 ml IV .Q other month 01/22/24 02/17/25 History % intravenous solution sodium bicarbonate 650 mg tablet See Rx Instructions .Route 04/14/24 05/06/25 Rx .COMPLEX #180 tabs ezetimibe 10 mg tablet 10 mg PO DAILY #30 tabs 08/14/24 05/27/25 Rx pravastatin 20 mg tablet See Rx Instructions .Route 12/23/24 05/27/25 Rx .COMPLEX #90 tabs amlodipine 10 mg tablet See Rx Instructions .Route 12/28/24 05/27/25 Rx .COMPLEX #90 tabs daratumumab 1,800 15 ml subcut MONTHLY 02/17/25 05/06/[address] [id number] 30,000 unit/15 mL subcut soln denosumab 120 mg/1.7 mL (70 mg/mL) 120 mg subcut [id number] 02/17/25 05/06/25 History subcutaneous solution (Xgeva) hydrochlorothiazide 12.5 mg capsule See Rx Instructions .Route 02/26/25 05/27/25 Rx .COMPLEX #90 caps Allergies Allergy/AdvReac Type Severity Reaction Status Date / Time No Known Allergies Allergy Unknown Verified 05/27/25 07:20 Vital Signs Vital Signs - 24 hr 05/27/25 07:22 Temperature 96.8 F L Pulse Rate 90 Respiratory Rate 18 Blood Pressure 133/74 Pulse Oximetry 98 Oxygen Delivery Room Air Exam Const: General: cooperative and healthy appearing Resp: Effort & Inspection: normal respiratory effort and able to speak in complete sentences Auscultation: clear to auscultation bilaterally Cardio: Rate: regular rate Rhythm: regular rhythm GI: Inspection: normal to inspection GI Palp: No No hepatosplenomegaly present Auscultation: normal bowel sounds Rectal Exam: deferred Skin: General skin exam: normal color Psych: Appearance: grossly normal Mental Status: mental status grossly normal Assessment and Plan Assessment and plan (1) Family history of rectal cancer: Code(s): Z80.0 - Family history of malignant neoplasm of digestive organs Status: Acute Assessment and Plan: The patient is deemed a good candidate for the procedure. Consent signed. Will proceed. Prior Studies I have reviewed the following patient records and this information was taken into consideration when formulating the assessment and plan.: previous labs, previous ER visits, previous hospitalizations and previous clinic visits
--- NOTE | 2025-05-27 07:51 | WPDANESEPPF ---
Anes - Initial Pre Proc Eval Procedure: Operation Date: 05/27/25 08:30 Proposed Procedures p Screening Colonoscopy - Pedro Ramsay MD Date/Time: 05/27/25 07:51 Surgeon: Pedro Ramsay MD Pre Op Diagnosis: Screening Patient Data Age: 64 Gender: F Height: 1.63 m Weight: 67.2 kg Last Vital Signs Temp 36.0 C L 05/27/25 07:22 Pulse 90 05/27/25 07:22 Resp 18 05/27/25 07:22 BP 133/74 05/27/25 07:22 Pulse Ox 98 05/27/25 07:22 O2 Del Method Room Air 05/27/25 07:22 Allergies Allergy/AdvReac Type Severity Reaction Status Date / Time No Known Allergies Allergy Unknown Verified 05/27/25 07:20 Home Medications ?Medication ?Instructions ?Recorded ?Confirmed ?Type acyclovir 400 mg tablet 400 mg PO DAILY 05/04/21 05/27/25 History cetirizine 10 mg tablet 10 mg PO DAILY PRN allergy symptoms 05/04/21 05/27/25 History famotidine 20 mg tablet 20 mg PO DAILY 05/04/21 05/27/25 History prochlorperazine maleate 10 mg 10 mg PO Q8H PRN nausea and 05/04/21 05/06/25 History tablet (Compazine) vomiting ascorbic acid (vitamin C) 1,000 mg 2 g PO DAILY 01/22/24 05/27/25 History capsule diphenhydramine HCl 25 mg capsule 25 mg PO .Once a month 01/22/24 05/06/25 History (Benadryl) immune globulin(hum),capr(IgG) 10 ml IV .Q other month 01/22/24 02/17/25 History % intravenous solution sodium bicarbonate 650 mg tablet See Rx Instructions .Route 04/14/24 05/06/25 Rx .COMPLEX #180 tabs ezetimibe 10 mg tablet 10 mg PO DAILY #30 tabs 08/14/24 05/27/25 Rx pravastatin 20 mg tablet See Rx Instructions .Route 12/23/24 05/27/25 Rx .COMPLEX #90 tabs amlodipine 10 mg tablet See Rx Instructions .Route 12/28/24 05/27/25 Rx .COMPLEX #90 tabs daratumumab 1,800 15 ml subcut MONTHLY 02/17/25 05/06/25 History [id number] 30,000 unit/15 mL subcut soln denosumab 120 mg/1.7 mL (70 mg/mL) 120 mg subcut [id number] 02/17/25 05/06/25 History subcutaneous solution (Xgeva) hydrochlorothiazide 12.5 mg capsule See Rx Instructions .Route 02/26/25 05/27/25 Rx .COMPLEX #90 caps Patient hx anesthesia problems: none Family hx anesthesia problems: none Results Review: All pre-operative results and documents have been reviewed as part of the pre-operative evaluation. [facility] Family History Family History Mother Family history of cardiovascular disease Father Cerebrovascular accident Other Family history of coronary artery disease Social History Social History Smoking status: Never smoker Second hand tobacco smoke exposure: No Alcohol intake: never Substance use: unknown Lack of Transportation: No Lack of Food: Never True Current Housing: I Have Housing Concerned About Future Housing: No Difficulty Paying Gas/Electric Bills: No Difficulty Paying for Meds: No Currently Unemployed: No Education: High School Diploma/GED Difficulty w/ Childcare or Family Care: No Gender identity (if verbalized by the patient): Female Anes - Eval Final PreProcedure Day of Procedure 05/27/25 07:51 Patient weight: normal Heart: regular rate and rhythm Lungs: clear to auscultation Airway: Mallampati scale class II Neurological: alert and oriented Last oral intake: >/= 8 hours ASA classification: III Emergent: no Anesthetic plan: proceed Anesthesia type and monitoring: general GIVS and standard monitoring Results Review: All pre-operative results and documents have been reviewed as part of the pre-operative evaluation. Informed Consent: The patient's anesthetic plan and its attendant risks and benefits were discussed with the patient/family/POA. Questions were solicited and answers provided to the satisfaction of the patient/family/POA.
[2025-05-27 08:55] VITALS: BP 117/68; PULSE 77; RESP 21; O2SAT 99
[2025-05-27 09:05] VITALS: BP 124/72; PULSE 76; RESP 25; O2SAT 99
[2025-05-27 09:15] VITALS: BP 138/87; PULSE 72; RESP 18; O2SAT 100
== END 2025-05-27 09:27 | disposition home or self-care (01) ==
PROVIDERS: PCP Registered Nurse; Referring Provider Registered Nurse; Visit Provider Internal Medicine Gastroenterology
PROC: 0DJD8ZZ Inspection of Lower Intestinal Tract, Via Natural or Artificial Opening Endoscopic (ICD-10-PCS; CPT 45378; principal; 2025-05-27 08:30)
DX: Z12.11 Encounter for screening for malignant neoplasm of colon (principal); K64.8 Other hemorrhoids; K57.30 Diverticulosis of large intestine without perforation or abscess without bleeding; Z80.0 Family history of malignant neoplasm of digestive organs; Z82.49 Family history of ischemic heart disease and other diseases of the circulatory system
CPT/HCPCS: 45378; J2704; J7120